=== PATIENT | male | born 1970 | race Caucasian/White ===

== ENCOUNTER 2016-05-08 03:05 | Inpatient (IN) | payer MEDICARE, MEDICAID ==
[~2016-05-08] VITALS: Ht 180.3 cm; Wt 163.9 kg
[~2016-05-08 03:05] MED LIST: ASPI-482 PO; CARV25TA PO; CIPR500T94 PO; CRESTOR40 MG PO; CRESTOR5 MG PO; DIAZ2TAB3 PO; ESOM40CA25 PO; EZET10TA3 PO; FLUT9.9S NS; FURO-69 PO; FURO40TA4 PO; HYDR8TAB29 PO; ISOS60TA2 PO; LISI10TA2 PO; MORP100T30 PO; NIAC500T PO; NITROGLYCERIN; OMEG1CAP6 PO; OXYC10TA PO; OXYM10TA28 PO; OXYM15MI4 NS; OXYM40TA PO; PRAS10TA4 PO
--- NOTE | 2016-05-08 03:23 | PHYS DOC ---
Past Medical History Past Medical History: CHF, GERD, High Cholesterol, Hypertension, Kidney Stone, [place], Other Additional Past Medical Histor: CHRONIC PAIN SEES A PAIN DR AND HAS A SIGNED CONTRCT!!!!!! Past Surgical History: Cholecystectomy, Coronary Bypass Surgery, Knee Replacement, Pacemaker, Tonsillectomy, Other Additional Past Surgical Histo: cardiac stents, LEFT FEMUR SURGERY, karsten R femur Alcohol Use: Rarely Drug Use: None Adult General Chief Complaint Chief Complaint: CHEST PAIN HPI HPI 45-year-old male with significant history of CAD with stents, CHF, hypertension , diabetes, hyperlipidemia who presents with approximately 30-45 minutes of significant chest discomfort that awoke him from sleep as well as significant shortness of breath. Patient states he feels somewhat nauseated as well. He took 2 nitroglycerin sprays without relief. EMS stated his EKG was concerning for possible STEMI and the transfer him emergently here. Patient was saturating 91% upon EMS arrival in mild respiratory distress.He does state he's had significant swelling in his lower extremities over the last several weeks. Currently he rates his pain a 7/10 on the pain scale localized all to the midsternal area. Review of Systems Review of Systems Constitutional: Denies fever or chills [] Eyes: Denies change in visual acuity, redness, or eye pain [] HENT: Denies nasal congestion or sore throat [] Respiratory: Denies cough, has shortness of breath [] Cardiovascular: No additional information not addressed in HPI [] GI: Denies abdominal pain, has nausea, denies vomiting, denies bloody stools or diarrhea [] : Denies dysuria or hematuria [] Musculoskeletal: Denies back pain or joint pain [] Integument: Denies rash or skin lesions [] Neurologic: Denies headache, focal weakness or sensory changes [] Endocrine: Denies polyuria or polydipsia [] Current Medications Current Medications Current Medications Medications (Trade) Dose Ordered Sig/Frank Start Time Stop Time Status Last Admin Dose Admin Acetaminophen (Tylenol) 650 mg PRN Q4HRS PRN 05/08/16 04:00 05/09/16 03:59 Aspirin 325 mg 325 mg 1X ONCE 05/08/16 03:30 05/08/16 03:31 DC 05/08/16 03:32 325 MG Furosemide (Lasix) 40 mg 1X ONCE 05/08/16 04:15 05/08/16 04:16 UNV 05/08/16 04:23 40 MG Morphine Sulfate 4 mg PRN Q2HR PRN 05/08/16 04:00 05/09/16 03:59 Nitroglycerin/ Dextrose (Nitroglycerin Drip) 250 ml @ 0 mls/hr 1X ONCE 05/08/16 03:30 05/08/16 03:31 DC Ondansetron HCl (Zofran) 4 mg PRN Q8HRS PRN 05/08/16 04:00 05/09/16 03:59 Allergies Allergies Allergies Coded Allergies Type Severity Reaction Last Updated Verified Penicillins Allergy Intermediate RESPIRATORY DISTRESS,HIVES 05/31/15 No Physical Exam Physical Exam Constitutional: Well developed, well nourished, mild distress, non-toxic appearance. [] HENT: Normocephalic, atraumatic, bilateral external ears normal, oropharynx moist, no oral exudates, nose normal. [] Eyes: PERRLA, EOMI, conjunctiva normal, no discharge. [] Neck: Normal range of motion, no tenderness, supple, no stridor. [] Cardiovascular:Heart rate regular rhythm, no murmur [] Lungs & Thorax: Breath sounds diminished bilaterally with mild respiratory distress [] Abdomen: Bowel sounds normal, soft, no tenderness, no masses, no pulsatile masses. [] Skin: Warm, dry, no erythema, no rash. [] Back: No tenderness, no CVA tenderness. [] Extremities: No tenderness, no cyanosis, no clubbing, ROM intact, no edema. [] Neurologic: Alert and oriented X 3, normal motor function, normal sensory function, no focal deficits noted. [] Psychologic: Affect normal, judgement normal, mood normal. [] Current Patient Data Vital Signs Vital Signs Date Time Temp Pulse Resp B/P Pulse Ox O2 Delivery O2 Flow Rate FiO2 05/08/16 04:00 20 05/08/16 03:51 97.9 84 226/162 100 NonRebreather Mask 15 97.9 Lab Values Laboratory Tests Test 05/08/16 03:10 White Blood Count 5.5x10^3/uL (4.0-11.0) Red Blood Count 4.63x10^6/uL (4.30-5.70) Hemoglobin 11.9g/dL (13.0-17.5) L Hematocrit 38.3% (39.0-53.0) L Mean Corpuscular Volume 83fL (79-100) Mean Corpuscular Hemoglobin 26pg (25-35) Mean Corpuscular Hemoglobin Concent 31g/dL (31-37) Red Cell Distribution Width 18.6% (11.5-14.5) H Platelet Count 109x10^3/uL (140-400) L Neutrophils (%) (Auto) 67% (31-73) Lymphocytes (%) (Auto) 19% (24-48) L Monocytes (%) (Auto) 13% (0-9) H Eosinophils (%) (Auto) 1% (0-3) Basophils (%) (Auto) 1% (0-3) Neutrophils # (Auto) 3.6x10^3uL (1.8-7.7) Lymphocytes # (Auto) 1.0x10^3/uL (1.0-4.8) Monocytes # (Auto) 0.7x10^3/uL (0.0-1.1) Eosinophils # (Auto) 0.1x10^3/uL (0.0-0.7) Basophils # (Auto) 0.0x10^3/uL (0.0-0.2) Sodium Level 142mmol/L (136-145) Potassium Level 4.2mmol/L (3.5-5.1) Chloride Level 104mmol/L (98-107) Carbon Dioxide Level 25mmol/L (21-32) Anion Gap 13 (6-14) Blood Urea Nitrogen 15mg/dL (8-26) Creatinine 1.2mg/dL (0.7-1.3) Estimated GFR (Cockcroft-Gault) 64.9 Glucose Level 108mg/dL (70-99) H Calcium Level 8.8mg/dL (8.5-10.1) Troponin I Quantitative 0.026ng/mL (0.000-0.055) OF-Zxl-X-Type Natriuretic Peptide 2659pg/mL (0-124) H Laboratory Tests 05/08/16 03:10 Laboratory Tests 05/08/16 03:10 EKG EKG EKG as interpreted by me shows a sinus rhythm with frequent PVCs and a nonspecific intraventricular block with an approximate rate of 87 bpm. This EKG does not meet STEMI criteria. Repeat EKG at 0336 reveals a sinus rhythm with frequent PVCs. Heart rate of approximately 90 bpm. There is continued intraventricular block seen. There is no evidence of any ongoing ischemic changes. There is artifact seen throughout. This EKG does not meet STEMI criteria at this time. Radiology/Procedures Radiology/Procedures One view of the chest as interpreted by me demonstrates significant vascular congestion and cardiomegaly. Course & Med Decision Making Course & Med Decision Making Pertinent Labs and Imaging studies reviewed. (See chart for details) 45-year-old male who's having significant chest discomfort and shortness of breath will be admitted to the hospital for further evaluation and treatment. His EKG will be repeated multiple times. I will obtain chest x-ray and laboratory workup as well as cardiac enzymes. He'll be admitted with cardiology consult to the hospital service.His chest film is consistent with vascular congestion and cardiomegaly and CHF findings. I will be giving him a dose of morphine for his ongoing chest pain. His EKG was repeated and did not show any significant change. His pro-BNP is elevated. A dose of furosemide will be given. The admitted for his ongoing chest pain and likely CHF exacerbation. His case will be discussed with Dr. Santos and a cardiology consult will be placed. His first set of cardiac enzymes was 0.03. Dragon Disclaimer Dragon Disclaimer This electronic medical record was generated, in whole or in part, using a voice recognition dictation system. Departure Departure Impression: Primary Impression: Chest pain Additional Impression: CHF exacerbation Disposition: ADMITTED INPATIENT Admitting Physician: Kiana Santos Condition: STABLE Referrals: ANDREA FOX (PCP) Problem Qualifiers JOCELYN LEAL DO May 08, 2016 03:23
[2016-05-08 03:24] LABS: BASO % 1 % (0-3); EOS % 1 % (0-3); HEMATOCRIT 38.3 % (39.0-53.0); HEMOGLOBIN 11.9 g/dL (13.0-17.5); LYMPH % 19 % (24-48); MEAN CORPUSCULAR HEMOGLOBIN 26 pg (25-35); MEAN CORPUSCULAR HGB CONC 31 g/dL (31-37); MEAN CORPUSCULAR VOLUME 83 fL (79-100); MONO % 13 % (0-9); NEUT % 67 % (31-73); PLATELET COUNT 109 x10^3/uL (140-400); RED BLOOD COUNT 4.63 x10^6/uL (4.30-5.70); RED CELL DISTRIBUTION WIDTH 18.6 % (11.5-14.5); WHITE BLOOD COUNT 5.5 x10^3/uL (4.0-11.0)
[2016-05-08] MEDS ORDERED: NITROGLYCERIN PREMIX 250 ML IV ONE (03:30)
[2016-05-08] MEDS ORDERED: ASPIRIN 325 MG TABLET PO ONE (03:30)
[2016-05-08 03:33] LABS: CALCIUM 8.8 mg/dL (8.5-10.1); CREATININE 1.2 mg/dL (0.7-1.3); GFR 64.9; POTASSIUM 4.2 mmol/L (3.5-5.1)
[2016-05-08] MEDS ORDERED: ACETAMINOPHEN 325 MG TABLET. PO PRN (04:00)
[2016-05-08] MEDS ORDERED: MORPHINE SULFATE 4 MG/ML DISP.SYRIN. IV ONE (04:00)
[2016-05-08] MEDS ORDERED: ONDANSETRON PF 4 MG/2 ML VIAL. IV PRN (04:00)
[2016-05-08] MEDS ORDERED: FUROSEMIDE 40 MG/4 ML VIAL IVP ONE (04:15)
--- NOTE | 2016-05-08 04:48 | ACF ---
Admit Criteria Forms Admit Criteria Forms Admit Criteria Forms CHEST PAIN Clinical Indications for Admission to Inpatient Care (Place 'X' for any and all applicable criteria): Admission is indicated for chest pain and ANY ONE of the following(1)(2)(3)(4)(5 ): [ ]I. Angina with acute coronary syndrome (Also use Myocardial Infarction or Angina guideline) [ ]II. Hemodynamic instability [X]III. Angina needing acute intervention as indicated by ALL of the following( 11)(12): [X]a) Unstable angina is present as indicated by angina that is ANY ONE of the following: [ ]i) New onset [ ]ii) Nocturnal [X]iii) Prolonged at rest [ ]iv) Progressive [X]b) Angina warrants acute intervention as indicated by ANY ONE of the following: [ ]i) Recurrent angina (e.g, not responding as previously to treatment) [ ]ii) Angina at rest or with low-level activities despite initial medical therapy [ ]iii) New or presumably new ST-segment depression on ECG [X]iv) Signs or symptoms of heart failure (eg, dyspnea, pulmonary edema) [ ]v) New or worsening mitral regurgitation [ ]vi) Hemodynamic instability [ ]vii) Dangerous arrhythmia (eg, sustained ventricular tachycardia) [ ]viii) History of percutaneous coronary intervention within 6 months [ ]ix) History of coronary artery bypass graft surgery [ ]x) CARMEN risk score of 2 or greater[A] [ ]xi) History of Diabetes(14) [ ]xii) High-risk cardiac ischemia findings on noninvasive testing (e.g, echocardiogram, treadmill testing, nuclear scan) [ ]xiii) Chronic renal insufficiency (ie, estimated GFR less than 60 mL/min/1.732m) [ ]xiv) Left ventricular ejection fraction less than 40% [ ]IV. Evidence of TN (eg, cardiac biomarkers positive, ST-segment elevation on ECG) also use Myocardial Infarction Criteria Form. [ ]V. Pulmonary edema [ ]. Respiratory distress [ ]VII. Chest pain indicative of serious diagnosis other than coronary artery disease (eg, aortic dissection) [ ]VIII. Contraindications and/or Inappropriate clinical situations for Observational Care in patients with Chest Pain, when ANY ONE of the following is required: [ ]a) Patient with risk factor for pulmonary embolism, acute coronary syndrome and myocardial infarction (18) [ ]b) Patient with Pulmonary embolism require an average LOS of 4.3 days, therefore emergency department observation management is inappropriate 18,23 [ ]c) Painful condition/s in the elderly, have the highest rate of recidivism after emergency department observation management (10.8%) 20,21,22 [ ]d) Elevated cardiac biomarker requires intensive and exhaustive care (19) [ ]IX. General contraindications and/or Inappropriate clinical situations for Observational Care in patients with Chest Pain, when ANY ONE of the following is required: [ ]a) Prediction of prolongation of LOS based on ANY ONE of the following may be considered as a contraindication for observational care 2, 3, 4, 5, 6, 7, 8, 9, 10, 11 [ ]i) Age > 65 yrs. [ ]ii) Patient arriving by ambulance [ ]iii) Patient with high acuity [ ]iv) Patient requiring vital sign monitoring [ ]v) Patient on IV medication [ ]b) Systolic blood pressures 180mmHg 3,12 [ ]c) Patient with altered mental status including delirium and other alteration of consciousness, (3) [ ]d) Patient whose discharge disposition will be to a fpc home or rehabilitation home should not be managed in Emergency Department Observation Unit. CMS rule requires 3 days hospital stay before such placement. 3,13 [ ]e) Patient with failure to thrive due to broad array of etiologies 3,16,17 [ ]f) Inability to ambulate 3,14 Extended stay beyond goal length of stay may be needed for (1)(28): [ ]a) Specific condition diagnosed after evaluation (eg, pulmonary embolism, aortic dissection) [ ]b) Unstable angina [ ]c) Continued suspicion of acute coronary syndrome with inability to complete needed cardiac evaluation (eg, patient clinically unable to undergo stress testing) [ ]d) Myocardial infarction (Contents from ANGINA and CHEST PAIN clinical indications for admission to inpatient care have been integrated in this form) The original [employer] content created by [employer] has been revised. The portions of the content which have been revised are identified through the use of italic text or in bold, and [facility] has neither reviewed nor approved the modified material. All other unmodified content is copyright [facility]. Please see references footnoted in the original [facility] edition 2016 GENARO GARCIA May 08, 2016 04:48
[2016-05-08 04:50] VITALS: BP 145/81
[2016-05-08] MEDS: MORPHINE SULFATE 4 MG/ML DISP.SYRIN. IV PRN ×5 (06:08→18:55)
--- NOTE | 2016-05-08 06:30 | EKG ---
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
--- NOTE | 2016-05-08 07:27 | RAD ---
EXAM: Chest one view. HISTORY: Chest pain. COMPARISON: 12/04/2012. FINDINGS: A frontal view of the chest is obtained. A left-sided pacer/defibrillator has its leads in the right atrium and right ventricle. There are changes of coronary artery bypass grafting. There are no confluent infiltrates. There appears to be mild vascular congestion. There is no pneumothorax or pleural effusion. The heart is moderately enlarged. IMPRESSION: 1. Moderate cardiomegaly and vascular congestion.
[2016-05-08 07:40] VITALS: BP 108/62
[2016-05-08] MEDS: CYCLOBENZAPRINE 10 MG TABLET. PO PRN (08:13)
--- NOTE | 2016-05-08 08:56 | EKG ---
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
[2016-05-08 10:24] LABS: INR 1.4 (0.8-1.1); PROTHROMBIN TIME PATIENT 16.6 SEC (11.7-14.0)
[2016-05-08 10:47] LABS: ALBUMIN 3.1 g/dL (3.4-5.0); DIRECT BILIRUBIN 0.5 mg/dL (0.0-0.2); MAGNESIUM 2.1 mg/dL (1.8-2.4); TOTAL BILIRUBIN 1.4 mg/dL (0.2-1.0)
[2016-05-08 10:48] LABS: CHOLESTEROL/HDL RATIO 6.4
[2016-05-08] MEDS ORDERED: SULFUR HEXAFLUORIDE MICROSPHR 25 MG VIAL. IVP ONE ×3 (11:00→14:00)
--- NOTE | 2016-05-08 12:14 | PDOC1 ---
History and Physical Past Medical History Cardiovascular: AFIB, CAD, CHF, HTN, [place], Hyperlipidemia, Other (cardiomyopathy) Pulmonary: Other (VALERY) CENTRAL NERVOUS SYSTEM: Periperal neuropathy GI: GERD Heme/Onc: No pertinent hx Hepatobiliary: No pertinent hx Psych: Anxiety Rheumatologic: No pertinent hx Infectious disease: No pertinent hx ENT: No pertinent hx Renal/: Chronic renal insuff, Other (ureterolithiasis) Endocrine: No pertinent hx Dermatology: No pertinent hx Past Surgical History Past Surgical History: Pacemaker (AICD), Cholecystectomy, CABG, Total knee replacement, Tonsillectomy, Other (left femoral fracture repair; PCI/stents) Family History Family History: Heart Disease Social History ALCOHOL: occassional Drugs: None Current Problem List Problem List Problems Medical Problems: (1) Chest pain Status: Acute (2) CHF exacerbation Status: Acute Current Medications Current Medications Current Medications Medications (Trade) Dose Ordered Sig/Frank Start Time Stop Time Status Last Admin Dose Admin Acetaminophen (Tylenol) 650 mg PRN Q4HRS PRN 05/08/16 04:00 05/09/16 03:59 Aspirin (Ecotrin) 81 mg [id number] 05/08/16 11:00 Aspirin 325 mg 325 mg 1X ONCE 05/08/16 03:30 05/08/16 03:31 DC 05/08/16 03:32 325 MG Atorvastatin Calcium (Lipitor) 80 mg QHS 05/08/16 21:00 Carvedilol (Coreg) 25 mg BIDWMEALS 05/08/16 11:00 Cyclobenzaprine HCl (Flexeril) 10 mg PRN Q8HRS PRN 05/08/16 08:15 05/08/16 08:13 10 MG EZETIMIBE (Zetia) 10 mg HS 05/08/16 21:00 Fish Oil (Fish Oil) 1,000 mg DAILY 05/08/16 11:00 Furosemide (Lasix) 40 mg BID94 05/08/16 16:00 Isosorbide Mononitrate (Imdur) 60 mg DAILY 05/08/16 11:00 Lisinopril (Prinivil) 10 mg DAILYWLUN 05/08/16 12:00 Morphine Sulfate 4 mg PRN Q2HR PRN 05/08/16 04:00 05/09/16 03:59 05/08/16 11:45 4 MG Nitroglycerin/ Dextrose (Nitroglycerin Drip) 250 ml @ 0 mls/hr 1X ONCE 05/08/16 03:30 05/08/16 03:31 DC Ondansetron HCl (Zofran) 4 mg PRN Q8HRS PRN 05/08/16 04:00 05/09/16 03:59 Pantoprazole Sodium (Protonix) 40 mg DAILYAC 05/08/16 11:00 Sulfur Hexafluoride Microspheres (Lumason) 25 mg STK-MED ONCE 05/08/16 11:05 05/08/16 11:06 DC Allergies Allergies Allergies Coded Allergies Type Severity Reaction Last Updated Verified Penicillins Allergy Intermediate RESPIRATORY DISTRESS,HIVES 05/31/15 No ROS Review of System CONSTITUTIONAL: No fever or chills EYES: No recent changes SKIN: No rash or itching CARDIOVASCULAR: No chest pain, syncope, palpitations, or edema RESPIRATORY: SOB or cough GASTROINTESTINAL: No nausea, vomiting or abdominal pain NEUROLOGICAL: No headaches or weakness ENDOCRINE: No cold or heat intolerance GENITOURINARY: No urgency or frequency of urination MUSCULOSKELETAL: healed scars. LYMPHATICS: No enlarged lymph nodes PSYCHIATRIC: No anxiety or depression Physical Exam Physical Exam GEN.: No apparent distress. Alert and oriented. HEENT: Head is normocephalic, atraumatic NECK: Supple. no jvd LUNGS: basal rales. obese. HEART: RRR, S1, S2 present. Peripheral pulses intact ABDOMEN: Soft, nontender. Positive bowel sounds. EXTREMITIES: Without any cyanosis. NEUROLOGIC: Normal speech, normal tone PSYCHIATRIC: Normal affect, normal mood. SKIN: healed scars Vitals Vitals Vital Signs Date Time Temp Pulse Resp B/P Pulse Ox O2 Delivery O2 Flow Rate FiO2 05/08/16 11:45 20 Nasal Cannula 2.0 05/08/16 07:40 97.9 78 108/62 96 97.9 Labs Labs Laboratory Tests Test 05/08/16 03:10 05/08/16 03:42 05/08/16 09:30 White Blood Count 5.5x10^3/uL (4.0-11.0) Red Blood Count 4.63x10^6/uL (4.30-5.70) Hemoglobin 11.9g/dL (13.0-17.5) Hematocrit 38.3% (39.0-53.0) Mean Corpuscular Volume 83fL (79-100) Mean Corpuscular Hemoglobin 26pg (25-35) Mean Corpuscular Hemoglobin Concent 31g/dL (31-37) Red Cell Distribution Width 18.6% (11.5-14.5) Platelet Count 109x10^3/uL (140-400) Neutrophils (%) (Auto) 67% (31-73) Lymphocytes (%) (Auto) 19% (24-48) Monocytes (%) (Auto) 13% (0-9) Eosinophils (%) (Auto) 1% (0-3) Basophils (%) (Auto) 1% (0-3) Neutrophils # (Auto) 3.6x10^3uL (1.8-7.7) Lymphocytes # (Auto) 1.0x10^3/uL (1.0-4.8) Monocytes # (Auto) 0.7x10^3/uL (0.0-1.1) Eosinophils # (Auto) 0.1x10^3/uL (0.0-0.7) Basophils # (Auto) 0.0x10^3/uL (0.0-0.2) Sodium Level 142mmol/L (136-145) Potassium Level 4.2mmol/L (3.5-5.1) Chloride Level 104mmol/L (98-107) Carbon Dioxide Level 25mmol/L (21-32) Anion Gap 13 (6-14) Blood Urea Nitrogen 15mg/dL (8-26) Creatinine 1.2mg/dL (0.7-1.3) Estimated GFR (Cockcroft-Gault) 64.9 Glucose Level 108mg/dL (70-99) Calcium Level 8.8mg/dL (8.5-10.1) Troponin I Quantitative 0.026ng/mL (0.000-0.055) 0.026ng/mL (0.000-0.055) DV-Sar-V-Type Natriuretic Peptide 2659pg/mL (0-124) Bedside Troponin I 0.03ng/ml (<0.08) Prothrombin Time 16.6SEC (11.7-14.0) Prothromb Time International Ratio 1.4 (0.8-1.1) Magnesium Level 2.1mg/dL (1.8-2.4) Total Bilirubin 1.4mg/dL (0.2-1.0) Direct Bilirubin 0.5mg/dL (0.0-0.2) Aspartate Amino Transf (AST/SGOT) 27U/L (15-37) Alanine Aminotransferase (ALT/SGPT) 18U/L (16-63) Alkaline Phosphatase 115U/L (46-116) Total Protein 8.0g/dL (6.4-8.2) Albumin 3.1g/dL (3.4-5.0) Triglycerides Level 59mg/dL (0-150) Cholesterol Level 127mg/dL (0-200) LDL Cholesterol, Calculated 95mg/dL (0-100) VLDL Cholesterol, Calculated 12mg/dL (0-40) HDL Cholesterol 20mg/dL (40-60) Cholesterol/HDL Ratio 6.4 Thyroid Stimulating Hormone (TSH) 3.841uIU/mL (0.358-3.74) Laboratory Tests Test 05/08/16 03:10 05/08/16 03:42 05/08/16 09:30 White Blood Count 5.5x10^3/uL (4.0-11.0) Red Blood Count 4.63x10^6/uL (4.30-5.70) Hemoglobin 11.9g/dL (13.0-17.5) Hematocrit 38.3% (39.0-53.0) Mean Corpuscular Volume 83fL (79-100) Mean Corpuscular Hemoglobin 26pg (25-35) Mean Corpuscular Hemoglobin Concent 31g/dL (31-37) Red Cell Distribution Width 18.6% (11.5-14.5) Platelet Count 109x10^3/uL (140-400) Neutrophils (%) (Auto) 67% (31-73) Lymphocytes (%) (Auto) 19% (24-48) Monocytes (%) (Auto) 13% (0-9) Eosinophils (%) (Auto) 1% (0-3) Basophils (%) (Auto) 1% (0-3) Neutrophils # (Auto) 3.6x10^3uL (1.8-7.7) Lymphocytes # (Auto) 1.0x10^3/uL (1.0-4.8) Monocytes # (Auto) 0.7x10^3/uL (0.0-1.1) Eosinophils # (Auto) 0.1x10^3/uL (0.0-0.7) Basophils # (Auto) 0.0x10^3/uL (0.0-0.2) Sodium Level 142mmol/L (136-145) Potassium Level 4.2mmol/L (3.5-5.1) Chloride Level 104mmol/L (98-107) Carbon Dioxide Level 25mmol/L (21-32) Anion Gap 13 (6-14) Blood Urea Nitrogen 15mg/dL (8-26) Creatinine 1.2mg/dL (0.7-1.3) Estimated GFR (Cockcroft-Gault) 64.9 Glucose Level 108mg/dL (70-99) Calcium Level 8.8mg/dL (8.5-10.1) Troponin I Quantitative 0.026ng/mL (0.000-0.055) 0.026ng/mL (0.000-0.055) RI-Kqz-B-Type Natriuretic Peptide 2659pg/mL (0-124) Bedside Troponin I 0.03ng/ml (<0.08) Prothrombin Time 16.6SEC (11.7-14.0) Prothromb Time International Ratio 1.4 (0.8-1.1) Magnesium Level 2.1mg/dL (1.8-2.4) Total Bilirubin 1.4mg/dL (0.2-1.0) Direct Bilirubin 0.5mg/dL (0.0-0.2) Aspartate Amino Transf (AST/SGOT) 27U/L (15-37) Alanine Aminotransferase (ALT/SGPT) 18U/L (16-63) Alkaline Phosphatase 115U/L (46-116) Total Protein 8.0g/dL (6.4-8.2) Albumin 3.1g/dL (3.4-5.0) Triglycerides Level 59mg/dL (0-150) Cholesterol Level 127mg/dL (0-200) LDL Cholesterol, Calculated 95mg/dL (0-100) VLDL Cholesterol, Calculated 12mg/dL (0-40) HDL Cholesterol 20mg/dL (40-60) Cholesterol/HDL Ratio 6.4 Thyroid Stimulating Hormone (TSH) 3.841uIU/mL (0.358-3.74) VTE Prophylaxis Ordered VTE Prophylaxis Devices: Yes VTE Pharmacological Prophylaxi: Contraindicated PATY VENCES MD May 08, 2016 12:14
[2016-05-08] MEDS ORDERED: OXYCODONE ER 40 MG TAB.ER.12H. PO SCH (13:00)
[2016-05-08] MEDS: FLUTICASONE 50MCG/NASAL SPRAY 16GM BOTTLE. NS SCH (13:00)
[2016-05-08 13:01] VITALS: BP 127/78
[2016-05-08] MEDS: CARVEDILOL 12.5 MG TABLET PO SCH ×2 (13:03→17:56)
[2016-05-08] MEDS: ASPIRIN ENTERIC COATED 81 MG TABLET.DR. PO SCH (13:03)
[2016-05-08] MEDS: OMEGA-3 FATTY ACIDS/FISH OIL 1,000 MG CAPSULE. PO SCH (13:04)
[2016-05-08] MEDS: ISOSORBIDE MONONITRATE ER 60 MG TAB.ER.24H PO SCH (13:04)
[2016-05-08] MEDS: PANTOPRAZOLE 40 MG TABLET. PO SCH (13:06)
--- NOTE | 2016-05-08 13:56 | CARD ---
APPROVED REPORT EXAM: Two-dimensional and M-mode echocardiogram with Doppler and color Doppler. Other Information Quality : LimitedHR: 72bpm Rhythm : Arrhythmia INDICATION Chest Pain Echo Enhancing Agent Indication: Endocardial border delineation Agent/Amount Used: Lumason 4mL RISK FACTORS Obesity 2D DIMENSIONS RVDd3.8 (2.9-3.5cm)Left Atrium(2D)5.3 (1.6-4.0cm) IVSd0.9 (0.7-1.1cm)Aortic Root(2D)3.9 (2.0-3.7cm) LVDd7.6 (3.9-5.9cm)LVOT Diameter2.3 (1.8-2.4cm) PWd1.0 (0.7-1.1cm)LVDs6.8 (2.5-4.0cm) FS (%) 11.0 %SV71.3 ml Mitral Valve MV E Peak Gr.3mmHgMV E Mean Gr.1mmHg Pulmonary Valve PV Peak Eubnaubg83.9cm/s Tricuspid Valve TR P. Vbbolzbk354mq/sTR Peak Gr.38mmHg Pulmonary Vein S1 Mupgknov67.8cm/sD2 Rfigsbba09.2cm/s LEFT VENTRICLE Technically difficult study. The Left Ventricle is mildly dilated. There is normal left ventricular w all thickness. Left ventricle systolic function is severely impaired. The Ejection Fraction is estima nicole at 20-25%. There is severe global hypokinesis of the left ventricle. Unable to assess due to [facility]. No left ventricle thrombus noted on this study. RIGHT VENTRICLE The right ventricle is mildly dilated. There is normal right ventricular wall thickness. Systolic fun ction is mildly reduced. There is a pacemaker lead in the right ventricle. ATRIA The left atrium is mildly dilated. The right atrium is mildly dilated. The interatrial septum is inta ct with no evidence for an atrial septal defect or patent foramen ovale as noted on 2-D or Doppler im aging. AORTIC VALVE The aortic valve is mildly thickened. Doppler and Color Flow revealed no significant aortic regurgita tion. There is no significant aortic valvular stenosis. MITRAL VALVE The mitral valve leaflets are thickened. There is no evidence of mitral valve prolapse. There is no m itral valve stenosis. Doppler and Color Flow revealed mild mitral valve regurgitation. TRICUSPID VALVE The tricuspid valve leaflets are thickened , but open well. Doppler and Color Flow revealed moderate tricuspid regurgitation. The pulmonary artery systolic pressure is estimated at 43 mmHg. PULMONIC VALVE Doppler and Color Flow revealed mild pulmonic valvular regurgitation. There is no pulmonic valvular s tenosis. GREAT VESSELS The aortic root is mildly enlarged. The ascending aorta is normal in size. The pulmonary artery is no rmal. The IVC was not visualized. PERICARDIAL EFFUSION There is no evidence of significant pericardial effusion. Critical Notification Critical Value: No <Conclusion> Technically difficult study. The Left Ventricle is mildly dilated. Left ventricle systolic function is severely impaired. The Ejection Fraction is estimated at 20-25%. There is severe global hypokinesis of the left ventricle. RV systolic function is mildly reduced. There is no significant aortic valvular stenosis. Doppler and Color Flow revealed no significant aortic regurgitation. Doppler and Color Flow revealed mild mitral valve regurgitation. Doppler and Color Flow revealed moderate tricuspid regurgitation. The pulmonary artery systolic pressure is estimated at 43 mmHg.
[2016-05-08 15:00] VITALS: BP 130/57
[2016-05-08] MEDS: LISINOPRIL 10 MG TABLET PO SCH (15:07)
[2016-05-08] MEDS: OXYCODONE ER 15 MG TAB.ER.12H. PO SCH ×3 (15:08→21:24)
[2016-05-08] MEDS: FUROSEMIDE 40 MG/4 ML VIAL IVP SCH (17:52)
[2016-05-08 19:28] VITALS: BP 113/56
[2016-05-08] MEDS: ATORVASTATIN CALCIUM 40 MG TABLET. PO SCH (21:22)
[2016-05-08] MEDS: NIACIN ER 500 MG TABLET.ER PO SCH (21:23)
[2016-05-08] MEDS: EZETIMIBE 10 MG TABLET PO SCH (21:23)
[2016-05-08 22:30] VITALS: BP 109/69
--- NOTE | 2016-05-08 23:19 | HP ---
ADMIT DATE: 05/08/2016 CHIEF COMPLAINT: Shortness of breath, chest pain. HISTORY OF PRESENT ILLNESS: A 45-year-old male patient with prior history of significant coronary artery disease presents to the ER with complaints of shortness of breath which was present for nearly few weeks, progressively getting worse. 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 He denies any radiation of his chest pain which is intermittent in nature. PAST MEDICAL HISTORY, REVIEW OF SYSTEMS, PHYSICAL EXAMINATION: Please see my electronic H and P. LABORATORY FINDINGS: WBC 5.5, hemoglobin 11.9, MCV is 83, platelets are 109. Chemistry: Sodium is 148, potassium 4.2, chloride is 104, anion gap is 13, BUN is 15, creatinine 1.2, ProBNP 2659, troponin is 0.026. PT 16.6, INR is 1.4. IMAGING STUDIES: Chest x-ray showed vascular congestion. EKG; personally not able to review. As per the ER report, frequent PVCs with sinus rhythm. ASSESSMENT AND PLAN: 1. Acute on chronic congestive heart failure. 2. Chronic pain. 3. possible CHF exacerbation. 4. Hyperlipidemia. 5. Hypertension. 6. Coronary artery disease with coronary artery bypass graft history. 7. History of cardiomyopathy with ejection fraction 20%. 8. Morbid obesity. 9. Chronic pain. 10. Nicotine use. PLAN: 1. We will start him on IV Lasix and continue IV diuresis, monitor intake and output and daily weight. 2. Home medications reviewed and reconciled. 3. Cardiology has been consulted for further recommendations, The patient needs Diuresis.. 4. Possible stress test by cardiology. 5. Overall prognosis is guarded. 6. Cardiac diet. 7. Pain control with p.r.n. morphine. PAYT VENCES MD DR: ELBA/[place] JOB#: [id number] / [id number] KALEB
[2016-05-09] VITALS (7 sets, daily range): BP systolic 113–151; BP diastolic 49–96
[2016-05-09] MEDS: CYCLOBENZAPRINE 10 MG TABLET. PO PRN ×2 (01:08→10:13)
[2016-05-09] MEDS: MORPHINE SULFATE 4 MG/ML DISP.SYRIN. IV PRN (01:12)
[2016-05-09 06:05] LABS: CREATININE 1.2 mg/dL (0.7-1.3); GFR 64.9
[2016-05-09 06:15] LABS: BASO % 1 % (0-3); EOS % 1 % (0-3); HEMATOCRIT 35.9 % (39.0-53.0); HEMOGLOBIN 11.2 g/dL (13.0-17.5); LYMPH # 0.9 x10^3/uL (1.0-4.8); LYMPH % 20 % (24-48); MEAN CORPUSCULAR HEMOGLOBIN 26 pg (25-35); MEAN CORPUSCULAR HGB CONC 31 g/dL (31-37); MEAN CORPUSCULAR VOLUME 82 fL (79-100); MONO % 11 % (0-9); NEUT % 68 % (31-73); PLATELET COUNT 91 x10^3/uL (140-400); RED BLOOD COUNT 4.37 x10^6/uL (4.30-5.70); RED CELL DISTRIBUTION WIDTH 18.8 % (11.5-14.5); WHITE BLOOD COUNT 4.5 x10^3/uL (4.0-11.0)
[2016-05-09] MEDS ORDERED: ASPIRIN ENTERIC COATED 81 MG TABLET.DR. PO SCH (08:00)
[2016-05-09] MEDS ORDERED: REGADENOSON 0.4 MG/5 ML DISP.SYRIN. IV ONE (10:00)
[2016-05-09] MEDS: OMEGA-3 FATTY ACIDS/FISH OIL 1,000 MG CAPSULE. PO SCH (10:11)
[2016-05-09] MEDS: CARVEDILOL 12.5 MG TABLET PO SCH ×2 (10:11→17:00)
[2016-05-09] MEDS: ISOSORBIDE MONONITRATE ER 60 MG TAB.ER.24H PO SCH (10:11)
[2016-05-09] MEDS: PANTOPRAZOLE 40 MG TABLET. PO SCH (10:12)
[2016-05-09] MEDS: OXYCODONE ER 15 MG TAB.ER.12H. PO SCH ×2 (10:12→13:00)
[2016-05-09] MEDS: LISINOPRIL 10 MG TABLET PO SCH (10:13)
[2016-05-09] MEDS: ASPIRIN ENTERIC COATED 81 MG TABLET.DR. PO SCH (10:13)
[2016-05-09] MEDS: DIAZEPAM 2 MG TABLET PO PRN ×2 (10:13→23:07)
[2016-05-09] MEDS ORDERED: OXYCODONE IR 30 MG TABLET. PO PRN (11:15)
[2016-05-09] MEDS ORDERED: OXYCODONE ER 10 MG TAB.ER.12H. PO ONE (11:15)
[2016-05-09] MEDS: FLUTICASONE 50MCG/NASAL SPRAY 16GM BOTTLE. NS SCH (11:30)
[2016-05-09] MEDS: FUROSEMIDE 40 MG/4 ML VIAL IVP SCH ×2 (11:30→15:29)
--- NOTE | 2016-05-09 12:04 | PDOC ---
PROGRESS NOTES Chief Complaint Chief Complaint CC: Chest pain, SOB 1. CAD s/p CABG (x6) 2 yrs ago 2. Acute on chronic CHF - EF 20% 3. Chronic pain 4. Hyperlipidemia 5. HTN 6. Morbid obesity 7. Tobaccoism > 20 years 8. PAFIB 9. Suspect CKD3 10. VALERY History of Present Illness History of Present Illness Pt resting in bed Recently returned from [facility] Pt says chest pain has improved Discussed which specialists are following and the work up the pt will receive Pt had no further questions at this time Vitals Vitals Vital Signs Date Time Temp Pulse Resp B/P Pulse Ox O2 Delivery O2 Flow Rate FiO2 05/09/16 11:29 20 Room Air 05/09/16 11:06 98.0 69 113/56 92 98.0 05/08/16 18:55 2.0 Physical Exam General: Alert, Oriented X3, Cooperative, No acute distress Heart: Normal S1, Normal S2, Other (irregular with PAFIB, RBBB) Lungs: Clear, Other (No wheezing) Abdomen: Soft, No tenderness, Other (obese) Extremities: No cyanosis, Other (3+ bilateral LE pitting edema) Skin: No breakdown, No significant lesion Labs LABS Laboratory Tests Test 05/08/16 15:40 05/09/16 05:00 Troponin I Quantitative 0.024ng/mL (0.000-0.055) White Blood Count 4.5x10^3/uL (4.0-11.0) Red Blood Count 4.37x10^6/uL (4.30-5.70) Hemoglobin 11.2g/dL (13.0-17.5) Hematocrit 35.9% (39.0-53.0) Mean Corpuscular Volume 82fL (79-100) Mean Corpuscular Hemoglobin 26pg (25-35) Mean Corpuscular Hemoglobin Concent 31g/dL (31-37) Red Cell Distribution Width 18.8% (11.5-14.5) Platelet Count 91x10^3/uL (140-400) Neutrophils (%) (Auto) 68% (31-73) Lymphocytes (%) (Auto) 20% (24-48) Monocytes (%) (Auto) 11% (0-9) Eosinophils (%) (Auto) 1% (0-3) Basophils (%) (Auto) 1% (0-3) Neutrophils # (Auto) 3.0x10^3uL (1.8-7.7) Lymphocytes # (Auto) 0.9x10^3/uL (1.0-4.8) Monocytes # (Auto) 0.5x10^3/uL (0.0-1.1) Eosinophils # (Auto) 0.0x10^3/uL (0.0-0.7) Basophils # (Auto) 0.0x10^3/uL (0.0-0.2) Sodium Level 141mmol/L (136-145) Potassium Level 4.0mmol/L (3.5-5.1) Chloride Level 104mmol/L (98-107) Carbon Dioxide Level 28mmol/L (21-32) Anion Gap 9 (6-14) Blood Urea Nitrogen 15mg/dL (8-26) Creatinine 1.2mg/dL (0.7-1.3) Estimated GFR (Cockcroft-Gault) 64.9 Glucose Level 64mg/dL (70-99) Calcium Level 9.0mg/dL (8.5-10.1) Review of Systems Review of Systems Complains of SOB Complains of fatigue Assessment and Plan Assessmemt and Plan Problems Medical Problems: (1) Chest pain Status: Acute (2) CHF exacerbation Status: Acute Assessment: CC: Shortness of breath 1. CHF - new 2. A fib 3. CAD 4. HTN 5. HLD 6. Morbid obesity 7. Hypoglycemia 8. Tobaccoism 9. Sleep apnea 10. Venous insufficiency Plan: Cardiology is following - IV diuretic, 2 day MPI with rest portion today Will consult pulmonology Repeat labs Continue home meds PTOT Problems: Comment Review of Relevant I have reviewed the following items qian (where applicable) has been applied. Labs Laboratory Tests Test 05/08/16 03:10 05/08/16 03:42 05/08/16 09:30 05/08/16 15:40 White Blood Count 5.5x10^3/uL (4.0-11.0) Red Blood Count 4.63x10^6/uL (4.30-5.70) Hemoglobin 11.9g/dL (13.0-17.5) Hematocrit 38.3% (39.0-53.0) Mean Corpuscular Volume 83fL (79-100) Mean Corpuscular Hemoglobin 26pg (25-35) Mean Corpuscular Hemoglobin Concent 31g/dL (31-37) Red Cell Distribution Width 18.6% (11.5-14.5) Platelet Count 109x10^3/uL (140-400) Neutrophils (%) (Auto) 67% (31-73) Lymphocytes (%) (Auto) 19% (24-48) Monocytes (%) (Auto) 13% (0-9) Eosinophils (%) (Auto) 1% (0-3) Basophils (%) (Auto) 1% (0-3) Neutrophils # (Auto) 3.6x10^3uL (1.8-7.7) Lymphocytes # (Auto) 1.0x10^3/uL (1.0-4.8) Monocytes # (Auto) 0.7x10^3/uL (0.0-1.1) Eosinophils # (Auto) 0.1x10^3/uL (0.0-0.7) Basophils # (Auto) 0.0x10^3/uL (0.0-0.2) Sodium Level 142mmol/L (136-145) Potassium Level 4.2mmol/L (3.5-5.1) Chloride Level 104mmol/L (98-107) Carbon Dioxide Level 25mmol/L (21-32) Anion Gap 13 (6-14) Blood Urea Nitrogen 15mg/dL (8-26) Creatinine 1.2mg/dL (0.7-1.3) Estimated GFR (Cockcroft-Gault) 64.9 Glucose Level 108mg/dL (70-99) Calcium Level 8.8mg/dL (8.5-10.1) Troponin I Quantitative 0.026ng/mL (0.000-0.055) 0.026ng/mL (0.000-0.055) 0.024ng/mL (0.000-0.055) KO-Wir-Y-Type Natriuretic Peptide 2659pg/mL (0-124) Bedside Troponin I 0.03ng/ml (<0.08) Prothrombin Time 16.6SEC (11.7-14.0) Prothromb Time International Ratio 1.4 (0.8-1.1) Magnesium Level 2.1mg/dL (1.8-2.4) Total Bilirubin 1.4mg/dL (0.2-1.0) Direct Bilirubin 0.5mg/dL (0.0-0.2) Aspartate Amino Transf (AST/SGOT) 27U/L (15-37) Alanine Aminotransferase (ALT/SGPT) 18U/L (16-63) Alkaline Phosphatase 115U/L (46-116) Total Protein 8.0g/dL (6.4-8.2) Albumin 3.1g/dL (3.4-5.0) Triglycerides Level 59mg/dL (0-150) Cholesterol Level 127mg/dL (0-200) LDL Cholesterol, Calculated 95mg/dL (0-100) VLDL Cholesterol, Calculated 12mg/dL (0-40) HDL Cholesterol 20mg/dL (40-60) Cholesterol/HDL Ratio 6.4 Thyroid Stimulating Hormone (TSH) 3.841uIU/mL (0.358-3.74) Test 05/09/16 05:00 White Blood Count 4.5x10^3/uL (4.0-11.0) Red Blood Count 4.37x10^6/uL (4.30-5.70) Hemoglobin 11.2g/dL (13.0-17.5) Hematocrit 35.9% (39.0-53.0) Mean Corpuscular Volume 82fL (79-100) Mean Corpuscular Hemoglobin 26pg (25-35) Mean Corpuscular Hemoglobin Concent 31g/dL (31-37) Red Cell Distribution Width 18.8% (11.5-14.5) Platelet Count 91x10^3/uL (140-400) Neutrophils (%) (Auto) 68% (31-73) Lymphocytes (%) (Auto) 20% (24-48) Monocytes (%) (Auto) 11% (0-9) Eosinophils (%) (Auto) 1% (0-3) Basophils (%) (Auto) 1% (0-3) Neutrophils # (Auto) 3.0x10^3uL (1.8-7.7) Lymphocytes # (Auto) 0.9x10^3/uL (1.0-4.8) Monocytes # (Auto) 0.5x10^3/uL (0.0-1.1) Eosinophils # (Auto) 0.0x10^3/uL (0.0-0.7) Basophils # (Auto) 0.0x10^3/uL (0.0-0.2) Sodium Level 141mmol/L (136-145) Potassium Level 4.0mmol/L (3.5-5.1) Chloride Level 104mmol/L (98-107) Carbon Dioxide Level 28mmol/L (21-32) Anion Gap 9 (6-14) Blood Urea Nitrogen 15mg/dL (8-26) Creatinine 1.2mg/dL (0.7-1.3) Estimated GFR (Cockcroft-Gault) 64.9 Glucose Level 64mg/dL (70-99) Calcium Level 9.0mg/dL (8.5-10.1) Laboratory Tests Test 05/08/16 15:40 05/09/16 05:00 Troponin I Quantitative 0.024ng/mL (0.000-0.055) White Blood Count 4.5x10^3/uL (4.0-11.0) Red Blood Count 4.37x10^6/uL (4.30-5.70) Hemoglobin 11.2g/dL (13.0-17.5) Hematocrit 35.9% (39.0-53.0) Mean Corpuscular Volume 82fL (79-100) Mean Corpuscular Hemoglobin 26pg (25-35) Mean Corpuscular Hemoglobin Concent 31g/dL (31-37) Red Cell Distribution Width 18.8% (11.5-14.5) Platelet Count 91x10^3/uL (140-400) Neutrophils (%) (Auto) 68% (31-73) Lymphocytes (%) (Auto) 20% (24-48) Monocytes (%) (Auto) 11% (0-9) Eosinophils (%) (Auto) 1% (0-3) Basophils (%) (Auto) 1% (0-3) Neutrophils # (Auto) 3.0x10^3uL (1.8-7.7) Lymphocytes # (Auto) 0.9x10^3/uL (1.0-4.8) Monocytes # (Auto) 0.5x10^3/uL (0.0-1.1) Eosinophils # (Auto) 0.0x10^3/uL (0.0-0.7) Basophils # (Auto) 0.0x10^3/uL (0.0-0.2) Sodium Level 141mmol/L (136-145) Potassium Level 4.0mmol/L (3.5-5.1) Chloride Level 104mmol/L (98-107) Carbon Dioxide Level 28mmol/L (21-32) Anion Gap 9 (6-14) Blood Urea Nitrogen 15mg/dL (8-26) Creatinine 1.2mg/dL (0.7-1.3) Estimated GFR (Cockcroft-Gault) 64.9 Glucose Level 64mg/dL (70-99) Calcium Level 9.0mg/dL (8.5-10.1) Medications Current Medications Aspirin 325 mg 325 mg 1X ONCE PO Last administered on 05/08/16 03:32; Start 05/08/16 at 03:30; Stop 05/08/16 at 03:31; Status DC Nitroglycerin/ Dextrose (Nitroglycerin Drip) 250 ml @ 0 mls/hr 1X ONCE IV ; Start 05/08/16 at 03:30; Stop 05/08/16 at 03:31; Status DC Morphine Sulfate 4 mg 1X ONCE IV Last administered on 05/08/16 04:00; Start 05/08/16 at 04:00; Stop 05/08/16 at 04:01; Status DC Ondansetron HCl (Zofran) 4 mg PRN Q8HRS PRN IV NAUSEA/VOMITING; Start 05/08/16 at 04:00; Stop 05/09/16 at 04:00; Status DC Morphine Sulfate 4 mg PRN Q2HR PRN IV PAIN Last administered on 05/09/16 01:12 ; Start 05/08/16 at 04:00; Stop 05/09/16 at 04:00; Status DC Acetaminophen (Tylenol) 650 mg PRN Q4HRS PRN PO FEVER; Start 05/08/16 at 04:00 ; Stop 05/09/16 at 04:00; Status DC Furosemide (Lasix) 40 mg 1X ONCE IVP Last administered on 05/08/16 04:23; Start 05/08/16 at 04:15; Stop 05/08/16 at 04:59; Status DC Cyclobenzaprine HCl (Flexeril) 10 mg PRN Q8HRS PRN PO MUSCLE SPASMS Last administered on 05/09/16 10:13; Start 05/08/16 at 08:15 Furosemide (Lasix) 40 mg BID94 IVP Last administered on 05/09/16 11:30; Start 05/08/16 at 16:00 Aspirin (Ecotrin) 81 mg DAILYWBKFT PO Last administered on 05/09/16 10:13; Start 05/08/16 at 11:00 EZETIMIBE (Zetia) 10 mg HS PO Last administered on 05/08/16 21:23; Start 05/08 at 21:00 Isosorbide Mononitrate (Imdur) 60 mg DAILY PO Last administered on 05/09/16 10 :11; Start 05/08/16 at 11:00 Lisinopril (Prinivil) 10 mg DAILYWLUN PO Last administered on 05/09/16 10:13; Start 05/08/16 at 12:00 Fish Oil (Fish Oil) 1,000 mg DAILY PO Last administered on 05/09/16 10:11; Start 05/08/16 at 11:00 Carvedilol (Coreg) 25 mg BIDWMEALS PO Last administered on 05/09/16 10:11; Start 05/08/16 at 11:00 Pantoprazole Sodium (Protonix) 40 mg DAILYAC PO Last administered on 05/09/16 10:12; Start 05/08/16 at 11:00 Atorvastatin Calcium (Lipitor) 80 mg QHS PO Last administered on 05/08/16 21: 22; Start 05/08/16 at 21:00 Sulfur Hexafluoride Microspheres (Lumason) 25 mg STK-MED ONCE IVP ; Start at 11:05; Stop 05/08/16 at 11:06; Status DC Diazepam (Valium) 2 mg Q8HRS PRN PO ANXIETY Last administered on 05/09/16 10: 13; Start 05/08/16 at 12:15 Niacin (Slo-Niacin) 500 mg QHS PO Last administered on 05/08/16 21:23; Start 05/08/16 at 21:00 Fluticasone Propionate (Flonase) 2 spray DAILY NS Last administered on 11:30; Start 05/08/16 at 13:00 Oxycodone HCl (Oxycontin) 80 mg QID PO ; Start 05/08/16 at 13:00; Stop 05/08/16 at 14:07; Status DC Aspirin (Ecotrin) 81 mg DAILYWBKFT PO ; Start 05/09/16 at 08:00; Status UNV Sulfur Hexafluoride Microspheres (Lumason) 25 mg 1X ONCE IVP ; Start 05/08/16 at 14:00; Stop 05/08/16 at 14:04; Status DC Oxycodone HCl (Oxycontin) 30 mg QID PO Last administered on 05/09/16 10:12; Start 05/08/16 at 14:00 Regadenoson (Lexiscan) 0.4 mg 1X ONCE IV Last administered on 05/09/16 09:28 ; Start 05/09/16 at 10:00; Stop 05/09/16 at 10:01; Status DC Oxycodone HCl (Oxycontin) 50 mg 1X ONCE PO Last administered on 05/09/16 11: 29; Start 05/09/16 at 11:15; Stop 05/09/16 at 11:16; Status DC Oxycodone HCl (Roxicodone) 20 mg PRN QID PRN PO PAIN; Start 05/09/16 at 11:15 Oxycodone HCl (Oxycontin) 80 mg Q6HRS PO ; Start 05/09/16 at 18:00 Active Scripts Active Reported Fish Oil 1,000 Mg Capsule ([place]-3 Fatty Acids/Fish Oil) 1 Each Capsule 1 Each PO DAILY [Ntroglycerin Dilworth] PRN PRN Lisinopril 10 Mg Tablet 1 Tab PO DAILYWLUN Isosorbide Mononitrate Er (Isosorbide Mononitrate) 60 Mg Tab.er.24h 1 Tab PO DAILY Crestor (Rosuvastatin Calcium) 40 Mg Tablet 1 Tab PO QHS Furosemide 40 Mg Tablet 1 Tab PO BID Aspir 81 (Aspirin) 81 Mg Tablet.dr 1 Tab PO DAILY Zetia (Ezetimibe) 10 Mg Tablet 10 Mg PO HS Flonase Allergy Relief (Fluticasone Propionate) 9.9 Ml Dilworth.susp 2 Sprays NS DAILY PRN Opana (Oxymorphone Hcl) 10 Mg Tablet 10 Mg PO QID PRN Opana Er (Oxymorphone Hcl) 40 Mg Tab.er.12h 40 Mg PO QID Niaspan (Niacin) 500 Mg Tab.er.24h 1 Tab PO QHS Esomeprazole Capsule (Esomeprazole Strontium) 40 Mg Capsule.dr 40 Mg PO DAILYAC Diazepam 2 Mg Tablet 2 Mg PO PRN Q4-6HRS PRN Coreg (Carvedilol) 25 Mg Tablet 1 Tab PO BID Vitals/I & O Vital Sign - Last 24 Hours 05/08/16 05/08/16 05/08/16 05/08/16 13:01 13:03 13:04 15:00 Temp 98.3 98.4 98.3 98.4 Pulse 73 73 73 74 Resp 22 22 B/P 127/78 127/78 127/78 130/57 Pulse Ox 97 93 O2 Delivery Nasal Cannula Nasal Cannula O2 Flow Rate 2.0 2.0 05/08/16 05/08/16 05/08/16 05/08/16 15:06 15:07 15:08 15:36 Pulse 74 Resp 24 24 18 B/P 123/64 O2 Delivery Nasal Cannula Nasal Cannula O2 Flow Rate 2.0 2.0 2.0 05/08/16 05/08/16 05/08/16 05/08/16 17:56 18:55 19:28 20:00 Temp 97.9 97.9 Pulse 79 67 Resp 18 20 B/P 110/55 113/56 Pulse Ox 94 O2 Delivery Nasal Cannula Room Air Room Air O2 Flow Rate 2.0 05/08/16 05/08/16 05/08/16 05/08/16 20:00 21:00 21:24 22:30 Temp 98.2 98.2 Pulse 65 Resp 20 B/P 109/69 Pulse Ox 93 O2 Delivery Room Air Room Air Room Air Room Air 05/09/16 05/09/16 05/09/16 05/09/16 01:12 02:53 07:33 08:00 Temp 98.0 98.8 98.0 98.8 Pulse 65 84 Resp 22 22 B/P 113/71 134/66 Pulse Ox 92 92 O2 Delivery Room Air Room Air Room Air Room Air 05/09/16 05/09/16 05/09/16 05/09/16 10:11 10:11 10:12 10:13 Pulse 84 84 84 Resp 20 B/P 134/66 134/66 134/66 O2 Delivery Room Air 05/09/16 05/09/16 11:06 11:29 Temp 98.0 98.0 Pulse 69 Resp 20 B/P 113/56 Pulse Ox 92 O2 Delivery Room Air Room Air Intake and Output 05/08/16 05/08/16 05/09/16 15:00 23:00 07:00 Intake Total 850 ml 650 ml Output Total 3750 ml 300 ml Balance -2900 ml 350 ml WALLY ESQUEDA III DO May 09, 2016 12:04
--- NOTE | 2016-05-09 14:23 | RAD ---
APPROVED REPORT Test Type: Pharmacological Stress Nurse/Tech: Gopal Vazquez RN Test Indications: chest pain Cardiac History: see ehr Medications: see ehr Medical History: see ehr Resting ECG: SR w/ BBB Resting Heart Rate: 77 bpm Resting Blood Pressure: 130/45mmHg Pretest Chest Pain: None Nurse/Tech Notes Lungs CTA, S1, S2 Consent: The procedure was explained to the patient in lay terms. Informed consent was witnessed. Dante eout was entered into [employer]. History and Stress Test performed by [facility]. Details Pharmacologic stress testing was performed using 0.4mg per 5ml of regadenoson given intravenously ove r 7-10 seconds. Stress Symptoms No chest pain or symptoms. POST EXERCISE Reason for Termination: Infusion complete Max HR: 115 bpm Max Blood Pressure: 121/55mmHg Blood Pressure response to exercise: Normal blood pressure response during stress. Chest Pain: No. Arrhythmia: No. ST Change: No. INTERPRETATION Stress EKG Conclusion: Baseline EKG showed sinus rhythm with right bundle-branch block. Nondiagnosti c changes at peak stress. No significant arrhythmias. Imaging Protocol IMAGE PROTOCOL: Rest Tc-99m/stress Tc-99m 2 days Rest: Stress: Viability: Radiopharm.Tc99m ElwifsgqrMj10s Sestamibi Dose33.9mCi 32mCi Img Date 05/08/2016 05/09/2016 Inj-Img [id number]. 60min. Rest Admin Site:IV - Right AntecubitalAdministrator:RAFAEL Juárez Stress Admin Site: IV - Right AntecubitalAdministrator: FELICIA Jurado, ARRT (R)(N) STRESS DATA End Diast. Vol.405.0mlAv. Heart Rate79.0bpm End Syst. Vol.331.0mlCO Index BSA0.0L/min Myocardial Zqcj545.0gEject. Aozmhbrp32.0% Stress Rates Pk. Fill Rate1.35EDV/secLVtime Pk. Fill 119.60msec Pk. Empty Rate1.32ESV/secLVtime Pk. Pafso751.47msec 03/17 Pk. Fill0.80EDV/sec Stress Scores Regional WT2.00Summed WT30.00 Regional WM4.00Summed WM50.00 LV Perfusion Scintigraphic images showed large predominantly fixed perfusion defect involving the mid to distal an terior wall and the entire apical wall consistent with previous myocardial infarction with small amou nt of reversibility consistent with gila-infarct ischemia. Wall Motion Severe global left ventricle systolic dysfunction and akinetic apical wall with ejection fraction jose francisco culated at 18%. LV Perf. Quant 17 Seg. SSS27.00 17 Seg. SRS23.00 17 Seg. SDS6.00 Stress Defect Extent (% LAD)60.00Rest Defect Extent (% LAD)53.10Rev. Defect Extent (% LAD)13.80 Stress Defect Extent (% LCX) 68.80Rest Defect Extent (% LCX)58.80Rev. Defect Extent (% LCX)51.30 Stress Defect Extent (% RCA)14.40Rest Defect Extent (% RCA)12.20Rev. Defect Extent (% RCA)10.00 Stress Defect Extent (% MILAGRO)49.30Rest Defect Extent (% MILAGRO)44.80Rev. Defect Extent (% MILAGRO)20.90 Conclusion 1. Regadenoson cardioisotope stress test showed large infarct involving the mid to distal anterior wa ll and the entire apical wall with small amount of gila-infarct ischemia. 2. Severe global left ventricle systolic dysfunction and akinetic apical wall with ejection fraction calculated at 18%. 3. Intermediate risk for cardiac events based on diminished left ventricular function.
[2016-05-09] MEDS: OXYCODONE ER 40 MG TAB.ER.12H. PO SCH ×2 (18:48→23:12)
[2016-05-09] MEDS: NYSTATIN TOPICAL POWDER 15GM BOTTLE. TP SCH (18:51)
--- NOTE | 2016-05-09 20:03 | PDOC ---
Provider Note Provider Note DICTATED EDITH PAPPAS MD May 09, 2016 20:03
[2016-05-09] MEDS: NIACIN ER 500 MG TABLET.ER PO SCH (21:11)
[2016-05-09] MEDS: ATORVASTATIN CALCIUM 40 MG TABLET. PO SCH (21:11)
[2016-05-09] MEDS: EZETIMIBE 10 MG TABLET PO SCH (21:11)
[2016-05-09] MEDS: OXYCODONE IR 5 MG TABLET. PO PRN (21:13)
--- NOTE | 2016-05-09 21:31 | CONS ---
DATE OF CONSULTATION: ATTENDING PHYSICIAN: Dr. Kiana Santos. REASON FOR CONSULTATION: Dyspnea. HISTORY OF PRESENT ILLNESS: The patient is a 45-year-old male who has history of known cardiomyopathy. He has a history of coronary artery bypass grafting and has pacemaker and has been followed at [facility]. He was brought into the hospital complaining of increasing dyspnea. No chest pain. He had increasing leg edema. His chest x-ray was reviewed, which showed cardiomegaly and evidence of vascular congestion. AICD was also seen. Consultation requested for further evaluation and management. PAST MEDICAL HISTORY: History of AFib, history of CAD, history of severe cardiomyopathy, history of ejection fraction of 20-25%, history of tobaccoism for 20 years, half pack per day, trying to quit. History of VALERY both obstructive and central and does not use the CPAP regularly, peripheral neuropathy, morbid obesity. PAST SURGICAL HISTORY: Pacemaker, AICD, cholecystectomy, CABG, total knee replacement, tonsillectomy. FAMILY HISTORY: Coronary artery disease. ALLERGIES: PENICILLIN. MEDICATIONS: Reviewed as listed in the MRAD including furosemide. REVIEW OF SYSTEMS: Twelve-point system obtained. Pertinent positives discussed in history of present illness, otherwise noncontributory. All systems that were negative were reviewed as well. SOCIAL HISTORY: Smoked for 20 years, half pack per day and trying to quit. PHYSICAL EXAMINATION: VITAL SIGNS: Blood pressure 133/49, afebrile, pulse ox 95% on room air. NECK: Supple. LUNGS: Diminished breath sounds posteriorly. No wheezing. CARDIOVASCULAR: Regular rate and rhythm. ABDOMEN: Soft, obese. EXTREMITIES: With bilateral pitting edema on the right lower extremity and old healed surgeries on the left lower extremity and pitting edema. LABORATORY DATA: Reviewed. CBC with a white cell count 4.5, hemoglobin 11.2. Chemistry: BUN 15, creatinine 1.2. IMPRESSION: 1. Acute progressive dyspnea secondary to acute on chronic systolic heart failure. 2. Known history of severe cardiomyopathy with an EF of 20-25%, status post automatic implantable cardioverter defibrillator, history of coronary artery bypass grafting done been followed by [facility]. 3. Mild history of tobacco use. Possible underlying mild chronic obstructive pulmonary disease. 4. History of obstructive and central sleep apnea, not compliant with continuous positive airway pressure. RECOMMENDATIONS: 1. Continue diuresis per Cardiology. 2. Follow chest x-ray. 3. Discussed with the patient the importance of use of CPAP in the setting of severe cardiomyopathy. He understands that and will try to use it regularly. 4. Follow cardiology recommendation. 5. Discussed with Dr. Santos. EDITH PAPPAS MD DR: LUIS ANTONIO/[place] JOB#: [id number] / [id number] KALEB
[2016-05-10] VITALS (7 sets, daily range): BP systolic 98–127; BP diastolic 36–66
[2016-05-10] MEDS: CYCLOBENZAPRINE 10 MG TABLET. PO PRN ×3 (04:34→21:34)
[2016-05-10] MEDS: OXYCODONE IR 5 MG TABLET. PO PRN ×2 (04:36→21:36)
[2016-05-10] MEDS: OXYCODONE ER 40 MG TAB.ER.12H. PO SCH ×3 (06:07→18:31)
[2016-05-10 06:23] LABS: BASO % 1 % (0-3); EOS % 1 % (0-3); HEMATOCRIT 35.7 % (39.0-53.0); HEMOGLOBIN 11.2 g/dL (13.0-17.5); LYMPH # 1.2 x10^3/uL (1.0-4.8); LYMPH % 20 % (24-48); MEAN CORPUSCULAR HEMOGLOBIN 26 pg (25-35); MEAN CORPUSCULAR HGB CONC 31 g/dL (31-37); MEAN CORPUSCULAR VOLUME 82 fL (79-100); MONO % 13 % (0-9); NEUT % 66 % (31-73); PLATELET COUNT 109 x10^3/uL (140-400); RED BLOOD COUNT 4.36 x10^6/uL (4.30-5.70); RED CELL DISTRIBUTION WIDTH 18.6 % (11.5-14.5); WHITE BLOOD COUNT 6.1 x10^3/uL (4.0-11.0)
[2016-05-10 06:38] LABS: CALCIUM 8.6 mg/dL (8.5-10.1); CREATININE 1.6 mg/dL (0.7-1.3); GFR 46.6; POTASSIUM 3.9 mmol/L (3.5-5.1)
[2016-05-10] MEDS: PANTOPRAZOLE 40 MG TABLET. PO SCH (09:29)
[2016-05-10] MEDS: NYSTATIN TOPICAL POWDER 15GM BOTTLE. TP SCH ×2 (09:29→21:39)
[2016-05-10] MEDS: ASPIRIN ENTERIC COATED 81 MG TABLET.DR. PO SCH (09:29)
[2016-05-10] MEDS: ISOSORBIDE MONONITRATE ER 60 MG TAB.ER.24H PO SCH (09:30)
[2016-05-10] MEDS: OMEGA-3 FATTY ACIDS/FISH OIL 1,000 MG CAPSULE. PO SCH (09:30)
[2016-05-10] MEDS: FUROSEMIDE 40 MG/4 ML VIAL IVP SCH ×2 (09:30→16:35)
[2016-05-10] MEDS: CARVEDILOL 12.5 MG TABLET PO SCH ×2 (09:31→16:35)
[2016-05-10] MEDS: FLUTICASONE 50MCG/NASAL SPRAY 16GM BOTTLE. NS SCH (09:31)
[2016-05-10] MEDS: DIAZEPAM 2 MG TABLET PO PRN ×2 (09:42→16:35)
--- NOTE | 2016-05-10 10:37 | PDOC ---
PULMONARY PROGRESS NOTES Subjective feels better Vitals Vital Signs Date Time Temp Pulse Resp B/P Pulse Ox O2 Delivery O2 Flow Rate FiO2 05/10/16 09:48 98 123/47 05/10/16 07:49 98.2 24 93 Room Air 98.2 General: Alert, No acute distress Lungs: Clear Cardiovascular: S1 Abdomen: Soft, Other (obese) Neuro Exam: Alert Extremities: Other (2+edema) Labs Laboratory Tests Test 05/08/16 15:40 05/09/16 05:00 05/10/16 05:45 Troponin I Quantitative 0.024ng/mL (0.000-0.055) White Blood Count 4.5x10^3/uL (4.0-11.0) 6.1x10^3/uL (4.0-11.0) Red Blood Count 4.37x10^6/uL (4.30-5.70) 4.36x10^6/uL (4.30-5.70) Hemoglobin 11.2g/dL (13.0-17.5) 11.2g/dL (13.0-17.5) Hematocrit 35.9% (39.0-53.0) 35.7% (39.0-53.0) Mean Corpuscular Volume 82fL (79-100) 82fL (79-100) Mean Corpuscular Hemoglobin 26pg (25-35) 26pg (25-35) Mean Corpuscular Hemoglobin Concent 31g/dL (31-37) 31g/dL (31-37) Red Cell Distribution Width 18.8% (11.5-14.5) 18.6% (11.5-14.5) Platelet Count 91x10^3/uL (140-400) 109x10^3/uL (140-400) Neutrophils (%) (Auto) 68% (31-73) 66% (31-73) Lymphocytes (%) (Auto) 20% (24-48) 20% (24-48) Monocytes (%) (Auto) 11% (0-9) 13% (0-9) Eosinophils (%) (Auto) 1% (0-3) 1% (0-3) Basophils (%) (Auto) 1% (0-3) 1% (0-3) Neutrophils # (Auto) 3.0x10^3uL (1.8-7.7) 4.0x10^3uL (1.8-7.7) Lymphocytes # (Auto) 0.9x10^3/uL (1.0-4.8) 1.2x10^3/uL (1.0-4.8) Monocytes # (Auto) 0.5x10^3/uL (0.0-1.1) 0.8x10^3/uL (0.0-1.1) Eosinophils # (Auto) 0.0x10^3/uL (0.0-0.7) 0.1x10^3/uL (0.0-0.7) Basophils # (Auto) 0.0x10^3/uL (0.0-0.2) 0.0x10^3/uL (0.0-0.2) Sodium Level 141mmol/L (136-145) 138mmol/L (136-145) Potassium Level 4.0mmol/L (3.5-5.1) 3.9mmol/L (3.5-5.1) Chloride Level 104mmol/L (98-107) 102mmol/L (98-107) Carbon Dioxide Level 28mmol/L (21-32) 28mmol/L (21-32) Anion Gap 9 (6-14) 8 (6-14) Blood Urea Nitrogen 15mg/dL (8-26) 20mg/dL (8-26) Creatinine 1.2mg/dL (0.7-1.3) 1.6mg/dL (0.7-1.3) Estimated GFR (Cockcroft-Gault) 64.9 46.6 Glucose Level 64mg/dL (70-99) 85mg/dL (70-99) Calcium Level 9.0mg/dL (8.5-10.1) 8.6mg/dL (8.5-10.1) Laboratory Tests Test 05/10/16 05:45 White Blood Count 6.1x10^3/uL (4.0-11.0) Red Blood Count 4.36x10^6/uL (4.30-5.70) Hemoglobin 11.2g/dL (13.0-17.5) Hematocrit 35.7% (39.0-53.0) Mean Corpuscular Volume 82fL (79-100) Mean Corpuscular Hemoglobin 26pg (25-35) Mean Corpuscular Hemoglobin Concent 31g/dL (31-37) Red Cell Distribution Width 18.6% (11.5-14.5) Platelet Count 109x10^3/uL (140-400) Neutrophils (%) (Auto) 66% (31-73) Lymphocytes (%) (Auto) 20% (24-48) Monocytes (%) (Auto) 13% (0-9) Eosinophils (%) (Auto) 1% (0-3) Basophils (%) (Auto) 1% (0-3) Neutrophils # (Auto) 4.0x10^3uL (1.8-7.7) Lymphocytes # (Auto) 1.2x10^3/uL (1.0-4.8) Monocytes # (Auto) 0.8x10^3/uL (0.0-1.1) Eosinophils # (Auto) 0.1x10^3/uL (0.0-0.7) Basophils # (Auto) 0.0x10^3/uL (0.0-0.2) Sodium Level 138mmol/L (136-145) Potassium Level 3.9mmol/L (3.5-5.1) Chloride Level 102mmol/L (98-107) Carbon Dioxide Level 28mmol/L (21-32) Anion Gap 8 (6-14) Blood Urea Nitrogen 20mg/dL (8-26) Creatinine 1.6mg/dL (0.7-1.3) Estimated GFR (Cockcroft-Gault) 46.6 Glucose Level 85mg/dL (70-99) Calcium Level 8.6mg/dL (8.5-10.1) Medications Active Scripts Medications Dose Route/Sig Days Date Category Fish Oil 1,000 Mg Capsule ([place]mond-3 Fatty Acids/Fish Oil) 1 Each Capsule 1 Each PO DAILY 05/31/15 Reported [Ntroglycerin [place]] PRN PRN 05/31/15 Reported Lisinopril 10 Mg Tablet 1 Tab PO DAILYWLUN 05/31/15 Reported Isosorbide Mononitrate Er (Isosorbide Mononitrate) 60 Mg Tab.er.24h 1 Tab PO DAILY 05/31/15 Reported Crestor (Rosuvastatin Calcium) 40 Mg Tablet 1 Tab PO QHS 05/31/15 Reported Furosemide 40 Mg Tablet 1 Tab PO BID 05/31/15 Reported Aspir 81 (Aspirin) 81 Mg Tablet.dr 1 Tab PO DAILY 04/21/15 Reported Zetia (Ezetimibe) 10 Mg Tablet 10 Mg PO HS 04/21/15 Reported Flonase Allergy Relief (Fluticasone Propionate) 9.9 Ml [place].susp 2 Sprays NS DAILY PRN 04/21/15 Reported Opana (Oxymorphone Hcl) 10 Mg Tablet 10 Mg PO QID PRN 04/21/15 Reported Opana Er (Oxymorphone Hcl) 40 Mg Tab.er.12h 40 Mg PO QID 04/21/15 Reported Niaspan (Niacin) 500 Mg Tab.er.24h 1 Tab PO QHS 11/17/13 Reported Esomeprazole Capsule (Esomeprazole Strontium) 40 Mg Capsule.dr 40 Mg PO DAILYAC 11/17/13 Reported Diazepam 2 Mg Tablet 2 Mg PO PRN Q4-6HRS PRN 11/17/13 Reported Coreg (Carvedilol) 25 Mg Tablet 1 Tab PO BID 11/17/13 Reported Impression . 1. Acute progressive dyspnea secondary to acute on chronic systolic heart failure. 2. Known history of severe cardiomyopathy with an EF of 20-25%, status post automatic implantable cardioverter defibrillator, history of coronary artery bypass grafting done been followed by [facility]. 3. Mild history of tobacco use. Possible underlying mild chronic obstructive pulmonary disease. 4. History of obstructive and central sleep apnea, not compliant with continuous positive airway pressure. Plan . 1. Continue diuresis per Cardiology. 2. Follow chest x-ray in am 3. Discussed with the patient the importance of use of CPAP in the setting of severe cardiomyopathy. He understands that and will try to use it regularly. 4. Follow cardiology recommendation. 5. can go home in am EDITH PAPPAS MD May 10, 2016 10:37
[2016-05-10] MEDS: LISINOPRIL 10 MG TABLET PO SCH (12:00)
--- NOTE | 2016-05-10 12:59 | PDOC ---
PROGRESS NOTES Chief Complaint Chief Complaint CC: Chest pain, SOB 1. CAD s/p CABG (x6) 2 yrs ago 2. Acute on chronic CHF - EF 20% 3. Chronic pain 4. Hyperlipidemia 5. HTN 6. Morbid obesity 7. Tobaccoism > 20 years 8. PAFIB 9. Suspect CKD3 10. VALERY History of Present Illness History of Present Illness Pt feels better today. SOA minimally when up walking but no longer at rest. Pt tolerating Room Air during exam and questioning. [facility]- VSS; Awaiting completion of work-up; Pulm ok with discharge in AM Vitals Vitals Vital Signs Date Time Temp Pulse Resp B/P Pulse Ox O2 Delivery O2 Flow Rate FiO2 05/10/16 11:07 97.8 88 23 127/36 92 Room Air 97.8 Physical Exam General: Alert, Oriented X3, Cooperative, No acute distress Heart: Normal S1, Normal S2, Other (irregular rate) Lungs: Clear, Other (no wheezes or crackles) Abdomen: Soft, No tenderness, Other (obese) Extremities: No cyanosis, Other (3+ bilateral LE pitting edema; Large Anterior Scar on cortez of LLE) Skin: No breakdown, No significant lesion Labs LABS Laboratory Tests Test 05/10/16 05:45 White Blood Count 6.1x10^3/uL (4.0-11.0) Red Blood Count 4.36x10^6/uL (4.30-5.70) Hemoglobin 11.2g/dL (13.0-17.5) Hematocrit 35.7% (39.0-53.0) Mean Corpuscular Volume 82fL (79-100) Mean Corpuscular Hemoglobin 26pg (25-35) Mean Corpuscular Hemoglobin Concent 31g/dL (31-37) Red Cell Distribution Width 18.6% (11.5-14.5) Platelet Count 109x10^3/uL (140-400) Neutrophils (%) (Auto) 66% (31-73) Lymphocytes (%) (Auto) 20% (24-48) Monocytes (%) (Auto) 13% (0-9) Eosinophils (%) (Auto) 1% (0-3) Basophils (%) (Auto) 1% (0-3) Neutrophils # (Auto) 4.0x10^3uL (1.8-7.7) Lymphocytes # (Auto) 1.2x10^3/uL (1.0-4.8) Monocytes # (Auto) 0.8x10^3/uL (0.0-1.1) Eosinophils # (Auto) 0.1x10^3/uL (0.0-0.7) Basophils # (Auto) 0.0x10^3/uL (0.0-0.2) Sodium Level 138mmol/L (136-145) Potassium Level 3.9mmol/L (3.5-5.1) Chloride Level 102mmol/L (98-107) Carbon Dioxide Level 28mmol/L (21-32) Anion Gap 8 (6-14) Blood Urea Nitrogen 20mg/dL (8-26) Creatinine 1.6mg/dL (0.7-1.3) Estimated GFR (Cockcroft-Gault) 46.6 Glucose Level 85mg/dL (70-99) Calcium Level 8.6mg/dL (8.5-10.1) Review of Systems Review of Systems Complaining of Fatigue Complaining of SOA with significant exertion- but improved since admission All other ROS Negative Assessment and Plan Assessmemt and Plan Problems Medical Problems: (1) Chest pain Status: Acute (2) CHF exacerbation Status: Acute 1. CHF 2. A fib 3. CAD 4. HTN 5. HLD 6. Morbid obesity 7. Hypoglycemia 8. Tobaccoism 9. Sleep apnea 10. Venous insufficiency Plan: - Continue Care per Regular floor protocol - Cardiology Consulted- appreciate recommendations - Continue home and IV diuretics - 2 day MPI Completed- showed Ejection Fraction estimated at 20-25%; severe global hypokinesis of the left ventricle - Fluid Restriction - Await further recommendations - Pulmonology Consulted- appreciate recommendations - CXR in AM to follow-up - Discussed importance of CPAP use - OK with home in AM - Continue home meds at this time - Repeat labs in AM - Repeat CXR in AM per pulm - PT/OT to eval and treat - Disposition: Discharge in AM if ok with Cardio Problems: Comment Review of Relevant I have reviewed the following items qian (where applicable) has been applied. Labs Laboratory Tests Test 05/08/16 15:40 05/09/16 05:00 05/10/16 05:45 Troponin I Quantitative 0.024ng/mL (0.000-0.055) White Blood Count 4.5x10^3/uL (4.0-11.0) 6.1x10^3/uL (4.0-11.0) Red Blood Count 4.37x10^6/uL (4.30-5.70) 4.36x10^6/uL (4.30-5.70) Hemoglobin 11.2g/dL (13.0-17.5) 11.2g/dL (13.0-17.5) Hematocrit 35.9% (39.0-53.0) 35.7% (39.0-53.0) Mean Corpuscular Volume 82fL (79-100) 82fL (79-100) Mean Corpuscular Hemoglobin 26pg (25-35) 26pg (25-35) Mean Corpuscular Hemoglobin Concent 31g/dL (31-37) 31g/dL (31-37) Red Cell Distribution Width 18.8% (11.5-14.5) 18.6% (11.5-14.5) Platelet Count 91x10^3/uL (140-400) 109x10^3/uL (140-400) Neutrophils (%) (Auto) 68% (31-73) 66% (31-73) Lymphocytes (%) (Auto) 20% (24-48) 20% (24-48) Monocytes (%) (Auto) 11% (0-9) 13% (0-9) Eosinophils (%) (Auto) 1% (0-3) 1% (0-3) Basophils (%) (Auto) 1% (0-3) 1% (0-3) Neutrophils # (Auto) 3.0x10^3uL (1.8-7.7) 4.0x10^3uL (1.8-7.7) Lymphocytes # (Auto) 0.9x10^3/uL (1.0-4.8) 1.2x10^3/uL (1.0-4.8) Monocytes # (Auto) 0.5x10^3/uL (0.0-1.1) 0.8x10^3/uL (0.0-1.1) Eosinophils # (Auto) 0.0x10^3/uL (0.0-0.7) 0.1x10^3/uL (0.0-0.7) Basophils # (Auto) 0.0x10^3/uL (0.0-0.2) 0.0x10^3/uL (0.0-0.2) Sodium Level 141mmol/L (136-145) 138mmol/L (136-145) Potassium Level 4.0mmol/L (3.5-5.1) 3.9mmol/L (3.5-5.1) Chloride Level 104mmol/L (98-107) 102mmol/L (98-107) Carbon Dioxide Level 28mmol/L (21-32) 28mmol/L (21-32) Anion Gap 9 (6-14) 8 (6-14) Blood Urea Nitrogen 15mg/dL (8-26) 20mg/dL (8-26) Creatinine 1.2mg/dL (0.7-1.3) 1.6mg/dL (0.7-1.3) Estimated GFR (Cockcroft-Gault) 64.9 46.6 Glucose Level 64mg/dL (70-99) 85mg/dL (70-99) Calcium Level 9.0mg/dL (8.5-10.1) 8.6mg/dL (8.5-10.1) Laboratory Tests Test 05/10/16 05:45 White Blood Count 6.1x10^3/uL (4.0-11.0) Red Blood Count 4.36x10^6/uL (4.30-5.70) Hemoglobin 11.2g/dL (13.0-17.5) Hematocrit 35.7% (39.0-53.0) Mean Corpuscular Volume 82fL (79-100) Mean Corpuscular Hemoglobin 26pg (25-35) Mean Corpuscular Hemoglobin Concent 31g/dL (31-37) Red Cell Distribution Width 18.6% (11.5-14.5) Platelet Count 109x10^3/uL (140-400) Neutrophils (%) (Auto) 66% (31-73) Lymphocytes (%) (Auto) 20% (24-48) Monocytes (%) (Auto) 13% (0-9) Eosinophils (%) (Auto) 1% (0-3) Basophils (%) (Auto) 1% (0-3) Neutrophils # (Auto) 4.0x10^3uL (1.8-7.7) Lymphocytes # (Auto) 1.2x10^3/uL (1.0-4.8) Monocytes # (Auto) 0.8x10^3/uL (0.0-1.1) Eosinophils # (Auto) 0.1x10^3/uL (0.0-0.7) Basophils # (Auto) 0.0x10^3/uL (0.0-0.2) Sodium Level 138mmol/L (136-145) Potassium Level 3.9mmol/L (3.5-5.1) Chloride Level 102mmol/L (98-107) Carbon Dioxide Level 28mmol/L (21-32) Anion Gap 8 (6-14) Blood Urea Nitrogen 20mg/dL (8-26) Creatinine 1.6mg/dL (0.7-1.3) Estimated GFR (Cockcroft-Gault) 46.6 Glucose Level 85mg/dL (70-99) Calcium Level 8.6mg/dL (8.5-10.1) Medications Current Medications Aspirin 325 mg 325 mg 1X ONCE PO Last administered on 05/08/16 03:32; Start 05/08/16 at 03:30; Stop 05/08/16 at 03:31; Status DC Nitroglycerin/ Dextrose (Nitroglycerin Drip) 250 ml @ 0 mls/hr 1X ONCE IV ; Start 05/08/16 at 03:30; Stop 05/08/16 at 03:31; Status DC Morphine Sulfate 4 mg 1X ONCE IV Last administered on 05/08/16 04:00; Start 05/08/16 at 04:00; Stop 05/08/16 at 04:01; Status DC Ondansetron HCl (Zofran) 4 mg PRN Q8HRS PRN IV NAUSEA/VOMITING; Start 05/08/16 at 04:00; Stop 05/09/16 at 04:00; Status DC Morphine Sulfate 4 mg PRN Q2HR PRN IV PAIN Last administered on 05/09/16 01:12 ; Start 05/08/16 at 04:00; Stop 05/09/16 at 04:00; Status DC Acetaminophen (Tylenol) 650 mg PRN Q4HRS PRN PO FEVER; Start 05/08/16 at 04:00 ; Stop 05/09/16 at 04:00; Status DC Furosemide (Lasix) 40 mg 1X ONCE IVP Last administered on 05/08/16 04:23; Start 05/08/16 at 04:15; Stop 05/08/16 at 04:59; Status DC Cyclobenzaprine HCl (Flexeril) 10 mg PRN Q8HRS PRN PO MUSCLE SPASMS Last administered on 05/10/16 04:34; Start 05/08/16 at 08:15 Furosemide (Lasix) 40 mg BID94 IVP Last administered on 05/10/16 09:30; Start 05/08/16 at 16:00 Aspirin (Ecotrin) 81 mg DAILYWBKFT PO Last administered on 05/10/16 09:29; Start 05/08/16 at 11:00 EZETIMIBE (Zetia) 10 mg HS PO Last administered on 05/09/16 21:11; Start 05/08 at 21:00 Isosorbide Mononitrate (Imdur) 60 mg DAILY PO Last administered on 05/10/16 09 :30; Start 05/08/16 at 11:00 Lisinopril (Prinivil) 10 mg DAILYWLUN PO Last administered on 05/09/16 10:13; Start 05/08/16 at 12:00 Fish Oil (Fish Oil) 1,000 mg DAILY PO Last administered on 05/10/16 09:30; Start 05/08/16 at 11:00 Carvedilol (Coreg) 25 mg BIDWMEALS PO Last administered on 05/10/16 09:31; Start 05/08/16 at 11:00 Pantoprazole Sodium (Protonix) 40 mg DAILYAC PO Last administered on 05/10/16 09:29; Start 05/08/16 at 11:00 Atorvastatin Calcium (Lipitor) 80 mg QHS PO Last administered on 05/09/16 21: 11; Start 05/08/16 at 21:00 Sulfur Hexafluoride Microspheres ([place]umason) 25 mg STK-MED ONCE IVP ; Start at 11:05; Stop 05/08/16 at 11:06; Status DC Diazepam (Valium) 2 mg Q8HRS PRN PO ANXIETY Last administered on 05/10/16 09: 42; Start 05/08/16 at 12:15 Niacin (Slo-Niacin) 500 mg QHS PO Last administered on 05/09/16 21:11; Start 05/08/16 at 21:00 Fluticasone Propionate (Flonase) 2 spray DAILY NS Last administered on 09:31; Start 05/08/16 at 13:00 Oxycodone HCl (Oxycontin) 80 mg QID PO ; Start 05/08/16 at 13:00; Stop 05/08/16 at 14:07; Status DC Aspirin (Ecotrin) 81 mg DAILYWBKFT PO ; Start 05/09/16 at 08:00; Status UNV Sulfur Hexafluoride Microspheres (Lumason) 25 mg 1X ONCE IVP ; Start 05/08/16 at 14:00; Stop 05/08/16 at 14:04; Status DC Oxycodone HCl (Oxycontin) 30 mg QID PO Last administered on 05/09/16 10:12; Start 05/08/16 at 14:00; Stop 05/09/16 at 18:26; Status DC Regadenoson (Lexiscan) 0.4 mg 1X ONCE IV Last administered on 05/09/16 09:28 ; Start 05/09/16 at 10:00; Stop 05/09/16 at 10:01; Status DC Oxycodone HCl (Oxycontin) 50 mg 1X ONCE PO Last administered on 05/09/16 11: 29; Start 05/09/16 at 11:15; Stop 05/09/16 at 11:16; Status DC Oxycodone HCl (Roxicodone) 20 mg PRN QID PRN PO PAIN Last administered on 15:29; Start 05/09/16 at 11:15; Stop 05/09/16 at 19:02; Status DC Oxycodone HCl (Oxycontin) 80 mg Q6HRS PO Last administered on 05/10/16 06:07; Start 05/09/16 at 18:00 Nystatin (Nystop) 1 katty BID TP Last administered on 05/10/16 09:29; Start at 18:00 Oxycodone HCl (Roxicodone) 20 mg PRN QID PRN PO PAIN Last administered on 04:36; Start 05/09/16 at 19:02 Active Scripts Active Reported Fish Oil 1,000 Mg Capsule ([place]-3 Fatty Acids/Fish Oil) 1 Each Capsule 1 Each PO DAILY [Ntroglycerin [place]] PRN PRN Lisinopril 10 Mg Tablet 1 Tab PO DAILYWLUN Isosorbide Mononitrate Er (Isosorbide Mononitrate) 60 Mg Tab.er.24h 1 Tab PO DAILY Crestor (Rosuvastatin Calcium) 40 Mg Tablet 1 Tab PO QHS Furosemide 40 Mg Tablet 1 Tab PO BID Aspir 81 (Aspirin) 81 Mg Tablet.dr 1 Tab PO DAILY Zetia (Ezetimibe) 10 Mg Tablet 10 Mg PO HS Flonase Allergy Relief (Fluticasone Propionate) 9.9 Ml [place].susp 2 Sprays NS DAILY PRN Opana (Oxymorphone Hcl) 10 Mg Tablet 10 Mg PO QID PRN Opana Er (Oxymorphone Hcl) 40 Mg Tab.er.12h 40 Mg PO QID Niaspan (Niacin) 500 Mg Tab.er.24h 1 Tab PO QHS Esomeprazole Capsule (Esomeprazole Strontium) 40 Mg Capsule.dr 40 Mg PO DAILYAC Diazepam 2 Mg Tablet 2 Mg PO PRN Q4-6HRS PRN Coreg (Carvedilol) 25 Mg Tablet 1 Tab PO BID Vitals/I & O Vital Sign - Last 24 Hours 05/09/16 05/09/16 05/09/16 05/09/16 15:19 15:29 16:29 17:00 Temp 97.6 97.6 Pulse 70 61 Resp 22 18 18 B/P 133/49 95/37 Pulse Ox 95 O2 Delivery Room Air Room Air Room Air 05/09/16 05/09/16 05/09/16 05/09/16 18:48 19:00 20:00 20:00 Temp 97.8 97.8 Pulse 66 Resp 18 24 B/P 114/53 Pulse Ox 92 O2 Delivery Room Air Room Air Room Air Room Air 05/09/16 05/09/16 05/09/16 05/10/16 20:00 23:12 23:47 03:12 Temp 97.7 97.7 Pulse 66 Resp 24 B/P 136/70 Pulse Ox 95 O2 Delivery Room Air Room Air Room Air Room Air 05/10/16 05/10/16 05/10/16 05/10/16 03:30 04:36 06:00 06:07 Temp 98.4 98.4 Pulse 79 Resp 22 B/P 98/58 Pulse Ox 94 O2 Delivery Room Air Room Air Room Air Room Air 05/10/16 05/10/16 05/10/16 05/10/16 07:49 09:30 09:31 09:48 Temp 98.2 98.2 Pulse 83 83 83 98 Resp 24 B/P 118/44 118/44 118/44 123/47 Pulse Ox 93 O2 Delivery Room Air 05/10/16 11:07 Temp 97.8 97.8 Pulse 88 Resp 23 B/P 127/36 Pulse Ox 92 O2 Delivery Room Air Intake and Output 05/09/16 05/09/16 05/10/16 15:00 23:00 07:00 Intake Total 340 ml Output Total 750 ml 300 ml Balance -750 ml 40 ml CASTEMPERATRIZNIAL K III DO May 10, 2016 12:59
--- NOTE | 2016-05-10 17:27 | PDOC ---
PROGRESS NOTES Subjective Subjective Dyspnea improved. Denied any chest painq Objective Objective Vital Signs Date Time Temp Pulse Resp B/P Pulse Ox O2 Delivery O2 Flow Rate FiO2 05/10/16 16:35 84 118/55 05/10/16 15:14 98.4 24 92 Room Air 98.4 Intake and Output 05/10/16 07:00 Intake Total 340 ml Output Total 1050 ml Balance -710 ml Intake Oral 340 ml Output Urine Total 1050 ml # Voids 3 # Bowel Movements 2 Physical Exam Abdomen: Soft, No tenderness, Other (obese) Heart: Normal S1, Normal S2, Other (irregular rate) Extremities: No cyanosis, Other (3+ bilateral LE pitting edema; Large Anterior Scar on [place]ez of LLE) General: Alert, Oriented X3, Cooperative, No acute distress HEENT: Atraumatic, Mucous membr. moist/pink Lungs: Other (diffuse faint wheeze) Neuro: Normal speech, Sensation intact Psych/Mental Status: Mental status NL, Mood NL Skin: No breakdown, No significant lesion Assessment Assessment 1. CAD: CABG (x6) 2 yrs ago, presenting with chest pain with atypical features. Lexiscan MPI did not show any significant ischemia. Patient presently chest pain free. Continue current medical regimen. 2. Acute on chronic systolic CHF: improved with diuresis. 3. Ischemic Cardiomyopathy: s/p AICD ([place]) - no recent ICD shock therapies 4. PAFIB: presently sinus 5. HTN: controlled 6. HLP: statins Possible DC home in am Plan Plan of Care Problems Medical Problems: (1) Chest pain Status: Acute (2) CHF exacerbation Status: Acute Comment Review of Relevant I have reviewed the following items qian (where applicable) has been applied. Labs Laboratory Tests Test 05/10/16 05:45 White Blood Count 6.1x10^3/uL (4.0-11.0) Red Blood Count 4.36x10^6/uL (4.30-5.70) Hemoglobin 11.2g/dL (13.0-17.5) Hematocrit 35.7% (39.0-53.0) Mean Corpuscular Volume 82fL (79-100) Mean Corpuscular Hemoglobin 26pg (25-35) Mean Corpuscular Hemoglobin Concent 31g/dL (31-37) Red Cell Distribution Width 18.6% (11.5-14.5) Platelet Count 109x10^3/uL (140-400) Neutrophils (%) (Auto) 66% (31-73) Lymphocytes (%) (Auto) 20% (24-48) Monocytes (%) (Auto) 13% (0-9) Eosinophils (%) (Auto) 1% (0-3) Basophils (%) (Auto) 1% (0-3) Neutrophils # (Auto) 4.0x10^3uL (1.8-7.7) Lymphocytes # (Auto) 1.2x10^3/uL (1.0-4.8) Monocytes # (Auto) 0.8x10^3/uL (0.0-1.1) Eosinophils # (Auto) 0.1x10^3/uL (0.0-0.7) Basophils # (Auto) 0.0x10^3/uL (0.0-0.2) Sodium Level 138mmol/L (136-145) Potassium Level 3.9mmol/L (3.5-5.1) Chloride Level 102mmol/L (98-107) Carbon Dioxide Level 28mmol/L (21-32) Anion Gap 8 (6-14) Blood Urea Nitrogen 20mg/dL (8-26) Creatinine 1.6mg/dL (0.7-1.3) Estimated GFR (Cockcroft-Gault) 46.6 Glucose Level 85mg/dL (70-99) Calcium Level 8.6mg/dL (8.5-10.1) Medications Current Medications Nystatin (Nystop) 1 katty BID TP Last administered on 05/10/16 09:29; Start at 18:00 Oxycodone HCl (Oxycontin) 80 mg Q6HRS PO Last administered on 05/10/16 13:32; Start 05/09/16 at 18:00 Oxycodone HCl (Roxicodone) 20 mg PRN QID PRN PO PAIN Last administered on 04:36; Start 05/09/16 at 19:02 Vitals/I & O Vital Sign - Last 24 Hours 05/09/16 05/09/16 05/09/16 05/09/16 18:48 19:00 20:00 20:00 Temp 97.8 97.8 Pulse 66 Resp 18 24 B/P 114/53 Pulse Ox 92 O2 Delivery Room Air Room Air Room Air Room Air 05/09/16 05/09/16 05/09/16 05/10/16 20:00 23:12 23:47 03:30 Temp 97.7 98.4 97.7 98.4 Pulse 66 79 Resp 24 22 B/P 136/70 98/58 Pulse Ox 95 94 O2 Delivery Room Air Room Air Room Air Room Air 05/10/16 05/10/16 05/10/16 05/10/16 04:36 06:00 06:07 07:49 Temp 98.2 98.2 Pulse 83 Resp 24 B/P 118/44 Pulse Ox 93 O2 Delivery Room Air Room Air Room Air Room Air 05/10/16 05/10/16 05/10/16 05/10/16 08:00 09:30 09:31 09:48 Pulse 83 83 98 B/P 118/44 118/44 123/47 O2 Delivery Room Air 05/10/16 05/10/16 05/10/16 05/10/16 10:07 11:07 12:00 13:32 Temp 97.8 97.8 Pulse 88 81 Resp 20 23 20 B/P 127/36 118/76 Pulse Ox 92 O2 Delivery Room Air Room Air Room Air 05/10/16 05/10/16 15:14 16:35 Temp 98.4 98.4 Pulse 84 84 Resp 24 B/P 118/55 118/55 Pulse Ox 92 O2 Delivery Room Air Intake and Output 05/09/16 05/09/16 05/10/16 15:00 23:00 07:00 Intake Total 340 ml Output Total 750 ml 300 ml Balance -750 ml 40 ml ADITYA MELARA MD May 10, 2016 17:26
[2016-05-10] MEDS: EZETIMIBE 10 MG TABLET PO SCH (21:34)
[2016-05-10] MEDS: NIACIN ER 500 MG TABLET.ER PO SCH (21:34)
[2016-05-10] MEDS: ATORVASTATIN CALCIUM 40 MG TABLET. PO SCH (21:34)
[2016-05-11] MEDS: OXYCODONE ER 40 MG TAB.ER.12H. PO SCH ×3 (00:54→11:47)
[2016-05-11 03:49] VITALS: BP 99/47
[2016-05-11] MEDS: OXYCODONE IR 5 MG TABLET. PO PRN (04:04)
[2016-05-11 04:59] LABS: CALCIUM 8.7 mg/dL (8.5-10.1); CREATININE 1.7 mg/dL (0.7-1.3); GFR 43.4; POTASSIUM 3.8 mmol/L (3.5-5.1)
[2016-05-11 05:45] LABS: BASO % 1 % (0-3); EOS % 1 % (0-3); HEMOGLOBIN 11.1 g/dL (13.0-17.5); LYMPH # 1.2 x10^3/uL (1.0-4.8); LYMPH % 24 % (24-48); MEAN CORPUSCULAR HEMOGLOBIN 26 pg (25-35); MEAN CORPUSCULAR HGB CONC 32 g/dL (31-37); MEAN CORPUSCULAR VOLUME 81 fL (79-100); MONO % 11 % (0-9); NEUT % 63 % (31-73); PLATELET COUNT 100 x10^3/uL (140-400); RED BLOOD COUNT 4.34 x10^6/uL (4.30-5.70); RED CELL DISTRIBUTION WIDTH 18.4 % (11.5-14.5); WHITE BLOOD COUNT 5.2 x10^3/uL (4.0-11.0)
[2016-05-11 06:27] VITALS: BP 128/60
--- NOTE | 2016-05-11 08:18 | RAD ---
Portable chest, 05/11/2016: History: Congestive heart failure Comparison is made to a study from 05/08/2016. There as been a previous median sternotomy. A left-sided transvenous pacing device is in place with 2 leads extending into the right heart. The heart is enlarged. The pulmonary vascularity now appears to be within normal limits. No pulmonary infiltrates are seen. There is no evidence of pleural fluid. IMPRESSION: 1. Cardiomegaly. 2. No acute infiltrates.
[2016-05-11] MEDS: ASPIRIN ENTERIC COATED 81 MG TABLET.DR. PO SCH (08:57)
[2016-05-11] MEDS: OMEGA-3 FATTY ACIDS/FISH OIL 1,000 MG CAPSULE. PO SCH (08:57)
[2016-05-11] MEDS: FLUTICASONE 50MCG/NASAL SPRAY 16GM BOTTLE. NS SCH (09:00)
[2016-05-11] MEDS: FUROSEMIDE 40 MG/4 ML VIAL IVP SCH (09:00)
[2016-05-11] MEDS: CARVEDILOL 12.5 MG TABLET PO SCH (09:01)
[2016-05-11] MEDS: PANTOPRAZOLE 40 MG TABLET. PO SCH (09:01)
[2016-05-11] MEDS: ISOSORBIDE MONONITRATE ER 60 MG TAB.ER.24H PO SCH (09:02)
[2016-05-11] MEDS: NYSTATIN TOPICAL POWDER 15GM BOTTLE. TP SCH (09:03)
[2016-05-11] MEDS ORDERED: INFLUENZA VAX SCREEN BY RX. MC PRN (09:15)
[2016-05-11] MEDS ORDERED: FLU VACC QUAD 2016-17 (36MOS+)/PF 0.5 ML SYRINGE. VAX IM ONE (10:00)
[2016-05-11 11:14] VITALS: BP 107/38
--- NOTE | 2016-05-11 11:14 | PDOC ---
PROGRESS NOTES Chief Complaint Chief Complaint CC: Chest pain, SOB 1. CAD s/p CABG (x6) 2 yrs ago 2. Acute on chronic CHF - EF 20% 3. Chronic pain 4. Hyperlipidemia 5. HTN 6. Morbid obesity 7. Tobaccoism > 20 years 8. PAFIB 9. Suspect CKD3 10. VALERY History of Present Illness History of Present Illness Pt doing well this morning on arrival to his room. He denies any CP or SOA at this time. He states that his weakness is improving and he is hungry and eating well. Wondering about possible discharge today. Vitals Vitals Vital Signs Date Time Temp Pulse Resp B/P Pulse Ox O2 Delivery O2 Flow Rate FiO2 05/11/16 09:02 92 130/46 05/11/16 08:00 Room Air 05/11/16 06:38 20 92 05/11/16 06:27 98.5 98.5 Physical Exam General: Alert, Oriented X3, Cooperative, No acute distress Heart: Normal S1, Normal S2, Other (irregular rate) Lungs: Clear, Other (no wheezes or crackles; CTAB) Abdomen: Soft, No tenderness, No masses, Other (obese) Extremities: No cyanosis, Other ( Large Anterior Scar on cortez of LLE) Skin: No breakdown, No significant lesion Labs LABS Laboratory Tests Test 05/11/16 03:00 05/11/16 03:55 White Blood Count 5.2x10^3/uL (4.0-11.0) Red Blood Count 4.34x10^6/uL (4.30-5.70) Hemoglobin 11.1g/dL (13.0-17.5) Hematocrit 35.0% (39.0-53.0) Mean Corpuscular Volume 81fL (79-100) Mean Corpuscular Hemoglobin 26pg (25-35) Mean Corpuscular Hemoglobin Concent 32g/dL (31-37) Red Cell Distribution Width 18.4% (11.5-14.5) Platelet Count 100x10^3/uL (140-400) Neutrophils (%) (Auto) 63% (31-73) Lymphocytes (%) (Auto) 24% (24-48) Monocytes (%) (Auto) 11% (0-9) Eosinophils (%) (Auto) 1% (0-3) Basophils (%) (Auto) 1% (0-3) Neutrophils # (Auto) 3.2x10^3uL (1.8-7.7) Lymphocytes # (Auto) 1.2x10^3/uL (1.0-4.8) Monocytes # (Auto) 0.6x10^3/uL (0.0-1.1) Eosinophils # (Auto) 0.1x10^3/uL (0.0-0.7) Basophils # (Auto) 0.0x10^3/uL (0.0-0.2) Sodium Level 139mmol/L (136-145) Potassium Level 3.8mmol/L (3.5-5.1) Chloride Level 100mmol/L (98-107) Carbon Dioxide Level 29mmol/L (21-32) Anion Gap 10 (6-14) Blood Urea Nitrogen 20mg/dL (8-26) Creatinine 1.7mg/dL (0.7-1.3) Estimated GFR (Cockcroft-Gault) 43.4 Glucose Level 115mg/dL (70-99) Calcium Level 8.7mg/dL (8.5-10.1) Review of Systems Review of Systems Complaining of feeling tired Complaining of hunger All other ROS negative Assessment and Plan Assessmemt and Plan Problems Medical Problems: (1) Chest pain Status: Acute (2) CHF exacerbation Status: Acute 1. CHF 2. A fib 3. CAD 4. HTN 5. HLD 6. Morbid obesity 7. Hypoglycemia 8. Tobaccoism 9. Sleep apnea 10. Venous insufficiency Plan: - Care continued per Regular floor protocol - Cardiology Consulted- appreciate recommendations - Continue Diuresis - 2 day MPI Completed- showed Ejection Fraction estimated at 20-25%; severe global hypokinesis of the left ventricle; did not show any significant ischemia - Continue Fluid Restriction as instructed - Pulmonology Consulted- appreciate recommendations - CXR- completed - Discussed importance of CPAP use on discharge - Repeat CXR: heart enlarged (Cardiomegaly); The pulmonary vascularity now appears to be within normal limits; No pulmonary infiltrates are seen- Compared to 05/08/2016 - Continue home meds upon discharge - Troponins: Negative - Lipid Panel: WNL - Disposition: Discharge if ok with pulmonary Problems: Comment Review of Relevant I have reviewed the following items qian (where applicable) has been applied. Labs Laboratory Tests Test 05/10/16 05:45 05/11/16 03:00 05/11/16 03:55 White Blood Count 6.1x10^3/uL (4.0-11.0) 5.2x10^3/uL (4.0-11.0) Red Blood Count 4.36x10^6/uL (4.30-5.70) 4.34x10^6/uL (4.30-5.70) Hemoglobin 11.2g/dL (13.0-17.5) 11.1g/dL (13.0-17.5) Hematocrit 35.7% (39.0-53.0) 35.0% (39.0-53.0) Mean Corpuscular Volume 82fL (79-100) 81fL (79-100) Mean Corpuscular Hemoglobin 26pg (25-35) 26pg (25-35) Mean Corpuscular Hemoglobin Concent 31g/dL (31-37) 32g/dL (31-37) Red Cell Distribution Width 18.6% (11.5-14.5) 18.4% (11.5-14.5) Platelet Count 109x10^3/uL (140-400) 100x10^3/uL (140-400) Neutrophils (%) (Auto) 66% (31-73) 63% (31-73) Lymphocytes (%) (Auto) 20% (24-48) 24% (24-48) Monocytes (%) (Auto) 13% (0-9) 11% (0-9) Eosinophils (%) (Auto) 1% (0-3) 1% (0-3) Basophils (%) (Auto) 1% (0-3) 1% (0-3) Neutrophils # (Auto) 4.0x10^3uL (1.8-7.7) 3.2x10^3uL (1.8-7.7) Lymphocytes # (Auto) 1.2x10^3/uL (1.0-4.8) 1.2x10^3/uL (1.0-4.8) Monocytes # (Auto) 0.8x10^3/uL (0.0-1.1) 0.6x10^3/uL (0.0-1.1) Eosinophils # (Auto) 0.1x10^3/uL (0.0-0.7) 0.1x10^3/uL (0.0-0.7) Basophils # (Auto) 0.0x10^3/uL (0.0-0.2) 0.0x10^3/uL (0.0-0.2) Sodium Level 138mmol/L (136-145) 139mmol/L (136-145) Potassium Level 3.9mmol/L (3.5-5.1) 3.8mmol/L (3.5-5.1) Chloride Level 102mmol/L (98-107) 100mmol/L (98-107) Carbon Dioxide Level 28mmol/L (21-32) 29mmol/L (21-32) Anion Gap 8 (6-14) 10 (6-14) Blood Urea Nitrogen 20mg/dL (8-26) 20mg/dL (8-26) Creatinine 1.6mg/dL (0.7-1.3) 1.7mg/dL (0.7-1.3) Estimated GFR (Cockcroft-Gault) 46.6 43.4 Glucose Level 85mg/dL (70-99) 115mg/dL (70-99) Calcium Level 8.6mg/dL (8.5-10.1) 8.7mg/dL (8.5-10.1) Laboratory Tests Test 05/11/16 03:00 05/11/16 03:55 White Blood Count 5.2x10^3/uL (4.0-11.0) Red Blood Count 4.34x10^6/uL (4.30-5.70) Hemoglobin 11.1g/dL (13.0-17.5) Hematocrit 35.0% (39.0-53.0) Mean Corpuscular Volume 81fL (79-100) Mean Corpuscular Hemoglobin 26pg (25-35) Mean Corpuscular Hemoglobin Concent 32g/dL (31-37) Red Cell Distribution Width 18.4% (11.5-14.5) Platelet Count 100x10^3/uL (140-400) Neutrophils (%) (Auto) 63% (31-73) Lymphocytes (%) (Auto) 24% (24-48) Monocytes (%) (Auto) 11% (0-9) Eosinophils (%) (Auto) 1% (0-3) Basophils (%) (Auto) 1% (0-3) Neutrophils # (Auto) 3.2x10^3uL (1.8-7.7) Lymphocytes # (Auto) 1.2x10^3/uL (1.0-4.8) Monocytes # (Auto) 0.6x10^3/uL (0.0-1.1) Eosinophils # (Auto) 0.1x10^3/uL (0.0-0.7) Basophils # (Auto) 0.0x10^3/uL (0.0-0.2) Sodium Level 139mmol/L (136-145) Potassium Level 3.8mmol/L (3.5-5.1) Chloride Level 100mmol/L (98-107) Carbon Dioxide Level 29mmol/L (21-32) Anion Gap 10 (6-14) Blood Urea Nitrogen 20mg/dL (8-26) Creatinine 1.7mg/dL (0.7-1.3) Estimated GFR (Cockcroft-Gault) 43.4 Glucose Level 115mg/dL (70-99) Calcium Level 8.7mg/dL (8.5-10.1) Medications Current Medications Aspirin 325 mg 325 mg 1X ONCE PO Last administered on 05/08/16 03:32; Start 05/08/16 at 03:30; Stop 05/08/16 at 03:31; Status DC Nitroglycerin/ Dextrose (Nitroglycerin Drip) 250 ml @ 0 mls/hr 1X ONCE IV ; Start 05/08/16 at 03:30; Stop 05/08/16 at 03:31; Status DC Morphine Sulfate 4 mg 1X ONCE IV Last administered on 05/08/16 04:00; Start 05/08/16 at 04:00; Stop 05/08/16 at 04:01; Status DC Ondansetron HCl (Zofran) 4 mg PRN Q8HRS PRN IV NAUSEA/VOMITING; Start 05/08/16 at 04:00; Stop 05/09/16 at 04:00; Status DC Morphine Sulfate 4 mg PRN Q2HR PRN IV PAIN Last administered on 05/09/16 01:12 ; Start 05/08/16 at 04:00; Stop 05/09/16 at 04:00; Status DC Acetaminophen (Tylenol) 650 mg PRN Q4HRS PRN PO FEVER; Start 05/08/16 at 04:00 ; Stop 05/09/16 at 04:00; Status DC Furosemide (Lasix) 40 mg 1X ONCE IVP Last administered on 05/08/16 04:23; Start 05/08/16 at 04:15; Stop 05/08/16 at 04:59; Status DC Cyclobenzaprine HCl (Flexeril) 10 mg PRN Q8HRS PRN PO MUSCLE SPASMS Last administered on 05/10/16 21:34; Start 05/08/16 at 08:15 Furosemide (Lasix) 40 mg BID94 IVP Last administered on 05/11/16 09:00; Start 05/08/16 at 16:00 Aspirin (Ecotrin) 81 mg DAILYWBKFT PO Last administered on 05/11/16 08:57; Start 05/08/16 at 11:00 EZETIMIBE (Zetia) 10 mg HS PO Last administered on 05/10/16 21:34; Start 05/08 at 21:00 Isosorbide Mononitrate (Imdur) 60 mg DAILY PO Last administered on 05/11/16 09 :02; Start 05/08/16 at 11:00 Lisinopril (Prinivil) 10 mg DAILYWLUN PO Last administered on 05/09/16 10:13; Start 05/08/16 at 12:00 Fish Oil (Fish Oil) 1,000 mg DAILY PO Last administered on 05/11/16 08:57; Start 05/08/16 at 11:00 Carvedilol (Coreg) 25 mg BIDWMEALS PO Last administered on 05/11/16 09:01; Start 05/08/16 at 11:00 Pantoprazole Sodium (Protonix) 40 mg DAILYAC PO Last administered on 05/11/16 09:01; Start 05/08/16 at 11:00 Atorvastatin Calcium (Lipitor) 80 mg QHS PO Last administered on 05/10/16 21: 34; Start 05/08/16 at 21:00 Sulfur Hexafluoride Microspheres (Lumason) 25 mg STK-MED ONCE IVP ; Start at 11:05; Stop 05/08/16 at 11:06; Status DC Diazepam (Valium) 2 mg Q8HRS PRN PO ANXIETY Last administered on 05/10/16 16: 35; Start 05/08/16 at 12:15 Niacin (Slo-Niacin) 500 mg QHS PO Last administered on 05/10/16 21:34; Start 05/08/16 at 21:00 Fluticasone Propionate (Flonase) 2 spray DAILY NS Last administered on 09:00; Start 05/08/16 at 13:00 Oxycodone HCl (Oxycontin) 80 mg QID PO ; Start 05/08/16 at 13:00; Stop 05/08/16 at 14:07; Status DC Aspirin (Ecotrin) 81 mg DAILYWBKFT PO ; Start 05/09/16 at 08:00; Status UNV Sulfur Hexafluoride Microspheres (Lumason) 25 mg 1X ONCE IVP ; Start 05/08/16 at 14:00; Stop 05/08/16 at 14:04; Status DC Oxycodone HCl (Oxycontin) 30 mg QID PO Last administered on 05/09/16 10:12; Start 05/08/16 at 14:00; Stop 05/09/16 at 18:26; Status DC Regadenoson (Lexiscan) 0.4 mg 1X ONCE IV Last administered on 05/09/16 09:28 ; Start 05/09/16 at 10:00; Stop 05/09/16 at 10:01; Status DC Oxycodone HCl (Oxycontin) 50 mg 1X ONCE PO Last administered on 05/09/16 11: 29; Start 05/09/16 at 11:15; Stop 05/09/16 at 11:16; Status DC Oxycodone HCl (Roxicodone) 20 mg PRN QID PRN PO PAIN Last administered on 15:29; Start 05/09/16 at 11:15; Stop 05/09/16 at 19:02; Status DC Oxycodone HCl (Oxycontin) 80 mg Q6HRS PO Last administered on 05/11/16 06:38; Start 05/09/16 at 18:00 Nystatin (Nystop) 1 katty BID TP Last administered on 05/11/16 09:03; Start at 18:00 Oxycodone HCl (Roxicodone) 20 mg PRN QID PRN PO PAIN Last administered on 04:04; Start 05/09/16 at 19:02 Sulfur Hexafluoride Microspheres (Lumason) 25 mg STK-MED ONCE IVP ; Start at 11:00; Stop 05/11/16 at 08:54; Status DC Info (Do NOT chart on this placeholder) 1 each PRN 1X PRN MC SEE COMMENTS; Start 05/11/16 at 09:15; Status UNV Influenza Virus Vaccine Quadrival (Fluarix Quad [id number] Syringe) 0.5 ml ONCE ONCE VAX IM ; Start 05/11/16 at 10:00; Stop 05/11/16 at 10:01; Status DC Active Scripts Active Reported Fish Oil 1,000 Mg Capsule ([place]-3 Fatty Acids/Fish Oil) 1 Each Capsule 1 Each PO DAILY [Ntroglycerin Verdi] PRN PRN Lisinopril 10 Mg Tablet 1 Tab PO DAILYWLUN Isosorbide Mononitrate Er (Isosorbide Mononitrate) 60 Mg Tab.er.24h 1 Tab PO DAILY Crestor (Rosuvastatin Calcium) 40 Mg Tablet 1 Tab PO QHS Furosemide 40 Mg Tablet 1 Tab PO BID Aspir 81 (Aspirin) 81 Mg Tablet.dr 1 Tab PO DAILY Zetia (Ezetimibe) 10 Mg Tablet 10 Mg PO HS Flonase Allergy Relief (Fluticasone Propionate) 9.9 Ml Verdi.susp 2 Sprays NS DAILY PRN Opana (Oxymorphone Hcl) 10 Mg Tablet 10 Mg PO QID PRN Opana Er (Oxymorphone Hcl) 40 Mg Tab.er.12h 40 Mg PO QID Niaspan (Niacin) 500 Mg Tab.er.24h 1 Tab PO QHS Esomeprazole Capsule (Esomeprazole Strontium) 40 Mg Capsule.dr 40 Mg PO DAILYAC Diazepam 2 Mg Tablet 2 Mg PO PRN Q4-6HRS PRN Coreg (Carvedilol) 25 Mg Tablet 1 Tab PO BID Vitals/I & O Vital Sign - Last 24 Hours 05/10/16 05/10/16 05/10/16 05/10/16 12:00 13:32 15:14 16:35 Temp 98.4 98.4 Pulse 81 84 84 Resp 20 24 B/P 118/76 118/55 118/55 Pulse Ox 92 O2 Delivery Room Air Room Air 05/10/16 05/10/16 05/10/16 05/10/16 18:31 19:41 20:00 21:36 Temp 98.0 98.0 Pulse 81 Resp 18 18 20 B/P 100/56 Pulse Ox 90 91 O2 Delivery Room Air Room Air Room Air Room Air 05/10/16 05/11/16 05/11/16 05/11/16 22:17 00:54 03:49 04:04 Temp 98.1 97.8 98.1 97.8 Pulse 88 82 Resp 22 20 18 20 B/P 122/66 99/47 Pulse Ox 91 91 94 94 O2 Delivery Room Air Room Air Room Air Room Air 05/11/16 05/11/16 05/11/16 05/11/16 05:00 05:00 06:27 06:38 Temp 98.5 98.5 Pulse 69 Resp 18 18 22 20 B/P 128/60 Pulse Ox 94 94 90 92 O2 Delivery Room Air Room Air Room Air Room Air 05/11/16 05/11/16 05/11/16 08:00 09:01 09:02 Pulse 95 92 B/P 130/46 130/46 O2 Delivery Room Air Intake and Output 05/10/16 05/10/16 05/11/16 15:00 23:00 07:00 Intake Total 550 ml 1040 ml 400 ml Output Total 450 ml 750 ml 550 ml Balance 100 ml 290 ml -150 ml YINNIAL K III DO May 11, 2016 11:14
[2016-05-11 11:50] VITALS: BP 121/56
[2016-05-11] MEDS: LISINOPRIL 10 MG TABLET PO SCH (11:50)
--- NOTE | 2016-05-21 18:12 | DS ---
DATE OF DISCHARGE: 05/11/2016 ADMISSION DIAGNOSIS: Chest pain. DISCHARGE DIAGNOSES: Atypical chest pain, suspect gastroesophageal reflux disease, chronic systolic heart failure with an EF of 20-25%. CONSULTS: Cardiology and Pulmonary Medicine. HOSPITAL COURSE: The patient is a pleasant elderly male presented with acute on chronic systolic and diastolic heart failure and chest pain. He was admitted. We did a stress test which was negative. Serial enzymes were negative. His EF was 20 to 25%. We discharged to home. DISPOSITION: Home. ACTIVITY: As tolerated. DIET: Low sodium. MEDICATIONS: Please see the MRAD. TOTAL TIME: 34 minutes. NIAL Kristi ESQUEDA DO DR: SHAYNA/denver JOB#: [id number] / [id number]
== END 2016-05-11 13:15 | disposition home or self-care (01) | DRG 391 ==
LOC: ER 03:05 → 2 SOUTH 03:43
PROVIDERS: ADMIT Internal Medicine; ATTEND Internal Medicine
DX: K21.9 Gastro-esophageal reflux disease without esophagitis (principal); I50.43 Acute on chronic combined systolic (congestive) and diastolic (congestive) heart failure; I13.0 Hypertensive heart and chronic kidney disease with heart failure and stage 1 through stage 4 chronic kidney disease, or unspecified chronic kidney disease; Z68.43 Body mass index [BMI] 50.0-59.9, adult; E11.649 Type 2 diabetes mellitus with hypoglycemia without coma; E66.01 Morbid (severe) obesity due to excess calories; E78.00 Pure hypercholesterolemia, unspecified; E78.5 Hyperlipidemia, unspecified; F17.200 Nicotine dependence, unspecified, uncomplicated; G47.33 Obstructive sleep apnea (adult) (pediatric); G89.29 Other chronic pain; I25.10 Atherosclerotic heart disease of native coronary artery without angina pectoris; I25.5 Ischemic cardiomyopathy; I45.10 Unspecified right bundle-branch block; I87.2 Venous insufficiency (chronic) (peripheral); Z96.659 Presence of unspecified artificial knee joint; F41.9 Anxiety disorder, unspecified; E11.42 Type 2 diabetes mellitus with diabetic polyneuropathy; M54.5 Low back pain; I48.0 Paroxysmal atrial fibrillation; N18.3 Chronic kidney disease, stage 3 (moderate); Z88.0 Allergy status to penicillin; Z90.49 Acquired absence of other specified parts of digestive tract; Z82.49 Family history of ischemic heart disease and other diseases of the circulatory system; Z87.442 Personal history of urinary calculi; Z91.11 Patient's noncompliance with dietary regimen; Z91.19 Patient's noncompliance with other medical treatment and regimen; Z95.1 Presence of aortocoronary bypass graft; Z95.5 Presence of coronary angioplasty implant and graft; Z95.810 Presence of automatic (implantable) cardiac defibrillator
CPT/HCPCS: 99285; C8929; 36415; 71010; 78452; 80048; 80061; 80076; 83735; 83880; 84443; 84484; 85027; 85610; 93005; 93017; 96374; 96375; 96376; A9500; J1940; J2270; J2785; Q9950

== ENCOUNTER 2016-06-02 20:35 | Inpatient (IN) | payer MEDICARE, MEDICAID ==
[~2016-06-02] VITALS: Ht 180.3 cm; Wt 162.9 kg
[2016-06-02] MEDS ORDERED: MORPHINE SULFATE 10 MG/ML VIAL. ONE (20:48)
[2016-06-02 20:59] LABS: BASO % 1 % (0-3); EOS % 1 % (0-3); HEMATOCRIT 39.4 % (39.0-53.0); HEMOGLOBIN 12.4 g/dL (13.0-17.5); LYMPH # 0.8 x10^3/uL (1.0-4.8); LYMPH % 12 % (24-48); MEAN CORPUSCULAR HEMOGLOBIN 26 pg (25-35); MEAN CORPUSCULAR HGB CONC 32 g/dL (31-37); MEAN CORPUSCULAR VOLUME 82 fL (79-100); MONO % 8 % (0-9); NEUT % 79 % (31-73); PLATELET COUNT 98 x10^3/uL (140-400); RED CELL DISTRIBUTION WIDTH 19.3 % (11.5-14.5); WHITE BLOOD COUNT 6.7 x10^3/uL (4.0-11.0)
[2016-06-02] MEDS ORDERED: NITROGLYCERIN PREMIX 250 ML IV ONE (21:00)
[2016-06-02 21:07] LABS: INR 1.4 (0.8-1.1); PROTHROMBIN TIME PATIENT 16.3 SEC (11.7-14.0)
[2016-06-02 21:09] LABS: CALCIUM 8.7 mg/dL (8.5-10.1); GFR 80.1; POTASSIUM 4.1 mmol/L (3.5-5.1)
[2016-06-02] MEDS ORDERED: ONDANSETRON PF 4 MG/2 ML VIAL. IV ONE (21:30)
[2016-06-02] MEDS ORDERED: MORPHINE SULFATE 10 MG/ML VIAL. IV ONE (21:30)
[2016-06-02 21:33] LABS: BARBITURATES NEG (NEG); BENZODIAZEPINES NEG (NEG); CANNABINOIDS NEG (NEG); COCAINE NEG (NEG); METHADONE NEG (NEG); OPIATES POS (NEG); PHENCYCLIDINE NEG (NEG)
[2016-06-02 21:34] LABS: ETHANOL, URINE NEG (NEG)
--- NOTE | 2016-06-02 21:37 | PHYS DOC ---
Past Medical History Past Medical History: A-Fib, Anxiety, CHF, GERD, High Cholesterol, Hypertension , Kidney Stone, [place] Past Surgical History: Cholecystectomy, Coronary Bypass Surgery, Knee Replacement, Pacemaker, Tonsillectomy, Other Additional Past Surgical Histo: cardiac stents(6), LEFT FEMUR SURGERY, karsten R femur, skin graft, LITHOTRIPSY Additional Information: PT REPORTS HE SMOKES 1/2PPD. Alcohol Use: Rarely Drug Use: None Adult General Chief Complaint Chief Complaint: CHEST PAIN HPI HPI Patient is a 45 year old male who presents by EMS for chest pain and dyspnea that started suddenly around 1200 today. Symptoms are constant, heavy pressure to mid chest, not relieved by nitro at home or by EMS. Did improve but not resolve with morphine by EMS. He notes some recent nausea and diarrhea for the past few days due to drastic decreased to 0 of his chronic narcotic pain meds. States he is taking these for back pain, not chest pain. Denies cough, emesis, bloody or dark stools. Notes chronic edema and does not weight himself at home. Denies palpitations or ICD fire. Review of Systems Review of Systems Constitutional: Denies fever or chills [] Eyes: Denies change in visual acuity, redness, or eye pain [] HENT: Denies nasal congestion or sore throat [] Respiratory: Denies cough [] Cardiovascular: No additional information not addressed in HPI [] GI: Denies abdominal pain, vomiting, bloody stools [] : Denies dysuria or hematuria [] Musculoskeletal: Denies back pain or joint pain [] Integument: Denies rash or skin lesions [] Neurologic: Denies headache, focal weakness or sensory changes [] Endocrine: Denies polyuria or polydipsia [] Current Medications Current Medications Current Medications Medications (Trade) Dose Ordered Sig/Frank Start Time Stop Time Status Last Admin Dose Admin Morphine Sulfate 5 mg 5 mg 1X ONCE 06/02/16 21:30 06/02/16 21:31 DC 06/02/16 20:49 5 MG Nitroglycerin/ Dextrose (Nitroglycerin Drip) 250 ml @ 0 mls/hr 1X ONCE 06/02/16 21:00 06/02/16 21:01 DC 06/02/16 21:10 1.5 MLS/HR Ondansetron HCl (Zofran) 4 mg 1X ONCE 06/02/16 21:30 3/21/17 21:31 DC 06/02/16 21:02 4 MG Allergies Allergies Allergies Coded Allergies Type Severity Reaction Last Updated Verified Penicillins Allergy Intermediate RESPIRATORY DISTRESS,HIVES 05/09/16 Yes Physical Exam Physical Exam Constitutional: Well developed, well nourished, moderate distress, non-toxic appearance. [] HENT: Normocephalic, atraumatic, bilateral external ears normal, oropharynx moist, no oral exudates, nose normal. [] Eyes: PERRLA, EOMI. [] Neck: Normal range of motion, supple, no stridor. [] Cardiovascular: Irregular rhythm[] Lungs & Thorax: Bilateral breath sounds clear to auscultation, with mild bibasilar crackles [] Abdomen: Bowel sounds normal, soft, no tenderness. [] Skin: Warm, dry, no erythema, no rash. [] Back: Normal ROM. [] Extremities: No tenderness, ROM intact, bilateral 2+ LE edema. [] Neurologic: Alert and oriented X 3, normal motor function, normal sensory function, no focal deficits noted. [] Psychologic: Affect normal, judgement normal, mood normal. [] Current Patient Data Vital Signs Vital Signs Date Time Temp Pulse Resp B/P Pulse Ox O2 Delivery O2 Flow Rate FiO2 06/02/16 21:30 80 216/103 96 Nasal Cannula 2 06/02/16 20:35 97.6 22 97.6 Lab Values Laboratory Tests Test 06/02/16 20:48 06/02/16 20:49 06/02/16 21:15 White Blood Count 6.7x10^3/uL (4.0-11.0) Red Blood Count 4.80x10^6/uL (4.30-5.70) Hemoglobin 12.4g/dL (13.0-17.5) L Hematocrit 39.4% (39.0-53.0) Mean Corpuscular Volume 82fL (79-100) Mean Corpuscular Hemoglobin 26pg (25-35) Mean Corpuscular Hemoglobin Concent 32g/dL (31-37) Red Cell Distribution Width 19.3% (11.5-14.5) H Platelet Count 98x10^3/uL (140-400) L Neutrophils (%) (Auto) 79% (31-73) H Lymphocytes (%) (Auto) 12% (24-48) L Monocytes (%) (Auto) 8% (0-9) Eosinophils (%) (Auto) 1% (0-3) Basophils (%) (Auto) 1% (0-3) Neutrophils # (Auto) 5.3x10^3uL (1.8-7.7) Lymphocytes # (Auto) 0.8x10^3/uL (1.0-4.8) L Monocytes # (Auto) 0.5x10^3/uL (0.0-1.1) Eosinophils # (Auto) 0.0x10^3/uL (0.0-0.7) Basophils # (Auto) 0.0x10^3/uL (0.0-0.2) Prothrombin Time 16.3SEC (11.7-14.0) H Prothrombin Time INR 1.4 (0.8-1.1) H Sodium Level 140mmol/L (136-145) Potassium Level 4.1mmol/L (3.5-5.1) Chloride Level 105mmol/L (98-107) Carbon Dioxide Level 22mmol/L (21-32) Anion Gap 13 (6-14) Blood Urea Nitrogen 14mg/dL (8-26) Creatinine 1.0mg/dL (0.7-1.3) Estimated GFR (Cockcroft-Gault) 80.1 Glucose Level 116mg/dL (70-99) H Calcium Level 8.7mg/dL (8.5-10.1) Magnesium Level 2.0mg/dL (1.8-2.4) Troponin I Quantitative 0.025ng/mL (0.000-0.055) SW-Ghi-I-Type Natriuretic Peptide 4061pg/mL (0-124) H POC Troponin I 0.02ng/ml (<0.08) Urine Opiates Screen Pos (NEG) Urine Methadone Screen Neg (NEG) Urine Barbiturates Neg (NEG) Urine Phencyclidine Screen Neg (NEG) Urine Amphetamine/Methamphetamine Neg (NEG) Urine Benzodiazepines Screen Neg (NEG) Urine Cocaine Screen Neg (NEG) Urine Cannabinoids Screen Neg (NEG) Urine Ethyl Alcohol Neg (NEG) Laboratory Tests 06/02/16 20:48 Laboratory Tests 06/02/16 20:48 EKG EKG EKG as interpreted by me as irregular with right bundle branch block, rate 94, PVCs, does not meet STEMI criteria, MI 190, QTc 516, 2037 EKG as interpreted by me as sinus rhythm with right bundle branch block, rate 84 , PVCs, does not meet STEMI criteria, MI 172, QTC 517, 2043 Radiology/Procedures Radiology/Procedures Chest x-ray as interpreted by me with bilateral pulmonary vascular congestion concerning for mild CHF Course & Med Decision Making Course & Med Decision Making Pertinent Labs and Imaging studies reviewed. (See chart for details) Without improvement of chest pain with narcotics, was placed on nitro gtt with improvement in symptoms. Workup remarkable for elevated proBNP and mild vascular congestion on chest x-ray concerning for CHF exacerbation. Troponin is negative. Will admit for ACS rule out and CHF exacerbation. Discussed case with Dr. Cotton, who will admit. Cardiology consult placed. Dragon Disclaimer Dragon Disclaimer This electronic medical record was generated, in whole or in part, using a voice recognition dictation system. Departure Departure Impression: Primary Impression: CHF exacerbation Additional Impression: Chest pain Disposition: ADMITTED INPATIENT Condition: STABLE Referrals: ANDREA FOX (PCP) Problem Qualifiers Primary Impression: CHF exacerbation Congestive heart failure type: unspecified congestive heart failure type Qualified Code: I50.9 - Heart failure, unspecified Additional Impression: Chest pain Chest pain type: unspecified Qualified Code: R07.9 - Chest pain, unspecified Omar NOLASCO MD Jun 02, 2016 21:36
[2016-06-02] MEDS ORDERED: ONDANSETRON PF 4 MG/2 ML VIAL. IV PRN (22:15)
[2016-06-02] MEDS ORDERED: ACETAMINOPHEN 325 MG TABLET. PO PRN (22:15)
[2016-06-02] MEDS ORDERED: MORPHINE SULFATE 4 MG/ML DISP.SYRIN. IV PRN (22:15)
[2016-06-02] MEDS ORDERED: FUROSEMIDE 40 MG/4 ML VIAL IVP ONE (22:30)
--- NOTE | 2016-06-02 22:32 | ACF ---
Admission Forms Criteria HEART FAILURE: COMMON COMPLICATIONS Clinical Indications for Inpatient Care (Place 'X' for any and all applicable criteria): Ongoing inpatient care may be indicated for heart failure with ANY ONE of the following (1)(2)(3)(4)(5): [ ]I. Ongoing need for care for primary condition requiring frequent therapy adjustments because of changes in cardiac function (eg, drug dosage changes for drugs that are renally metabolized) [ ]II. New-onset heart failure [ ]III. Heart failure with decreased urine output not responsive to attempts to optimize volume status [ ]IV. Acute cardiac ischemia causing or associated with failure [X]V. Complications of heart failure, including ANY ONE of the following: [ ]a) Pericardial effusion [ ]b) Symptomatic pleural effusion [ ]c) O2 saturation <90% or PO2 < 60 mm Hg (8.0 kPa) on room air or require baseline supplemental O2 [ ]d) Tachypnea [X]e) Dyspnea [ ]f) Syncope [ ]g) Change in mental status [ ]h) Acute renal insufficiency that is severe (reduction of more than 50% in estimated glomerular filtration rate from baseline) or progressive reduction of more than 25% in estimated glomerular filtration rate from baseline, with creatinine continuing to rise) [ ]i) Hemodynamic instability [ ]j) Anasarca [ ]k) Clinically significant metabolic abnormalities due to heart failure (eg, new-onset metabolic acidosis) Extended stay beyond goal length of stay for primary condition may be needed until ALL of the following are present(1)(3): [ ]a) Stable and effective diuretic regimen established (or patient on stable dialysis regimen if in chronic renal failure) [ ]b) Breathing comfortably at rest [ ]c) Saturation of arterial oxygen greater than 90% or at acceptable baseline [ ]d) Pulmonary edema absent or improved [ ]e) Hemodynamic stability [ ]f) Volume status acceptable on oral medication [ ]g) Peripheral or sacral edema absent or improved [ ]h) Renal function stable and manageable at a lower level of care [ ]i) Complications (eg, pleural effusion) resolved or manageable at a lower level of care [ ]j) Patient or caregiver has received written discharge instructions or educational material addressing activity level, diet, discharge medications, follow-up appointment, weight monitoring, and what to do if symptoms worsen The original [facility] [facility] content created by [employer] has been revised. The portions of the content which have been revised are identified through the use of italic text or in bold, and [facility] has neither reviewed nor approved the modified material.All other unmodified content is copyright [facility]. Please see references footnoted in the original [facility] edition 2016 Admission Criteria Met?: Yes ROSHAN WOODY Jun 02, 2016 22:32
[2016-06-02 23:10] VITALS: BP 147/98
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
[2016-06-02] MEDS ORDERED: DIAZEPAM 2 MG TABLET PO PRN (23:15)
[2016-06-03] VITALS (11 sets, daily range): BP systolic 89–167; BP diastolic 53–94
[2016-06-03] MEDS: MORPHINE IR 15 MG TABLET PO PRN ×3 (00:15→13:41)
[2016-06-03] MEDS: MORPHINE SULFATE 10 MG/ML VIAL. IV PRN ×2 (03:26→09:40)
--- NOTE | 2016-06-03 07:07 | EKG ---
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
--- NOTE | 2016-06-03 07:07 | EKG ---
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
[2016-06-03] MEDS ORDERED: PANTOPRAZOLE 40 MG TABLET. PO SCH (07:30)
--- NOTE | 2016-06-03 08:29 | RAD ---
Portable chest, 06/02/2016: History: Chest pain Comparison is made to a study from 05/11/2016. A left-sided transvenous pacemaker remains in place with 2 leads extending into the heart. There has been a previous median sternotomy. The heart is enlarged. The pulmonary vascularity is at the upper limits of normal. No pulmonary infiltrate is seen. There is no evidence of pleural fluid. IMPRESSION: 1. Cardiomegaly. 2. No acute abnormality is detected.
[2016-06-03] MEDS: CARVEDILOL 12.5 MG TABLET PO SCH ×2 (08:46→16:46)
[2016-06-03] MEDS: FUROSEMIDE 40 MG TABLET PO SCH ×2 (08:46→16:46)
[2016-06-03] MEDS ORDERED: FLUTICASONE 50MCG/NASAL SPRAY 16GM BOTTLE. NS PRN (09:00)
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
[2016-06-03] MEDS ORDERED: hydrALAZINE 20 MG/ML VIAL. IVP PRN (11:00)
--- NOTE | 2016-06-03 11:33 | PDOC ---
PROGRESS NOTES Chief Complaint Chief Complaint Chest pain ASSESSMENT AND PLAN: 1. Angina: still present. strong CAD hx, his card at [place]. appreciate Mr Daly's input. remains on NTG gtt. 2. CHF, acute on chronic, systolic (EF 20-25%): IV lasix , coreg, lisinopril 3. Morbid obesity, BMI 51 4. Tobacco use: cessation strongly urged 5. anxiety: odd affect 6. Pain: chronic, managed by pain clinic with reported goal of decreasing Opana; claims to get opana qid - it's a 24h sustained release med... stop Morphine IV! 7. Dispo: home when cleared by cards Vitals Vitals Vital Signs Date Time Temp Pulse Resp B/P Pulse Ox O2 Delivery O2 Flow Rate FiO2 06/03/16 10:30 97.7 77 18 129/81 93 Room Air 97.7 06/03/16 10:24 2.0 Physical Exam General: Alert, Oriented X3, Cooperative, No acute distress Heart: Regular rate, Other (S4, 3/6 systolic murmur to LLS border otherwise distant heart sounds due to body habitus) Lungs: Clear, Other Abdomen: Soft, No tenderness, Other (massively obese) Extremities: No cyanosis, Other (3+ bilateral pedal edema) Skin: No breakdown, No significant lesion Labs LABS Laboratory Tests Test 06/02/16 20:48 06/02/16 20:49 06/02/16 21:15 06/03/16 04:04 White Blood Count 6.7x10^3/uL (4.0-11.0) Red Blood Count 4.80x10^6/uL (4.30-5.70) Hemoglobin 12.4g/dL (13.0-17.5) Hematocrit 39.4% (39.0-53.0) Mean Corpuscular Volume 82fL (79-100) Mean Corpuscular Hemoglobin 26pg (25-35) Mean Corpuscular Hemoglobin Concent 32g/dL (31-37) Red Cell Distribution Width 19.3% (11.5-14.5) Platelet Count 98x10^3/uL (140-400) Neutrophils (%) (Auto) 79% (31-73) Lymphocytes (%) (Auto) 12% (24-48) Monocytes (%) (Auto) 8% (0-9) Eosinophils (%) (Auto) 1% (0-3) Basophils (%) (Auto) 1% (0-3) Neutrophils # (Auto) 5.3x10^3uL (1.8-7.7) Lymphocytes # (Auto) 0.8x10^3/uL (1.0-4.8) Monocytes # (Auto) 0.5x10^3/uL (0.0-1.1) Eosinophils # (Auto) 0.0x10^3/uL (0.0-0.7) Basophils # (Auto) 0.0x10^3/uL (0.0-0.2) Prothrombin Time 16.3SEC (11.7-14.0) Prothromb Time International Ratio 1.4 (0.8-1.1) Sodium Level 140mmol/L (136-145) Potassium Level 4.1mmol/L (3.5-5.1) Chloride Level 105mmol/L (98-107) Carbon Dioxide Level 22mmol/L (21-32) Anion Gap 13 (6-14) Blood Urea Nitrogen 14mg/dL (8-26) Creatinine 1.0mg/dL (0.7-1.3) Estimated GFR (Cockcroft-Gault) 80.1 Glucose Level 116mg/dL (70-99) Calcium Level 8.7mg/dL (8.5-10.1) Magnesium Level 2.0mg/dL (1.8-2.4) Troponin I Quantitative 0.025ng/mL (0.000-0.055) 0.017ng/mL (0.000-0.055) PB-Rzi-D-Type Natriuretic Peptide 4061pg/mL (0-124) Bedside Troponin I 0.02ng/ml (<0.08) Urine Opiates Screen Pos (NEG) Urine Methadone Screen Neg (NEG) Urine Barbiturates Neg (NEG) Urine Phencyclidine Screen Neg (NEG) Urine Amphetamine/Methamphetamine Neg (NEG) Urine Benzodiazepines Screen Neg (NEG) Urine Cocaine Screen Neg (NEG) Urine Cannabinoids Screen Neg (NEG) Urine Ethyl Alcohol Neg (NEG) Test 06/03/16 09:55 Troponin I Quantitative 0.022ng/mL (0.000-0.055) Review of Systems Review of Systems resting in bed, chronic CP. RIDDHI BRINK MD Jun 03, 2016 11:33
[2016-06-03] MEDS ORDERED: ASPIRIN ENTERIC COATED 81 MG TABLET.DR. PO SCH (12:00)
[2016-06-03] MEDS ORDERED: LISINOPRIL 10 MG TABLET PO SCH (12:00)
[2016-06-03] MEDS ORDERED: ISOSORBIDE MONONITRATE ER 60 MG TAB.ER.24H PO SCH (12:00)
--- NOTE | 2016-06-03 14:04 | DISCH ---
DISCHARGE INSTRUCTIONS Condition on Discharge Condition on Discharge: Stable Activity After Discharge Activity Instructions for Disc: No restrictions Diet after Discharge Diet after Discharge: Cardiac Follow-Up Follow up with: pain clinic; resume previous dose of morphine Follow Up With: your sewer as peviously arranged RIDDHI BRINK MD Jun 03, 2016 14:04
[2016-06-03] MEDS ORDERED: EZETIMIBE 10 MG TABLET PO SCH (21:00)
[2016-06-03] MEDS ORDERED: ATORVASTATIN CALCIUM 40 MG TABLET. PO SCH (21:00)
[2016-06-03] MEDS ORDERED: NIACIN ER 500 MG TABLET.ER PO SCH (21:00)
== END 2016-06-03 17:52 | disposition home or self-care (01) | DRG 291 ==
LOC: ER 20:35 → 2 NORTH 21:30
PROVIDERS: ADMIT Internal Medicine; ATTEND Internal Medicine
DX: I13.0 Hypertensive heart and chronic kidney disease with heart failure and stage 1 through stage 4 chronic kidney disease, or unspecified chronic kidney disease (principal); I50.23 Acute on chronic systolic (congestive) heart failure; Z68.43 Body mass index [BMI] 50.0-59.9, adult; I42.9 Cardiomyopathy, unspecified; I25.119 Atherosclerotic heart disease of native coronary artery with unspecified angina pectoris; G62.9 Polyneuropathy, unspecified; K21.9 Gastro-esophageal reflux disease without esophagitis; F41.9 Anxiety disorder, unspecified; M19.90 Unspecified osteoarthritis, unspecified site; Z96.659 Presence of unspecified artificial knee joint; Z95.1 Presence of aortocoronary bypass graft; F17.200 Nicotine dependence, unspecified, uncomplicated; E66.01 Morbid (severe) obesity due to excess calories; G89.29 Other chronic pain; G47.33 Obstructive sleep apnea (adult) (pediatric); J44.9 Chronic obstructive pulmonary disease, unspecified; M54.5 Low back pain; E78.5 Hyperlipidemia, unspecified; Z90.49 Acquired absence of other specified parts of digestive tract; Z82.49 Family history of ischemic heart disease and other diseases of the circulatory system; Z71.6 Tobacco abuse counseling; Z95.5 Presence of coronary angioplasty implant and graft; Z91.11 Patient's noncompliance with dietary regimen; Z91.19 Patient's noncompliance with other medical treatment and regimen; I48.91 Unspecified atrial fibrillation; E78.00 Pure hypercholesterolemia, unspecified; N18.9 Chronic kidney disease, unspecified
CPT/HCPCS: 36415; 71010; 80048; 83735; 83880; 84484; 85027; 85610; 93005; 96365; 96366; 96375; 99406; G0481; J1940; J2270; J2405; J3490; 99285-25

== ENCOUNTER 2016-07-21 23:49 | Inpatient (IN) | payer MEDICARE, MEDICAID ==
[~2016-07-21] VITALS: Ht 180.3 cm; Wt 159.7 kg
[~2016-07-21 23:49] MED LIST changes: -PRAS10TA4 PO; +PRAS10TA9 PO
[2016-07-22 00:19] LABS: BASO % 1 % (0-3); EOS % 2 % (0-3); HEMATOCRIT 36.8 % (39.0-53.0); HEMOGLOBIN 12.2 g/dL (13.0-17.5); LYMPH % 20 % (24-48); MEAN CORPUSCULAR HEMOGLOBIN 28 pg (25-35); MEAN CORPUSCULAR HGB CONC 33 g/dL (31-37); MEAN CORPUSCULAR VOLUME 84 fL (79-100); MONO % 10 % (0-9); NEUT % 67 % (31-73); PLATELET COUNT 119 x10^3/uL (140-400); RED CELL DISTRIBUTION WIDTH 21.6 % (11.5-14.5); WHITE BLOOD COUNT 5.1 x10^3/uL (4.0-11.0)
[2016-07-22 00:30] LABS: CALCIUM 8.7 mg/dL (8.5-10.1); GFR 80.1; POTASSIUM 3.6 mmol/L (3.5-5.1)
[2016-07-22 00:36] LABS: ALBUMIN 3.1 g/dL (3.4-5.0); ALBUMIN/GLOBULIN RATIO 0.7 (1.0-1.7); TOTAL BILIRUBIN 1.3 mg/dL (0.2-1.0); TOTAL PROTEIN 7.6 g/dL (6.4-8.2)
[2016-07-22 01:25] LABS: PLT ESTIMATE DECREASED (ADEQUATE)
[2016-07-22 01:26] LABS: ANISOCYTOSIS MOD
[2016-07-22] MEDS ORDERED: ONDANSETRON PF 4 MG/2 ML VIAL. IV ONE (01:30)
[2016-07-22] MEDS ORDERED: NITROGLYCERIN SUBLINGUAL 0.4 MG BOTTLE OF 25. SL PRN (01:30)
[2016-07-22] MEDS ORDERED: FUROSEMIDE 40 MG/4 ML VIAL. IVP ONE (01:30)
[2016-07-22] MEDS ORDERED: ACETAMINOPHEN 325 MG TABLET. PO PRN (01:30)
[2016-07-22] MEDS ORDERED: ONDANSETRON PF 4 MG/2 ML VIAL. IV PRN (01:30)
[2016-07-22] MEDS ORDERED: HYDROmorphone 2 MG/ML VIAL IV ONE (01:30)
[2016-07-22] MEDS ORDERED: KETOROLAC 15 MG/ML VIAL. IV ONE (01:30)
[2016-07-22] MEDS ORDERED: ASPIRIN CHEWABLE 81 MG TABLET. PO ONE (01:30)
[2016-07-22] MEDS: fentaNYL PF VIAL 100 MCG/2 ML VIAL IV PRN ×2 (03:25→08:56)
[2016-07-22 03:50] VITALS: BP 124/84
--- NOTE | 2016-07-22 04:35 | PHYS DOC ---
Past Medical History Past Medical History: A-Fib, Anxiety, CHF, Depression, GERD, High Cholesterol, Hypertension, [place], [place] Additional Past Medical Histor: CHRONIC PAIN Past Surgical History: Cholecystectomy, Coronary Bypass Surgery, Knee Replacement, Pacemaker, Tonsillectomy, Other Additional Past Surgical Histo: cardiac stents(6), LEFT FEMUR SURGERY, karsten R femur, skin graft, LITHOTRIPSY Alcohol Use: Rarely Drug Use: None Adult General Chief Complaint Chief Complaint: CHEST PAIN HPI HPI Patient is a 45 year old gentleman with a history significant for coronary artery disease, status post CABG 2, hypertension, CHF, status post cholecystectomy, stents 6, status post AICD placement, presents here today complaining of chest pain. Patient of note also has a history of chronic back pain and he reports his primary care physician recently within the last 30 days as abruptly stopped all his pain medicines and he has been having chronic pain and withdrawal like symptoms ever since. Patient has any fevers shakes chills. Patient reports she's had nausea vomiting diarrhea for 30 days since his medications about stop. Patient reports she has chronic pain secondary to DJD in his back. Patient reports that the pain that is experiencing his chest today with a pressure-type sensation similar to his prior coronary artery disease pain. Patient reports she took 3 sublingual nitroglycerin without any relief in his pain. Patient reports he has edema to his lower 70s however it's at his baseline. Patient complains shortness of breath and diaphoresis. Patient denies any radiating pain. Patient has any syncope. Patient denies any abdominal discomfort. Patient's physical exam is significant for morbidly obese. Brawny edema of his lower 70s. Reproducible tenderness to his anterior chest wall. His lungs were clear. Patient did not appear to be in extremis. Patient's ER workup was unremarkable. Patient's heart size was markedly enlarged. There is no infiltrates or effusions. Patient's labs were all within normal limits. Patient's EKG revealed sinus tach with multiple PVCs. A/P #1 atypical chest pain. Patient was extremely significant cardiac history with concerning chest pain. Although it is unclear whether or not this might be related to the patient's chronic pain it would be difficult to ascertain the ED. Patient will be admitted to the hospital for further evaluation and management of this discomfort. We will consult cardiology for further assistance. Review of Systems Review of Systems Constitutional: Denies fever or chills [] Eyes: Denies change in visual acuity, redness, or eye pain [] HENT: Denies nasal congestion or sore throat [] All other review systems are negative except as documented in history of present illness portion. Allergies Allergies Allergies Coded Allergies Type Severity Reaction Last Updated Verified buprenorphine Allergy Severe Anaphylaxis 07/22/16 Yes naloxone Allergy Severe Anaphylaxis 07/22/16 Yes Penicillins Allergy Intermediate RESPIRATORY DISTRESS,HIVES 05/09/16 Yes Physical Exam Physical Exam Constitutional: Well developed, well nourished, no acute distress, non-toxic appearance. [] HENT: Normocephalic, atraumatic, bilateral external ears normal, Eyes: PERRLA, EOMI, conjunctiva normal, no discharge. [] Neck: Normal range of motion, no tenderness, supple, no stridor. [] Cardiovascular:Heart rate regular rhythm without ectopy Lungs & Thorax: Bilateral breath sounds clear to auscultation [] Abdomen: Morbidly obese. Bowel sounds normal, soft, no tenderness, no masses, no pulsatile masses. [] Skin: Warm, dry, no erythema, no rash. [] Back: No tenderness, no CVA tenderness. [] Extremities: No tenderness, no cyanosis, no clubbing, ROM intact, brawny edema. Neurologic: Alert and oriented X 3, normal motor function, normal sensory function, no focal deficits noted. [] Psychologic: Affect normal, judgement normal, mood normal. [] Current Patient Data Vital Signs Vital Signs Date Time Temp Pulse Resp B/P (MAP) Pulse Ox O2 Delivery O2 Flow Rate FiO2 07/22/16 00:06 120 24 150/89 (109) 95 Room Air Lab Values Laboratory Tests Test 07/22/16 00:08 White Blood Count 5.1 x10^3/uL (4.0-11.0) Red Blood Count 4.40 x10^6/uL (4.30-5.70) Hemoglobin 12.2 g/dL (13.0-17.5) L Hematocrit 36.8 % (39.0-53.0) L Mean Corpuscular Volume 84 fL (79-100) Mean Corpuscular Hemoglobin 28 pg (25-35) Mean Corpuscular Hemoglobin Concent 33 g/dL (31-37) Red Cell Distribution Width 21.6 % (11.5-14.5) H Platelet Count 119 x10^3/uL (140-400) L Neutrophils (%) (Auto) 67 % (31-73) Lymphocytes (%) (Auto) 20 % (24-48) L Monocytes (%) (Auto) 10 % (0-9) H Eosinophils (%) (Auto) 2 % (0-3) Basophils (%) (Auto) 1 % (0-3) Neutrophils # (Auto) 3.4 x10^3uL (1.8-7.7) Lymphocytes # (Auto) 1.0 x10^3/uL (1.0-4.8) Monocytes # (Auto) 0.5 x10^3/uL (0.0-1.1) Eosinophils # (Auto) 0.1 x10^3/uL (0.0-0.7) Basophils # (Auto) 0.0 x10^3/uL (0.0-0.2) Platelet Estimate Decreased (ADEQUATE) Anisocytosis Mod Sodium Level 137 mmol/L (136-145) Potassium Level 3.6 mmol/L (3.5-5.1) Chloride Level 104 mmol/L (98-107) Carbon Dioxide Level 24 mmol/L (21-32) Anion Gap 9 (6-14) Blood Urea Nitrogen 12 mg/dL (8-26) Creatinine 1.0 mg/dL (0.7-1.3) Estimated GFR (Cockcroft-Gault) 80.1 BUN/Creatinine Ratio 12 (6-20) Glucose Level 122 mg/dL (70-99) H Calcium Level 8.7 mg/dL (8.5-10.1) Total Bilirubin 1.3 mg/dL (0.2-1.0) H Aspartate Amino Transferase (AST) 24 U/L (15-37) Alanine Aminotransferase (ALT) 20 U/L (16-63) Alkaline Phosphatase 89 U/L (46-116) Troponin I Quantitative 0.030 ng/mL (0.000-0.055) TC-Ecs-K-Type Natriuretic Peptide 2040 pg/mL (0-124) H Total Protein 7.6 g/dL (6.4-8.2) Albumin 3.1 g/dL (3.4-5.0) L Albumin/Globulin Ratio 0.7 (1.0-1.7) L Laboratory Tests 07/22/16 00:08 Laboratory Tests 07/22/16 00:08 EKG EKG [] Radiology/Procedures Radiology/Procedures [] Course & Med Decision Making Course & Med Decision Making Pertinent Labs and Imaging studies reviewed. (See chart for details) [] Dragon Disclaimer Dragon Disclaimer This electronic medical record was generated, in whole or in part, using a voice recognition dictation system. Departure Departure Impression: Primary Impression: Opiate withdrawal Additional Impressions: Chest pain Tachycardia Disposition: ADMITTED INPATIENT Admitting Physician: Other (daisy) Condition: GUARDED Referrals: ANDREA FOX (PCP) Problem Qualifiers Additional Impressions: Chest pain Chest pain type: unspecified Qualified Codes: R07.9 - Chest pain, unspecified KENYA FELTON MD July 22, 2016 04:35
--- NOTE | 2016-07-22 05:31 | ACF ---
Admission Forms Criteria DRUG INGESTION OR OVERDOSE Clinical Indications for Admission to Inpatient Care ( Place 'X' for any and all applicable criteria): Admission is indicated for severe toxicity as indicated by ANY ONE of the following(1)(2)(3)(4)(5)(6): [X]I. Inpatient admission required rather than observation care (Also use Drug Ingestion or Overdose: Observation Care guideline as appropriate) because of ANY ONE of the following: [ ]a) Altered mental status that is severe or persistent [ ]b) Clinical finding (eg, metabolic acidosis, hypoglycemia, bradycardia) that is severe or persistent [ ]c) Toxic drug level that is persistent [ ]d) Psychiatric risk status not acceptable for outpatient management [ ]e) Continuous intravenous infusion of anticoagulation, platelet inhibitor, vasoactive, or antiarrhythmic medication (15)(16) [X]f) Other condition, treatment or monitoring requiring inpatient admission [ ]II. Respiratory abnormalities [ ]III. Specific finding indicating severe and likely prolonged drug toxicity [ ]IV. Hemodynamic instability [ ]V. Dangerous arrhythmia [ ]. Hypertension requiring inpatient treatment Extended stay beyond goal length of stay may be needed for (4): [ ]a) Neurologic or respiratory compromise [ ]b) Hemodynamic instability [ ]c) Persistent toxic drug levels (25) [ ]d) Severe drug toxicities or complications [ ]e) Ongoing antidote treatment (eg, acetaminophen overdose)(5) [ ]f) Older patients(65 years or older) The original [employer] content created by [employer] has been revised. The portions of the content which have been revised are identified through the use of italic text or in bold, and [facility] has neither reviewed nor approved the modified material. All other unmodified content is copyright [employer]. Please see references footnoted in the original [employer] edition 2016 Admission Criteria Met?: Yes ILA ANDERSON July 22, 2016 05:31
[2016-07-22] MEDS ORDERED: ONDA4TAB7 PO (05:32)
--- NOTE | 2016-07-22 07:15 | RAD ---
Exam number: One view chest. History: Chest pain, shortness of air. Date of service: 07/22/16. Comparison: 06/02/16. Single AP upright portable view chest findings: Cardiomegaly. Central vascular congestion. Left lung base is obscured due to enlarged cardiac silhouette. No pleural effusion or pneumothorax. Impression: Cardiomegaly with central vascular congestion.
[2016-07-22 07:20] VITALS: BP 136/58
--- NOTE | 2016-07-22 07:50 | EKG ---
[facility] [address] [place] [address] Test Date: 2016-07-21 Test Time: 23:53:09 Pat Name: SHONNA FREEMAN Department: Room: 254 1 Gender: M Pond Supervisor: : 1970 Requested By: RIDDHI BRINK Order Number: [id number] Reading MD: Black Fitzpatrick Measurements Intervals [place] Rate: 111 P: 66 CT: 144 QRS: 152 QRSD: 166 T: 38 QT: 370 QTc: 507 Interpretive Statements SUSPECT SINUS TACHYCARDIA PAC'S PVC Electronically Signed On 07-27-2016 9:14:27 CDT by Black Fitzpatrick
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
[2016-07-22] MEDS ORDERED: LIDO700A4 TP (10:33)
[2016-07-22 11:00] VITALS: BP 127/70
[2016-07-22] MEDS ORDERED: ISOSORBIDE MONONITRATE ER 60 MG TAB.ER.24H. PO SCH (11:00)
[2016-07-22] MEDS ORDERED: FUROSEMIDE 40 MG TABLET. PO SCH (11:00)
[2016-07-22] MEDS ORDERED: ASPIRIN ENTERIC COATED 81 MG TABLET.DR. PO SCH (11:00)
[2016-07-22] MEDS ORDERED: CARVEDILOL 12.5 MG TABLET. PO SCH (11:00)
[2016-07-22] MEDS ORDERED: PANTOPRAZOLE 40 MG TABLET.DR. PO SCH (11:00)
[2016-07-22] MEDS ORDERED: LISINOPRIL 10 MG TABLET PO SCH (12:00)
[2016-07-22 12:11] VITALS: BP 127/70
--- NOTE | 2016-07-22 12:58 | SSS ---
ADMIT DATE: 07/22/2016 CHIEF COMPLAINT: Chest pain. HISTORY OF PRESENT ILLNESS: The patient is a 45-year-old obese gentleman with past medical history of CAD, CHF, chronic pain syndrome, on massive doses of Opana in the past who presented to the Emergency Room with a midsternal chest pain, radiating to his right shoulder. He relates that pain is actually still there. Nitroglycerin did not help. He denies any other symptoms associated with this including nausea, vomiting, diaphoresis, headache or shortness of breath. Of note, the patient had been on 200 mg of long and short-acting morphine, but was taken off suddenly by his PCP about one month ago due to loss of pain clinic doctor. The patient has been making rounds in hospitals in hopes of receiving narcotics. PAST MEDICAL HISTORY: CAD status post CABG, CHF, atrial fibrillation, hypertension, high cholesterol, chronic pain syndrome with a history of back surgery as well as left femur surgery, kidney stones, status post lithotripsy, pacemaker placement as well as knee replacement. FAMILY HISTORY: Positive for CAD. SOCIAL HISTORY: Lives by himself. Drinks alcohol rarely. Denies smoking or drugs. ALLERGIES: PENICILLIN, BUPRENORPHINE AND NALOXONE. MEDICATIONS: MAR reconciled with home medications. REVIEW OF SYSTEMS: Chest pain as per HPI, mildly persisting chronic back pain, severe, no other symptoms in rest of organ system review. PHYSICAL EXAMINATION: VITAL SIGNS: From today show a blood pressure of 124/84, heart rate of 110. He is afebrile. GENERAL: This is a massively obese gentleman, alert and oriented, in no acute distress. HEENT: Shows no scleral icterus. Oral mucosa is pink and moist. He is edentulous. NECK: Supple, without any lymphadenopathy. LUNGS: Clear. HEART: Slightly tachycardic. No murmur appreciated. ABDOMEN: Obese, positive bowel sounds. Organs could not be palpated. EXTREMITIES: Show no edema. SKIN: Warm, soft and dry. LABORATORY DATA: CBC with a WBC of 5.1, hemoglobin 12.2, platelets of 119. Chemistries: BUN and creatinine 12 and 1.0, normal electrolytes. BNP 2040, stable troponins at 0.03, 0.04, a total bilirubin at 1.3. IMAGING STUDIES: Chest x-ray obtained in the Emergency Room reveals cardiomegaly with central vascular congestion. ASSESSMENT AND PLAN: The patient is a 45-year-old gentleman presenting with atypical chest pain. He does have some congestion, which for him is essentially chronic. Continue on his diuretic. Chest pain I suspect is due to an unrelated and rather a chest wall pain or potentially ____ for him to obtain further narcotics. He has been evaluated by Cardiology and deemed appropriate for discharge. Chronic pain has been an issue for him. He has been unable to find a PCP or pain center that is willing to give him narcotics. We will give him the number for pain clinic here to see Dr. Grace in followup [facility]. In the meantime, prescription for fentanyl patch was given. He was instructed to also use either Aleve or ibuprofen and heat on his back. DISCHARGE DATE: 07/22/2016. DISCHARGE DISPOSITION: To home. DISCHARGE CONDITION: Stable. DISCHARGE DIAGNOSES: Chest wall pain, chronic pain syndrome. DISCHARGE MEDICATIONS: Please refer to MAR. DISCHARGE INSTRUCTIONS: The patient will follow up with PCP and Cardiology as previously arranged. He will follow up with Dr. Grace in the Pain Clinic here [place]. RIDDHI BRINK MD DR: RICARDA/nts JOB#: [id number] / [id number] ANDREA Green
[2016-07-22] MEDS ORDERED: EZETIMIBE 10 MG TABLET. PO SCH (21:00)
[2016-07-22] MEDS ORDERED: ATORVASTATIN CALCIUM 40 MG TABLET. PO SCH (21:00)
[2016-07-23] MEDS ORDERED: ISOSORBIDE MONONITRATE ER 30 MG TAB.ER.24H PO SCH (09:00)
== END 2016-07-22 12:50 | disposition home or self-care (01) | DRG 292 ==
LOC: ER 23:49 → 2 SOUTH 07-22 01:17
PROVIDERS: ADMIT Internal Medicine Hematology & Oncology; ATTEND Internal Medicine Hematology & Oncology
DX: I11.0 Hypertensive heart disease with heart failure (principal); F11.23 Opioid dependence with withdrawal; Z68.42 Body mass index [BMI] 45.0-49.9, adult; I25.10 Atherosclerotic heart disease of native coronary artery without angina pectoris; I50.23 Acute on chronic systolic (congestive) heart failure; G89.4 Chronic pain syndrome; I42.9 Cardiomyopathy, unspecified; R07.89 Other chest pain; E66.01 Morbid (severe) obesity due to excess calories; E78.5 Hyperlipidemia, unspecified; F17.210 Nicotine dependence, cigarettes, uncomplicated; G47.33 Obstructive sleep apnea (adult) (pediatric); I45.10 Unspecified right bundle-branch block; I48.91 Unspecified atrial fibrillation; J44.9 Chronic obstructive pulmonary disease, unspecified; K21.9 Gastro-esophageal reflux disease without esophagitis; M47.9 Spondylosis, unspecified; Z76.5 Malingerer [conscious simulation]; Z82.49 Family history of ischemic heart disease and other diseases of the circulatory system; Z90.49 Acquired absence of other specified parts of digestive tract; Z91.11 Patient's noncompliance with dietary regimen; Z87.442 Personal history of urinary calculi; Z91.19 Patient's noncompliance with other medical treatment and regimen; Z95.0 Presence of cardiac pacemaker; Z95.1 Presence of aortocoronary bypass graft; Z95.5 Presence of coronary angioplasty implant and graft; Z95.810 Presence of automatic (implantable) cardiac defibrillator; Z96.659 Presence of unspecified artificial knee joint; F32.9 Major depressive disorder, single episode, unspecified
CPT/HCPCS: 36415; 71010; 80053; 83880; 84484; 85007; 85027; 93005; 96374; 96375; 99406; J1170; J1885; J1940; J2405; J3010; 99285-25

== ENCOUNTER 2016-07-27 07:42 | Inpatient (IN) | payer MEDICARE, MEDICAID ==
[~2016-07-27] VITALS: Ht 180.3 cm; Wt 149.7 kg
[~2016-07-27 07:42] MED LIST changes: +LIDO700A4 TP; +ONDA4TAB7 PO
--- NOTE | 2016-07-27 07:59 | PHYS DOC ---
Past Medical History Past Medical History: A-Fib, Anxiety, CHF, Depression, GERD, High Cholesterol, Hypertension, Kidney Stone, [place] Additional Past Medical Histor: CHRONIC PAIN, bone graft and muscle graft Past Surgical History: Cholecystectomy, Coronary Bypass Surgery, Knee Replacement, Pacemaker, Tonsillectomy, Other Additional Past Surgical Histo: cardiac stents(6), LEFT FEMUR SURGERY, karsten R femur, skin graft, LITHOTRIPSY Alcohol Use: None Drug Use: None Adult General Chief Complaint Chief Complaint: CHEST PAIN HPI HPI Patient is a 45 year old male presenting to the emergency department for evaluation of chest pain shortness of breath diaphoresis that woke him from sleep several hours ago. Patient says it feels like an elephant sitting on his chest. He took his nitroglycerin with no pain relief and was given a full dose aspirin by EMS. He has a strong cardiac history with multiple vessel bypass surgery and has required multiple stents. He appears somewhat diaphoretic. Patient seen last week for back pain and chest pain and was admitted and there is some concern of opioid withdrawal. Review of Systems Review of Systems Constitutional: Denies fever or chills [] Eyes: Denies change in visual acuity, redness, or eye pain [] HENT: Denies nasal congestion or sore throat [] Respiratory: Denies cough. + shortness of breath [] Cardiovascular: +cp GI: Denies abdominal pain, nausea, vomiting, bloody stools or diarrhea [] : Denies dysuria or hematuria [] Musculoskeletal: Denies back pain or joint pain [] Integument: Denies rash or skin lesions [] Neurologic: Denies headache, focal weakness or sensory changes [] Current Medications Current Medications Current Medications Medications (Trade) Dose Ordered Sig/Frank Start Time Stop Time Status Last Admin Dose Admin Morphine Sulfate 5 mg 1X ONCE 07/27/16 08:00 07/27/16 08:01 DC 07/27/16 08:54 5 MG Nitroglycerin (Nitrostat) 0.4 mg PRN Q5MIN PRN 07/27/16 08:00 07/27/16 08:39 0.4 MG Ondansetron HCl (Zofran) 4 mg PRN Q8HRS PRN 07/27/16 09:00 07/28/16 08:59 Allergies Allergies Allergies Coded Allergies Type Severity Reaction Last Updated Verified buprenorphine Allergy Severe Anaphylaxis 07/22/16 Yes naloxone Allergy Severe Anaphylaxis 07/22/16 Yes Penicillins Allergy Intermediate RESPIRATORY DISTRESS,HIVES 05/09/16 Yes Physical Exam Physical Exam Constitutional: Well developed, well nourished, no acute distress, non-toxic appearance. [] HENT: Normocephalic, atraumatic, bilateral external ears normal, oropharynx moist, no oral exudates, nose normal. [] Eyes: PERRLA, EOMI, conjunctiva normal, no discharge. [] Neck: Normal range of motion, no tenderness, supple, no stridor. [] Cardiovascular:Heart rate regular rhythm, no murmur [] Lungs & Thorax: Bilateral breath sounds clear to auscultation [] Abdomen: Bowel sounds normal, soft, no tenderness, no masses, no pulsatile masses. [] Skin: Warm, dry, no erythema, no rash. [] Back: No tenderness, no CVA tenderness. [] Extremities: No tenderness, no cyanosis, no clubbing, ROM intact, 2-3+ edema BL Neurologic: Alert and oriented X 3, normal motor function, normal sensory function, no focal deficits noted. [] Psychologic: Affect normal, judgement normal, mood normal. [] Current Patient Data Vital Signs Vital Signs Date Time Temp Pulse Resp B/P (MAP) Pulse Ox O2 Delivery O2 Flow Rate FiO2 07/27/16 08:39 94 119/76 07/27/16 07:46 97.0 19 96 Room Air 97.0 Lab Values Laboratory Tests Test 07/27/16 08:06 White Blood Count 4.8 x10^3/uL (4.0-11.0) Red Blood Count 4.39 x10^6/uL (4.30-5.70) Hemoglobin 12.0 g/dL (13.0-17.5) L Hematocrit 37.3 % (39.0-53.0) L Mean Corpuscular Volume 85 fL (79-100) Mean Corpuscular Hemoglobin 28 pg (25-35) Mean Corpuscular Hemoglobin Concent 32 g/dL (31-37) Red Cell Distribution Width 21.1 % (11.5-14.5) H Platelet Count 113 x10^3/uL (140-400) L Neutrophils (%) (Auto) 65 % (31-73) Lymphocytes (%) (Auto) 23 % (24-48) L Monocytes (%) (Auto) 10 % (0-9) H Eosinophils (%) (Auto) 1 % (0-3) Basophils (%) (Auto) 1 % (0-3) Neutrophils # (Auto) 3.1 x10^3uL (1.8-7.7) Lymphocytes # (Auto) 1.1 x10^3/uL (1.0-4.8) Monocytes # (Auto) 0.5 x10^3/uL (0.0-1.1) Eosinophils # (Auto) 0.1 x10^3/uL (0.0-0.7) Basophils # (Auto) 0.0 x10^3/uL (0.0-0.2) Prothrombin Time 15.7 SEC (11.7-14.0) H Prothrombin Time INR 1.3 (0.8-1.1) H PTT 33 SEC (24-38) Sodium Level 138 mmol/L (136-145) Potassium Level 3.5 mmol/L (3.5-5.1) Chloride Level 104 mmol/L (98-107) Carbon Dioxide Level 27 mmol/L (21-32) Anion Gap 7 (6-14) Blood Urea Nitrogen 7 mg/dL (8-26) L Creatinine 0.9 mg/dL (0.7-1.3) Estimated GFR (Cockcroft-Gault) 90.4 BUN/Creatinine Ratio 8 (6-20) Glucose Level 100 mg/dL (70-99) H Calcium Level 8.6 mg/dL (8.5-10.1) Magnesium Level 2.0 mg/dL (1.8-2.4) Total Bilirubin 1.1 mg/dL (0.2-1.0) H Aspartate Amino Transferase (AST) 20 U/L (15-37) Alanine Aminotransferase (ALT) 20 U/L (16-63) Alkaline Phosphatase 104 U/L (46-116) Creatine Kinase 31 U/L (39-308) L Troponin I Quantitative 0.055 ng/mL (0.000-0.055) ML-Xuj-E-Type Natriuretic Peptide 3439 pg/mL (0-124) H Total Protein 7.7 g/dL (6.4-8.2) Albumin 3.1 g/dL (3.4-5.0) L Albumin/Globulin Ratio 0.7 (1.0-1.7) L Lipase 122 U/L (73-393) Ethyl Alcohol Level < 10 mg/dL (0-10) Laboratory Tests 07/27/16 08:06 Laboratory Tests 07/27/16 08:06 EKG EKG Sinus tach at 105 bpm. Wide complex. No obvious ischemic changes. Radiology/Procedures Radiology/Procedures Portable chest, 07/27/2016: History: Chest pain since this morning Comparison is made to a study from 07/22/2016. There has been a previous median sternotomy. A left-sided transvenous pacing device remains in place, unchanged in position. The heart is enlarged. The pulmonary vascularity is normal. No pulmonary infiltrate is seen. There is mild unchanged elevation of the right hemidiaphragm. There is no evidence of pleural fluid. IMPRESSION: 1. Cardiomegaly. 2. No acute infiltrates. 3. No significant change since 07/22/2016. DICTATED and SIGNED BY: NAYAN RAYMOND MD DATE: 07/27/16831 Course & Med Decision Making Course & Med Decision Making Patient is a very poor vasculopath and his here for chest pain. There is some drug-seeking behavior concerns however given his complaints and parents he'll be admitted for further observation and treatment. Dragon Disclaimer Dragon Disclaimer This electronic medical record was generated, in whole or in part, using a voice recognition dictation system. Departure Departure Impression: Primary Impression: Chest pain Additional Impression: Elevated brain natriuretic peptide (BNP) level Disposition: ADMITTED INPATIENT Admitting Physician: Lois Cotton Condition: STABLE Referrals: ANDREA FOX (PCP) Problem Qualifiers Primary Impression: Chest pain Chest pain type: unspecified Qualified Codes: R07.9 - Chest pain, unspecified ANDREA ORDAZ DO July 27, 2016 07:59
[2016-07-27] MEDS ORDERED: MORPHINE SULFATE 10 MG/ML VIAL. IV ONE (08:00)
[2016-07-27] MEDS ORDERED: NITROGLYCERIN SUBLINGUAL 0.4 MG BOTTLE OF 25. SL PRN (08:00)
--- NOTE | 2016-07-27 08:23 | EKG ---
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
[2016-07-27 08:30] LABS: RED BLOOD COUNT 4.39 x10^6/uL (4.30-5.70); WHITE BLOOD COUNT 4.8 x10^3/uL (4.0-11.0)
[2016-07-27 08:31] LABS: BASO % 1 % (0-3); EOS % 1 % (0-3); HEMATOCRIT 37.3 % (39.0-53.0); LYMPH # 1.1 x10^3/uL (1.0-4.8); LYMPH % 23 % (24-48); MEAN CORPUSCULAR HEMOGLOBIN 28 pg (25-35); MEAN CORPUSCULAR HGB CONC 32 g/dL (31-37); MEAN CORPUSCULAR VOLUME 85 fL (79-100); MONO % 10 % (0-9); NEUT % 65 % (31-73); PLATELET COUNT 113 x10^3/uL (140-400); RED CELL DISTRIBUTION WIDTH 21.1 % (11.5-14.5)
--- NOTE | 2016-07-27 08:37 | RAD ---
Portable chest, 07/27/2016: History: Chest pain since this morning Comparison is made to a study from 07/22/2016. There has been a previous median sternotomy. A left-sided transvenous pacing device remains in place, unchanged in position. The heart is enlarged. The pulmonary vascularity is normal. No pulmonary infiltrate is seen. There is mild unchanged elevation of the right hemidiaphragm. There is no evidence of pleural fluid. IMPRESSION: 1. Cardiomegaly. 2. No acute infiltrates. 3. No significant change since 07/22/2016.
[2016-07-27 08:41] LABS: CALCIUM 8.6 mg/dL (8.5-10.1); CREATININE 0.9 mg/dL (0.7-1.3); GFR 90.4; INR 1.3 (0.8-1.1); POTASSIUM 3.5 mmol/L (3.5-5.1); PROTHROMBIN TIME PATIENT 15.7 SEC (11.7-14.0)
[2016-07-27 08:48] LABS: ALBUMIN 3.1 g/dL (3.4-5.0); ALBUMIN/GLOBULIN RATIO 0.7 (1.0-1.7); TOTAL BILIRUBIN 1.1 mg/dL (0.2-1.0); TOTAL PROTEIN 7.7 g/dL (6.4-8.2)
[2016-07-27] MEDS ORDERED: ONDANSETRON PF 4 MG/2 ML VIAL. IV PRN (09:00)
--- NOTE | 2016-07-27 10:30 | ACF ---
Admission Forms Criteria CHEST PAIN Clinical Indications for Admission to Inpatient Care (Place 'X' for any and all applicable criteria): Admission is indicated for chest pain and ANY ONE of the following(1)(2)(3)(4)(5 ): [ ]I. Angina with acute coronary syndrome (Also use Myocardial Infarction or Angina guideline) [ ]II. Hemodynamic instability [X]III. Angina needing acute intervention as indicated by ALL of the following( 11)(12): [X]a) Unstable angina is present as indicated by angina that is ANY ONE of the following: [ ]i) New onset [ ]ii) Nocturnal [ ]iii) Prolonged at rest [X]iv) Progressive [X]b) Angina warrants acute intervention as indicated by ANY ONE of the following: [ ]i) Recurrent angina (e.g, not responding as previously to treatment) [ ]ii) Angina at rest or with low-level activities despite initial medical therapy [ ]iii) New or presumably new ST-segment depression on ECG [ ]iv) Signs or symptoms of heart failure (eg, dyspnea, pulmonary edema) [ ]v) New or worsening mitral regurgitation [ ]vi) Hemodynamic instability [ ]vii) Dangerous arrhythmia (eg, sustained ventricular tachycardia) [ ]viii) History of percutaneous coronary intervention within 6 months [X]ix) History of coronary artery bypass graft surgery [ ]x) CARMEN risk score of 2 or greater[A] [ ]xi) History of Diabetes(14) [ ]xii) High-risk cardiac ischemia findings on noninvasive testing (e.g, echocardiogram, treadmill testing, nuclear scan) [ ]xiii) Chronic renal insufficiency (ie, estimated GFR less than 60 mL/min/1.732m) [ ]xiv) Left ventricular ejection fraction less than 40% [ ]IV. Evidence of NM (eg, cardiac biomarkers positive, ST-segment elevation on ECG) also use Myocardial Infarction Criteria Form. [ ]V. Pulmonary edema [ ]. Respiratory distress [ ]VII. Chest pain indicative of serious diagnosis other than coronary artery disease (eg, aortic dissection) [ ]VIII. Contraindications and/or Inappropriate clinical situations for Observational Care in patients with Chest Pain, when ANY ONE of the following is required: [ ]a) Patient with risk factor for pulmonary embolism, acute coronary syndrome and myocardial infarction (18) [ ]b) Patient with Pulmonary embolism require an average LOS of 4.3 days, therefore emergency department observation management is inappropriate 18,23 [ ]c) Painful condition/s in the elderly, have the highest rate of recidivism after emergency department observation management (10.8%) 20,21,22 [ ]d) Elevated cardiac biomarker requires intensive and exhaustive care (19) [ ]IX. General contraindications and/or Inappropriate clinical situations for Observational Care in patients with Chest Pain, when ANY ONE of the following is required: [ ]a) Prediction of prolongation of LOS based on ANY ONE of the following may be considered as a contraindication for observational care 2, 3, 4, 5, 6, 7, 8, 9, 10, 11 [ ]i) Age > 65 yrs. [ ]ii) Patient arriving by ambulance [ ]iii) Patient with high acuity [ ]iv) Patient requiring vital sign monitoring [ ]v) Patient on IV medication [ ]b) Systolic blood pressures 180mmHg 3,12 [ ]c) Patient with altered mental status including delirium and other alteration of consciousness, (3) [ ]d) Patient whose discharge disposition will be to a halfway home or rehabilitation home should not be managed in Emergency Department Observation Unit. CMS rule requires 3 days hospital stay before such placement. 3,13 [ ]e) Patient with failure to thrive due to broad array of etiologies 3,16,17 [ ]f) Inability to ambulate 3,14 Extended stay beyond goal length of stay may be needed for (1)(28): [ ]a) Specific condition diagnosed after evaluation (eg, pulmonary embolism, aortic dissection) [ ]b) Unstable angina [ ]c) Continued suspicion of acute coronary syndrome with inability to complete needed cardiac evaluation (eg, patient clinically unable to undergo stress testing) [ ]d) Myocardial infarction (Contents from ANGINA and CHEST PAIN clinical indications for admission to inpatient care have been integrated in this form) The original [employer] content created by [employer] has been revised. The portions of the content which have been revised are identified through the use of italic text or in bold, and [facility] has neither reviewed nor approved the modified material. All other unmodified content is copyright [employer]. Please see references footnoted in the original [facility] edition 2016 Admission Criteria Met?: Yes ILA ANDERSON July 27, 2016 10:29
[2016-07-27 11:00] VITALS: BP 137/82
[2016-07-27 11:04] VITALS: BP 136/97
--- NOTE | 2016-07-27 14:15 | PDOC ---
[facility] NURSE 07/27/16 1415: CARDIO Progress Notes Date and Time Date of Service 07/27/2016 Time of Evaluation 1400 Subjective Subjective: No shortness of breath, No Palpitations, No Dizziness, Other Comments: CP awakened him from sleep ~ 0600; took SL NTG X 2 without change in sympt Vitals Vitals Vital Signs Date Time Temp Pulse Resp B/P (MAP) Pulse Ox O2 Delivery O2 Flow Rate FiO2 07/27/16 11:04 97.0 108 136/97 (110) 96 97.0 07/27/16 11:00 22 Room Air Weight Weight [ ] Laboratory Labs Laboratory Tests Test 07/27/16 08:06 White Blood Count 4.8 x10^3/uL (4.0-11.0) Red Blood Count 4.39 x10^6/uL (4.30-5.70) Hemoglobin 12.0 g/dL (13.0-17.5) Hematocrit 37.3 % (39.0-53.0) Mean Corpuscular Volume 85 fL (79-100) Mean Corpuscular Hemoglobin 28 pg (25-35) Mean Corpuscular Hemoglobin Concent 32 g/dL (31-37) Red Cell Distribution Width 21.1 % (11.5-14.5) Platelet Count 113 x10^3/uL (140-400) Neutrophils (%) (Auto) 65 % (31-73) Lymphocytes (%) (Auto) 23 % (24-48) Monocytes (%) (Auto) 10 % (0-9) Eosinophils (%) (Auto) 1 % (0-3) Basophils (%) (Auto) 1 % (0-3) Neutrophils # (Auto) 3.1 x10^3uL (1.8-7.7) Lymphocytes # (Auto) 1.1 x10^3/uL (1.0-4.8) Monocytes # (Auto) 0.5 x10^3/uL (0.0-1.1) Eosinophils # (Auto) 0.1 x10^3/uL (0.0-0.7) Basophils # (Auto) 0.0 x10^3/uL (0.0-0.2) Prothrombin Time 15.7 SEC (11.7-14.0) Prothromb Time International Ratio 1.3 (0.8-1.1) Activated Partial Thromboplast Time 33 SEC (24-38) Sodium Level 138 mmol/L (136-145) Potassium Level 3.5 mmol/L (3.5-5.1) Chloride Level 104 mmol/L (98-107) Carbon Dioxide Level 27 mmol/L (21-32) Anion Gap 7 (6-14) Blood Urea Nitrogen 7 mg/dL (8-26) Creatinine 0.9 mg/dL (0.7-1.3) Estimated GFR (Cockcroft-Gault) 90.4 BUN/Creatinine Ratio 8 (6-20) Glucose Level 100 mg/dL (70-99) Calcium Level 8.6 mg/dL (8.5-10.1) Magnesium Level 2.0 mg/dL (1.8-2.4) Total Bilirubin 1.1 mg/dL (0.2-1.0) Aspartate Amino Transf (AST/SGOT) 20 U/L (15-37) Alanine Aminotransferase (ALT/SGPT) 20 U/L (16-63) Alkaline Phosphatase 104 U/L (46-116) Creatine Kinase 31 U/L (39-308) Troponin I Quantitative 0.055 ng/mL (0.000-0.055) MT-Rzl-A-Type Natriuretic Peptide 3439 pg/mL (0-124) Total Protein 7.7 g/dL (6.4-8.2) Albumin 3.1 g/dL (3.4-5.0) Albumin/Globulin Ratio 0.7 (1.0-1.7) Lipase 122 U/L (73-393) Ethyl Alcohol Level < 10 mg/dL (0-10) Physical Exam HEENT: Neck Supple W Full Motion Chest: Symmetric LUNGS: Clear to Auscultation Heart: S1S2, RRR, no murmurs, other (pain reproducible with palpation of sternum) Abdomen: Other (truncal obesity) Extremities: Other (1+ bilateral LE edema) Neurology: alert, oriented, follow commands Assessment Assessment CONTINUATION OF CARE NOTE - SEE DETAILED CARDIOLOGY CONSULT NOTE OF 07/22/2106 1. Chest pain, atypical, musculoskeletal no acute changes in EKG and unchanged from last week initial troponin level not consistent with ACS MPI 04/2016 with mostly fixed anterior and apical defect; depressed LV function 18-25% dependent on study echo 04/2016 without significant valvular disease requesting narcotic pain meds - I declined to provide for this pt. 2. known CAD with CABG X 6; 2014 also multiple PCI/stents prior to CABG continue secondary prevention 3. ischemic CMP with LVEF depressed 18-25% has [facility] ICD for prevention of SCD continue medical management 4. chronic systolic HF NT-pro BNP mildly elevated - admits to noncompliance with Na and fluid restriction 5. ? of atrial fib 6. morbid obesity 7. 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 Agree with FORENSIC DOCUMENT EXAMINER's assessment and plan. Chest pain with atypical features and most probably musculoskeletal. Recent stress test did not show any significant ischemia. Chronic systolic heart failure clinically well compensated. No further cardiac workup is indicated at this time. Continue current medical regimen. Okay for discharge from cardiac standpoint. BON COTO APRN July 27, 2016 14:15 ADITYA MELARA MD July 28, 2016 09:15
--- NOTE | 2016-07-27 14:26 | PDOC1 ---
History and Physical Date of Admission Date of Admission DATE: 07/27/16 TIME: 14:24 Identification/Chief Complaint Chief Complaint chestpain Problems: Source Source: Chart review, Patient History of Present Illness History of Present Illness presented to ER with chest pain, ongoing pain with pain crises, Angina with any exertion, cannot walk without pressure and chest pain. Seems deconditioned , also off pain meds, and reports his pain is out of control, Pain 9/10, for the past week, unable to do anything, pain limits, Past Medical History Cardiovascular: AFIB, CAD, CHF, HTN, CA, Hyperlipidemia, Other Pulmonary: Other CENTRAL NERVOUS SYSTEM: Periperal neuropathy GI: GERD Heme/Onc: No pertinent hx Hepatobiliary: No pertinent hx Psych: Anxiety Musculoskeletal: low back pain, Osteoarthritis, Other Rheumatologic: No pertinent hx Infectious disease: No pertinent hx Renal/: Chronic renal insuff, Other Endocrine: No pertinent hx Past Surgical History Past Surgical History: Pacemaker, Cholecystectomy, CABG, Total knee replacement , Tonsillectomy, Other Family History Family History: Coronary Artery Disease Social History ALCOHOL: none Drugs: None Current Problem List Problem List Problems Medical Problems: (1) Chest pain Status: Acute (2) Elevated brain natriuretic peptide (BNP) level Status: Acute Problems: Current Medications Current Medications Current Medications Morphine Sulfate 5 mg 1X ONCE IV Last administered on 07/27/16 08:54; Start 07/27/16 at 08:00; Stop 07/27/16 at 08:01; Status DC Nitroglycerin (Nitrostat) 0.4 mg PRN Q5MIN PRN SL CHEST PAIN Last administered on 07/27/16 08:39; Start 07/27/16 at 08:00 Ondansetron HCl (Zofran) 4 mg PRN Q8HRS PRN IV NAUSEA/VOMITING; Start 07/27/16 at 09:00; Stop 07/28/16 at 08:59 Active Scripts Active Lidoderm (Lidocaine) 700 Mg Adh..patch 1 Patch TP DAILY Reported Zofran (Ondansetron Hcl) 4 Mg Tablet 1 Tab PO Q8HRS PRN Fish Oil 1,000 Mg Capsule ([place]-3 Fatty Acids/Fish Oil) 1 Each Capsule 1 Each PO DAILY [Ntroglycerin [place]] PRN PRN Lisinopril 10 Mg Tablet 1 Tab PO DAILYWLUN Isosorbide Mononitrate Er (Isosorbide Mononitrate) 60 Mg Tab.er.24h 1 Tab PO DAILY Crestor (Rosuvastatin Calcium) 40 Mg Tablet 1 Tab PO QHS Furosemide 40 Mg Tablet 1 Tab PO BID Aspir 81 (Aspirin) 81 Mg Tablet.dr 1 Tab PO DAILY Zetia (Ezetimibe) 10 Mg Tablet 10 Mg PO HS Flonase Allergy Relief (Fluticasone Propionate) 9.9 Ml [place].susp 2 Sprays NS DAILY PRN Opana (Oxymorphone Hcl) 10 Mg Tablet 10 Mg PO QID PRN Opana Er (Oxymorphone Hcl) 40 Mg Tab.er.12h 40 Mg PO QID Niaspan (Niacin) 500 Mg Tab.er.24h 1 Tab PO QHS Esomeprazole Capsule (Esomeprazole Strontium) 40 Mg Capsule.dr 40 Mg PO DAILYAC Diazepam 2 Mg Tablet 2 Mg PO PRN Q4-6HRS PRN Coreg (Carvedilol) 25 Mg Tablet 1 Tab PO BID Allergies Allergies: Coded Allergies: buprenorphine (Verified Allergy, Severe, Anaphylaxis, 07/22/16) naloxone (Verified Allergy, Severe, Anaphylaxis, 07/22/16) Penicillins (Verified Allergy, Intermediate, RESPIRATORY DISTRESS,HIVES, ) ROS General: No: Chills, Night Sweats, Fatigue, Malaise, Appetite, Other PSYCHOLOGICAL ROS: No: Anxiety, Behavioral Disorder, Concentration difficultie , Decreased libido, Depression, Disorientation, Hallucinations, Hostility, Irritablity, Memory difficulties, Mood Swings, Obsessive thoughts, Physical abuse, Sexual abuse, Sleep disturbances, Suicidal ideation, Other Eyes: No Blurry vision, No Decreased vision, No Double vision, No Dry eyes, No Excessive tearing, No Eye Pain, No Itchy Eyes, No Loss of vision, No Photophobia , No Scotomata, No Uses contacts, No Uses glasses, No Other Cardiovascular: yes Chest Pain, No Palpitations, No Orthopnea, No Paroxysmal Noc. Dyspnea, No Edema, No Lt Headedness, No Other Gastrointestinal: Yes Nausea, Yes Diarrhea, No Vomiting, No Abdominal Pain, No Constipation, No Melena, No Hematochezia, No Other Genitourinary: No Dysuria, No Frequency, No Incontinence, No Hematuria, No Retention, No Discharge, No Urgency, No Pain, No Flank Pain, No Other, No , No , No , No , No , No , No Musculoskeletal: Yes Joint Pain Neurological: Yes Headaches, No Behavorial Changes, No Bowel/Bladder ControlChng, No Confusion, No Dizziness, No Gait Disturbance, No Impaired Coord/balance, No Memory Loss, No Numbness/Tingling, No Seizures, No Speech Problems, No Tremors, No Visual Changes, No Weakness, No Other Skin: No Dry Skin, No Eczema, No Hair Changes, No Lumps, No Mole Changes, No Mottling, No Nail Changes, No Pruritus, No Rash, No Skin Lesion Changes, No Other, No Acne Physical Exam General: Alert, Oriented X3, Cooperative HEENT: Atraumatic, PERRLA Lungs: Clear to auscultation Abdomen: Normal bowel sounds, Soft Extremities: No clubbing, Other (1+ [place], some wrinkling of skin) Skin: No breakdown Neuro: Normal gait, Normal speech, Normal tone, Sensation intact Psych/Mental Status: Mood NL Vitals Vitals Vital Signs Date Time Temp Pulse Resp B/P (MAP) Pulse Ox O2 Delivery O2 Flow Rate FiO2 07/27/16 11:04 97.0 108 136/97 (110) 96 97.0 07/27/16 11:00 22 Room Air Labs Labs Laboratory Tests Test 07/27/16 08:06 White Blood Count 4.8 x10^3/uL (4.0-11.0) Red Blood Count 4.39 x10^6/uL (4.30-5.70) Hemoglobin 12.0 g/dL (13.0-17.5) Hematocrit 37.3 % (39.0-53.0) Mean Corpuscular Volume 85 fL (79-100) Mean Corpuscular Hemoglobin 28 pg (25-35) Mean Corpuscular Hemoglobin Concent 32 g/dL (31-37) Red Cell Distribution Width 21.1 % (11.5-14.5) Platelet Count 113 x10^3/uL (140-400) Neutrophils (%) (Auto) 65 % (31-73) Lymphocytes (%) (Auto) 23 % (24-48) Monocytes (%) (Auto) 10 % (0-9) Eosinophils (%) (Auto) 1 % (0-3) Basophils (%) (Auto) 1 % (0-3) Neutrophils # (Auto) 3.1 x10^3uL (1.8-7.7) Lymphocytes # (Auto) 1.1 x10^3/uL (1.0-4.8) Monocytes # (Auto) 0.5 x10^3/uL (0.0-1.1) Eosinophils # (Auto) 0.1 x10^3/uL (0.0-0.7) Basophils # (Auto) 0.0 x10^3/uL (0.0-0.2) Prothrombin Time 15.7 SEC (11.7-14.0) Prothromb Time International Ratio 1.3 (0.8-1.1) Activated Partial Thromboplast Time 33 SEC (24-38) Sodium Level 138 mmol/L (136-145) Potassium Level 3.5 mmol/L (3.5-5.1) Chloride Level 104 mmol/L (98-107) Carbon Dioxide Level 27 mmol/L (21-32) Anion Gap 7 (6-14) Blood Urea Nitrogen 7 mg/dL (8-26) Creatinine 0.9 mg/dL (0.7-1.3) Estimated GFR (Cockcroft-Gault) 90.4 BUN/Creatinine Ratio 8 (6-20) Glucose Level 100 mg/dL (70-99) Calcium Level 8.6 mg/dL (8.5-10.1) Magnesium Level 2.0 mg/dL (1.8-2.4) Total Bilirubin 1.1 mg/dL (0.2-1.0) Aspartate Amino Transf (AST/SGOT) 20 U/L (15-37) Alanine Aminotransferase (ALT/SGPT) 20 U/L (16-63) Alkaline Phosphatase 104 U/L (46-116) Creatine Kinase 31 U/L (39-308) Troponin I Quantitative 0.055 ng/mL (0.000-0.055) SA-Tiu-W-Type Natriuretic Peptide 3439 pg/mL (0-124) Total Protein 7.7 g/dL (6.4-8.2) Albumin 3.1 g/dL (3.4-5.0) Albumin/Globulin Ratio 0.7 (1.0-1.7) Lipase 122 U/L (73-393) Ethyl Alcohol Level < 10 mg/dL (0-10) Laboratory Tests Test 07/27/16 08:06 White Blood Count 4.8 x10^3/uL (4.0-11.0) Red Blood Count 4.39 x10^6/uL (4.30-5.70) Hemoglobin 12.0 g/dL (13.0-17.5) Hematocrit 37.3 % (39.0-53.0) Mean Corpuscular Volume 85 fL (79-100) Mean Corpuscular Hemoglobin 28 pg (25-35) Mean Corpuscular Hemoglobin Concent 32 g/dL (31-37) Red Cell Distribution Width 21.1 % (11.5-14.5) Platelet Count 113 x10^3/uL (140-400) Neutrophils (%) (Auto) 65 % (31-73) Lymphocytes (%) (Auto) 23 % (24-48) Monocytes (%) (Auto) 10 % (0-9) Eosinophils (%) (Auto) 1 % (0-3) Basophils (%) (Auto) 1 % (0-3) Neutrophils # (Auto) 3.1 x10^3uL (1.8-7.7) Lymphocytes # (Auto) 1.1 x10^3/uL (1.0-4.8) Monocytes # (Auto) 0.5 x10^3/uL (0.0-1.1) Eosinophils # (Auto) 0.1 x10^3/uL (0.0-0.7) Basophils # (Auto) 0.0 x10^3/uL (0.0-0.2) Prothrombin Time 15.7 SEC (11.7-14.0) Prothromb Time International Ratio 1.3 (0.8-1.1) Activated Partial Thromboplast Time 33 SEC (24-38) Sodium Level 138 mmol/L (136-145) Potassium Level 3.5 mmol/L (3.5-5.1) Chloride Level 104 mmol/L (98-107) Carbon Dioxide Level 27 mmol/L (21-32) Anion Gap 7 (6-14) Blood Urea Nitrogen 7 mg/dL (8-26) Creatinine 0.9 mg/dL (0.7-1.3) Estimated GFR (Cockcroft-Gault) 90.4 BUN/Creatinine Ratio 8 (6-20) Glucose Level 100 mg/dL (70-99) Calcium Level 8.6 mg/dL (8.5-10.1) Magnesium Level 2.0 mg/dL (1.8-2.4) Total Bilirubin 1.1 mg/dL (0.2-1.0) Aspartate Amino Transf (AST/SGOT) 20 U/L (15-37) Alanine Aminotransferase (ALT/SGPT) 20 U/L (16-63) Alkaline Phosphatase 104 U/L (46-116) Creatine Kinase 31 U/L (39-308) Troponin I Quantitative 0.055 ng/mL (0.000-0.055) YV-Nth-L-Type Natriuretic Peptide 3439 pg/mL (0-124) Total Protein 7.7 g/dL (6.4-8.2) Albumin 3.1 g/dL (3.4-5.0) Albumin/Globulin Ratio 0.7 (1.0-1.7) Lipase 122 U/L (73-393) Ethyl Alcohol Level < 10 mg/dL (0-10) VTE Prophylaxis Ordered VTE Prophylaxis Devices: No VTE Pharmacological Prophylaxi: Yes Assessment/Plan Assessment/Plan 1. Chest pain, musculoskeletal, chostochrondritis pain crisis from opioid withdrawl narcotic dependence, try to wean would refer to suboxone clinic 2. known CAD with CABG X ; 2014 and stents prior 3. chronic systolic CHF EF 20%, cont managemen w/ ischemic CM 3. morbid obesity, BMI 46 JAMIA FERNÁNDEZ MD July 27, 2016 14:26
[2016-07-27 15:00] VITALS: BP 136/51
[2016-07-27] MEDS: MORPHINE ER 15 MG TABLET.ER PO SCH (16:17)
[2016-07-27 19:24] VITALS: BP 130/80
[2016-07-27] MEDS: IBUPROFEN 600 MG TABLET. PO SCH (20:06)
[2016-07-27 23:44] VITALS: BP 146/100
[2016-07-28] MEDS ORDERED: diazePAM 2 MG TABLET PO PRN
[2016-07-28] MEDS ORDERED: ONDANSETRON ODT 4 MG TAB.RAPDIS. PO PRN (00:15)
[2016-07-28 03:00] VITALS: BP 120/90
[2016-07-28] MEDS: MORPHINE ER 15 MG TABLET.ER PO SCH ×2 (03:32→15:56)
[2016-07-28] MEDS: IBUPROFEN 600 MG TABLET. PO SCH ×2 (03:32→11:50)
[2016-07-28 03:38] LABS: BASO % 1 % (0-3); EOS % 2 % (0-3); HEMATOCRIT 34.4 % (39.0-53.0); HEMOGLOBIN 11.4 g/dL (13.0-17.5); LYMPH % 26 % (24-48); MEAN CORPUSCULAR HEMOGLOBIN 28 pg (25-35); MEAN CORPUSCULAR HGB CONC 33 g/dL (31-37); MEAN CORPUSCULAR VOLUME 83 fL (79-100); MONO % 10 % (0-9); NEUT % 62 % (31-73); PLATELET COUNT 96 x10^3/uL (140-400); RED BLOOD COUNT 4.16 x10^6/uL (4.30-5.70); RED CELL DISTRIBUTION WIDTH 20.9 % (11.5-14.5); WHITE BLOOD COUNT 3.9 x10^3/uL (4.0-11.0)
[2016-07-28 03:50] LABS: CALCIUM 8.7 mg/dL (8.5-10.1); GFR 80.1; POTASSIUM 3.4 mmol/L (3.5-5.1)
[2016-07-28 07:00] VITALS: BP 157/91
[2016-07-28] MEDS ORDERED: PANTOPRAZOLE 40 MG TABLET.DR. PO SCH (07:30)
[2016-07-28] MEDS ORDERED: CARVEDILOL 12.5 MG TABLET. PO SCH (08:00)
[2016-07-28] MEDS: FUROSEMIDE 40 MG TABLET. PO SCH ×2 (08:02→16:00)
[2016-07-28] MEDS ORDERED: ASPIRIN ENTERIC COATED 81 MG TABLET.DR. PO SCH (09:00)
[2016-07-28] MEDS ORDERED: LIDOCAINE (700MG/PATCH) PATCH. TP SCH (09:00)
[2016-07-28] MEDS ORDERED: FLUTICASONE 50MCG/NASAL SPRAY 16GM BOTTLE. NS SCH (09:00)
[2016-07-28] MEDS ORDERED: ISOSORBIDE MONONITRATE ER 30 MG TAB.ER.24H PO SCH (09:00)
[2016-07-28] MEDS ORDERED: OMEGA-3 FATTY ACIDS/FISH OIL 1,000 MG CAPSULE. PO SCH (09:00)
[2016-07-28 11:00] VITALS: BP 111/69
--- NOTE | 2016-07-28 11:46 | PDOC3 ---
Discharge Summary Visit Information Date of Admission: July 27, 2016 Date of Discharge: July 28, 2016 Admitting Diagnosis Comment: 1. Chest pain, atypical, musculoskeletal 2. known CAD with CABG X ; 2015 also multiple PCI/stents prior to CABG continue secondary prevention 3. ischemic CMP with LVEF depressed 18-25% has [facility] ICD for prevention of SCD 4. chronic systolic HF 5. ? of atrial fib 6. morbid obesity 7. narcotic dependence chronic back pain drug seeking behavior Final Diagnosis Problems Medical Problems: (1) Chest pain Status: Acute (2) Elevated brain natriuretic peptide (BNP) level Status: Acute Brief Hospital Course Allergies Allergies Coded Allergies Type Severity Reaction Last Updated Verified buprenorphine Allergy Severe Anaphylaxis 07/22/16 Yes naloxone Allergy Severe Anaphylaxis 07/22/16 Yes Penicillins Allergy Intermediate RESPIRATORY DISTRESS,HIVES 05/09/16 Yes Vital Signs Vital Signs Date Time Temp Pulse Resp B/P (MAP) Pulse Ox O2 Delivery O2 Flow Rate FiO2 07/28/16 11:00 97.5 77 20 111/69 (83) 94 Room Air 97.5 Lab Results Laboratory Tests Test 07/27/16 08:06 07/27/16 15:00 07/27/16 20:45 07/28/16 03:00 White Blood Count 4.8 x10^3/uL (4.0-11.0) 3.9 x10^3/uL (4.0-11.0) Red Blood Count 4.39 x10^6/uL (4.30-5.70) 4.16 x10^6/uL (4.30-5.70) Hemoglobin 12.0 g/dL (13.0-17.5) 11.4 g/dL (13.0-17.5) Hematocrit 37.3 % (39.0-53.0) 34.4 % (39.0-53.0) Mean Corpuscular Volume 85 fL (79-100) 83 fL (79-100) Mean Corpuscular Hemoglobin 28 pg (25-35) 28 pg (25-35) Mean Corpuscular Hemoglobin Concent 32 g/dL (31-37) 33 g/dL (31-37) Red Cell Distribution Width 21.1 % (11.5-14.5) 20.9 % (11.5-14.5) Platelet Count 113 x10^3/uL (140-400) 96 x10^3/uL (140-400) Neutrophils (%) (Auto) 65 % (31-73) 62 % (31-73) Lymphocytes (%) (Auto) 23 % (24-48) 26 % (24-48) Monocytes (%) (Auto) 10 % (0-9) 10 % (0-9) Eosinophils (%) (Auto) 1 % (0-3) 2 % (0-3) Basophils (%) (Auto) 1 % (0-3) 1 % (0-3) Neutrophils # (Auto) 3.1 x10^3uL (1.8-7.7) 2.4 x10^3uL (1.8-7.7) Lymphocytes # (Auto) 1.1 x10^3/uL (1.0-4.8) 1.0 x10^3/uL (1.0-4.8) Monocytes # (Auto) 0.5 x10^3/uL (0.0-1.1) 0.4 x10^3/uL (0.0-1.1) Eosinophils # (Auto) 0.1 x10^3/uL (0.0-0.7) 0.1 x10^3/uL (0.0-0.7) Basophils # (Auto) 0.0 x10^3/uL (0.0-0.2) 0.0 x10^3/uL (0.0-0.2) Prothrombin Time 15.7 SEC (11.7-14.0) Prothromb Time International Ratio 1.3 (0.8-1.1) Activated Partial Thromboplast Time 33 SEC (24-38) Sodium Level 138 mmol/L (136-145) 139 mmol/L (136-145) Potassium Level 3.5 mmol/L (3.5-5.1) 3.4 mmol/L (3.5-5.1) Chloride Level 104 mmol/L (98-107) 104 mmol/L (98-107) Carbon Dioxide Level 27 mmol/L (21-32) 25 mmol/L (21-32) Anion Gap 7 (6-14) 10 (6-14) Blood Urea Nitrogen 7 mg/dL (8-26) 10 mg/dL (8-26) Creatinine 0.9 mg/dL (0.7-1.3) 1.0 mg/dL (0.7-1.3) Estimated GFR (Cockcroft-Gault) 90.4 80.1 BUN/Creatinine Ratio 8 (6-20) Glucose Level 100 mg/dL (70-99) 141 mg/dL (70-99) Calcium Level 8.6 mg/dL (8.5-10.1) 8.7 mg/dL (8.5-10.1) Magnesium Level 2.0 mg/dL (1.8-2.4) Total Bilirubin 1.1 mg/dL (0.2-1.0) Aspartate Amino Transf (AST/SGOT) 20 U/L (15-37) Alanine Aminotransferase (ALT/SGPT) 20 U/L (16-63) Alkaline Phosphatase 104 U/L (46-116) Creatine Kinase 31 U/L (39-308) Troponin I Quantitative 0.055 ng/mL (0.000-0.055) 0.052 ng/mL (0.000-0.055) 0.058 ng/mL (0.000-0.055) 0.051 ng/mL (0.000-0.055) WI-Uys-Y-Type Natriuretic Peptide 3439 pg/mL (0-124) Total Protein 7.7 g/dL (6.4-8.2) Albumin 3.1 g/dL (3.4-5.0) Albumin/Globulin Ratio 0.7 (1.0-1.7) Lipase 122 U/L (73-393) Ethyl Alcohol Level < 10 mg/dL (0-10) Laboratory Tests Test 07/27/16 15:00 07/27/16 20:45 07/28/16 03:00 Troponin I Quantitative 0.052 ng/mL (0.000-0.055) 0.058 ng/mL (0.000-0.055) 0.051 ng/mL (0.000-0.055) White Blood Count 3.9 x10^3/uL (4.0-11.0) Red Blood Count 4.16 x10^6/uL (4.30-5.70) Hemoglobin 11.4 g/dL (13.0-17.5) Hematocrit 34.4 % (39.0-53.0) Mean Corpuscular Volume 83 fL (79-100) Mean Corpuscular Hemoglobin 28 pg (25-35) Mean Corpuscular Hemoglobin Concent 33 g/dL (31-37) Red Cell Distribution Width 20.9 % (11.5-14.5) Platelet Count 96 x10^3/uL (140-400) Neutrophils (%) (Auto) 62 % (31-73) Lymphocytes (%) (Auto) 26 % (24-48) Monocytes (%) (Auto) 10 % (0-9) Eosinophils (%) (Auto) 2 % (0-3) Basophils (%) (Auto) 1 % (0-3) Neutrophils # (Auto) 2.4 x10^3uL (1.8-7.7) Lymphocytes # (Auto) 1.0 x10^3/uL (1.0-4.8) Monocytes # (Auto) 0.4 x10^3/uL (0.0-1.1) Eosinophils # (Auto) 0.1 x10^3/uL (0.0-0.7) Basophils # (Auto) 0.0 x10^3/uL (0.0-0.2) Sodium Level 139 mmol/L (136-145) Potassium Level 3.4 mmol/L (3.5-5.1) Chloride Level 104 mmol/L (98-107) Carbon Dioxide Level 25 mmol/L (21-32) Anion Gap 10 (6-14) Blood Urea Nitrogen 10 mg/dL (8-26) Creatinine 1.0 mg/dL (0.7-1.3) Estimated GFR (Cockcroft-Gault) 80.1 Glucose Level 141 mg/dL (70-99) Calcium Level 8.7 mg/dL (8.5-10.1) Brief Hospital Course Mr. Kiser is a 45 old male, melissa wallace apparently narc seeking behavior, Admitted for "CP", Known to cards service, does have cardiac hx but just ahd a recent cardiac work up which was neg, Stayed overnight, will go home today on same cardiac meds. Did have a long discussion about his narcs, was being seen by pain mx, PCP, [facility] etc for his narcs, Lost/transferred insurance, PCP retired etc, HAs been on narcs x 30 yrs, trying to get off, On MS contin 15 BID and valium 5 mg PO q 8 prn DispO; home NO change in meds COnsults: cards Proc : none Rx provided for 2 narcs, few pills time 35 mins > 60% counselling Discharge Information Condition at Discharge: Improved, Stable Disposition/Orders: D/C to Home Scheduled Aspirin (Aspir 81), 1 TAB PO DAILY, (Reported) Carvedilol (Coreg), 1 TAB PO BID, (Reported) Esomeprazole Strontium (Esomeprazole Capsule), 40 MG PO DAILYAC, (Reported) Ezetimibe (Zetia), 10 MG PO HS, (Reported) Furosemide (Furosemide), 1 TAB PO BID, (Reported) Isosorbide Mononitrate (Isosorbide Mononitrate Er), 1 TAB PO DAILY, (Reported) Lidocaine (Lidoderm), 1 PATCH TP DAILY Lisinopril (Lisinopril), 1 TAB PO DAILYWLUN, (Reported) Niacin (Niaspan), 1 TAB PO QHS, (Reported) [place]-3 Fatty Acids/Fish Oil (Fish Oil 1,000 Mg Capsule), 1 EACH PO DAILY, ( Reported) Oxymorphone Hcl (Opana Er), 40 MG PO QID, (Reported) Rosuvastatin Calcium (Crestor), 1 TAB PO QHS, (Reported) Scheduled PRN Diazepam (Diazepam), 2 MG PO PRN Q4-6HRS PRN for ANXIETY, (Reported) Fluticasone Propionate (Flonase Allergy Relief), 2 SPRAYS NS DAILY PRN for CONGESTION, (Reported) Ondansetron Hcl (Zofran), 1 TAB PO Q8HRS PRN for NAUSEA, (Reported) Oxymorphone Hcl (Opana), 10 MG PO QID PRN for PAIN, (Reported) [Ntroglycerin [place]], PRN PRN for SEE COMMENTS, (Reported) OLEG HARMON MD July 28, 2016 11:46
[2016-07-28] MEDS ORDERED: LISINOPRIL 10 MG TABLET PO SCH (12:00)
[2016-07-28 15:00] VITALS: BP 107/63
[2016-07-28] MEDS ORDERED: EZETIMIBE 10 MG TABLET. PO SCH (21:00)
[2016-07-28] MEDS ORDERED: ATORVASTATIN CALCIUM 40 MG TABLET. PO SCH (21:00)
[2016-07-28] MEDS ORDERED: NIACIN ER 500 MG TABLET.ER PO SCH (21:00)
== END 2016-07-28 16:00 | disposition home or self-care (01) | DRG 206 ==
LOC: ER 07:42 → 6 SOUTH 08:40
PROVIDERS: ADMIT Internal Medicine; ATTEND Internal Medicine
DX: M94.0 Chondrocostal junction syndrome [Tietze] (principal); Z68.42 Body mass index [BMI] 45.0-49.9, adult; I50.22 Chronic systolic (congestive) heart failure; F11.23 Opioid dependence with withdrawal; E78.5 Hyperlipidemia, unspecified; E78.00 Pure hypercholesterolemia, unspecified; E66.01 Morbid (severe) obesity due to excess calories; G89.29 Other chronic pain; I25.5 Ischemic cardiomyopathy; I11.0 Hypertensive heart disease with heart failure; F32.9 Major depressive disorder, single episode, unspecified; F41.9 Anxiety disorder, unspecified; G62.9 Polyneuropathy, unspecified; Z90.49 Acquired absence of other specified parts of digestive tract; I25.119 Atherosclerotic heart disease of native coronary artery with unspecified angina pectoris; M54.5 Low back pain; I48.91 Unspecified atrial fibrillation; Z96.659 Presence of unspecified artificial knee joint; M19.90 Unspecified osteoarthritis, unspecified site; K21.9 Gastro-esophageal reflux disease without esophagitis; Z76.5 Malingerer [conscious simulation]; Z82.49 Family history of ischemic heart disease and other diseases of the circulatory system; Z87.442 Personal history of urinary calculi; Z95.1 Presence of aortocoronary bypass graft; Z95.5 Presence of coronary angioplasty implant and graft; Z95.0 Presence of cardiac pacemaker; Z88.0 Allergy status to penicillin; Z88.8 Allergy status to other drugs, medicaments and biological substances
CPT/HCPCS: 36415; 71010; 80048; 80053; 82550; 83690; 83735; 83880; 84484; 85027; 85610; 85730; 93005; G0480; J2270; 99285-25

== ENCOUNTER 2016-08-09 04:08 | Inpatient (IN) | payer MEDICARE, MEDICAID ==
[~2016-08-09] VITALS: Ht 180.3 cm; Wt 162.5 kg
[2016-08-09] MEDS ORDERED: ALBUTEROL SULFATE 2.5 MG/3 ML NEBU. ONE (04:14)
[2016-08-09 04:27] LABS: BASO # 0.1 x10^3/uL (0.0-0.2); BASO % 1 % (0-3); EOS % 2 % (0-3); HEMATOCRIT 38.8 % (39.0-53.0); HEMOGLOBIN 12.3 g/dL (13.0-17.5); LYMPH # 1.1 x10^3/uL (1.0-4.8); LYMPH % 19 % (24-48); MEAN CORPUSCULAR HEMOGLOBIN 27 pg (25-35); MEAN CORPUSCULAR HGB CONC 32 g/dL (31-37); MEAN CORPUSCULAR VOLUME 85 fL (79-100); MONO % 10 % (0-9); NEUT % 67 % (31-73); PLATELET COUNT 107 x10^3/uL (140-400); RED BLOOD COUNT 4.55 x10^6/uL (4.30-5.70); RED CELL DISTRIBUTION WIDTH 20.1 % (11.5-14.5); WHITE BLOOD COUNT 5.6 x10^3/uL (4.0-11.0)
[2016-08-09] MEDS ORDERED: FUROSEMIDE 40 MG/4 ML VIAL. IVP ONE (04:30)
[2016-08-09] MEDS ORDERED: ALBUTEROL SULFATE 2.5 MG/3 ML NEBU. NEB ONE (04:30)
--- NOTE | 2016-08-09 04:31 | PHYS DOC ---
Past Medical History Past Medical History: A-Fib, Anxiety, CHF, Depression, GERD, High Cholesterol, Hypertension, Kidney Stone, HI Additional Past Medical Histor: CHRONIC PAIN, bone graft and muscle graft Past Surgical History: Cholecystectomy, Coronary Bypass Surgery, Knee Replacement, Pacemaker, Tonsillectomy, Other Additional Past Surgical Histo: cardiac stents(6), LEFT FEMUR SURGERY, karsten R femur, skin graft, LITHOTRIPSY Alcohol Use: None Drug Use: None Adult General Chief Complaint Chief Complaint: SHORTNESS OF BREATH HPI HPI Patient is a 45 year old male who presents with complaint of shortness breath and chest pain. Patient states that his shortness of breath started approximately 3 hours ago and woke him up from sleep. Patient started to develop chest pain in the middle of his chest that radiates towards the right side of his neck which she states started approximately 1 hour prior to arrival. Patient called EMS and was brought to the emergency department for further evaluation. EMS treated the patient with albuterol and 324 mg of aspirin prior to arrival. Patient has history of coronary artery disease status post cardiac bypass surgery, CHF, and pacemaker placement. Patient follows at [facility] for his primary care and cardiology care. Patient denies any fevers, nausea, vomiting, or abdominal pain. Patient does admit to increased swelling in the lower extremities over the past few days. Review of Systems Review of Systems Constitutional: Denies fever or chills [] Eyes: Denies change in visual acuity, redness, or eye pain [] HENT: Denies nasal congestion or sore throat [] Respiratory: Shortness of breath [] Cardiovascular: Chest pain, edema [] GI: Denies abdominal pain, nausea, vomiting, bloody stools or diarrhea [] : Denies dysuria or hematuria [] Musculoskeletal: Denies back pain or joint pain [] Integument: Denies rash or skin lesions [] Neurologic: Denies headache, focal weakness or sensory changes [] Current Medications Current Medications Current Medications Medications (Trade) Dose Ordered Sig/Frank Start Time Stop Time Status Last Admin Dose Admin Albuterol Sulfate (Ventolin Neb Soln) 2.5 mg 1X ONCE 08/09/16 04:30 08/09/16 04:31 DC 08/09/16 04:19 2.5 MG Furosemide (Lasix) 60 mg 1X ONCE 08/09/16 04:30 08/09/16 04:31 DC 08/09/16 04:29 60 MG Allergies Allergies Allergies Coded Allergies Type Severity Reaction Last Updated Verified buprenorphine Allergy Severe Anaphylaxis 07/22/16 Yes naloxone Allergy Severe Anaphylaxis 07/22/16 Yes Penicillins Allergy Intermediate RESPIRATORY DISTRESS,HIVES 05/09/16 Yes Physical Exam Physical Exam Constitutional: Alert, afebrile, appears in moderate respiratory distress. [] HENT: Normocephalic, atraumatic, bilateral external ears normal, oropharynx moist, no oral exudates, nose normal. [] Eyes: PERRLA, EOMI, conjunctiva normal, no discharge. [] Neck: Normal range of motion, no tenderness, supple, no stridor. [] Cardiovascular: Tachycardia, irregular rhythm, no murmurs or rubs present [] Lungs & Thorax: Moderate to severe restriction of air movement bilaterally, no wheezes, bilateral rales present [] Abdomen: Bowel sounds normal, protuberant but soft, no tenderness, no masses, no pulsatile masses. [] Skin: Warm, dry, no erythema, no rash. [] Back: No tenderness, no CVA tenderness. [] Extremities: No tenderness, no cyanosis, no clubbing, ROM intact, 3+ pitting edema in the bilateral lower extremities. [] Neurologic: Alert and oriented X 3, normal motor function, normal sensory function, no focal deficits noted. [] Current Patient Data Vital Signs Vital Signs Date Time Temp Pulse Resp B/P (MAP) Pulse Ox O2 Delivery O2 Flow Rate FiO2 08/09/16 04:17 97 Room Air 08/09/16 04:15 97.6 104 20 153/69 (97) 97.6 Lab Values Laboratory Tests Test 08/09/16 04:15 White Blood Count 5.6 x10^3/uL (4.0-11.0) Red Blood Count 4.55 x10^6/uL (4.30-5.70) Hemoglobin 12.3 g/dL (13.0-17.5) L Hematocrit 38.8 % (39.0-53.0) L Mean Corpuscular Volume 85 fL (79-100) Mean Corpuscular Hemoglobin 27 pg (25-35) Mean Corpuscular Hemoglobin Concent 32 g/dL (31-37) Red Cell Distribution Width 20.1 % (11.5-14.5) H Platelet Count 107 x10^3/uL (140-400) L Neutrophils (%) (Auto) 67 % (31-73) Lymphocytes (%) (Auto) 19 % (24-48) L Monocytes (%) (Auto) 10 % (0-9) H Eosinophils (%) (Auto) 2 % (0-3) Basophils (%) (Auto) 1 % (0-3) Neutrophils # (Auto) 3.8 x10^3uL (1.8-7.7) Lymphocytes # (Auto) 1.1 x10^3/uL (1.0-4.8) Monocytes # (Auto) 0.6 x10^3/uL (0.0-1.1) Eosinophils # (Auto) 0.1 x10^3/uL (0.0-0.7) Basophils # (Auto) 0.1 x10^3/uL (0.0-0.2) Platelet Estimate Pending Sodium Level 141 mmol/L (136-145) Potassium Level 4.2 mmol/L (3.5-5.1) Chloride Level 105 mmol/L (98-107) Carbon Dioxide Level 24 mmol/L (21-32) Anion Gap 12 (6-14) Blood Urea Nitrogen 14 mg/dL (8-26) Creatinine 1.0 mg/dL (0.7-1.3) Estimated GFR (Cockcroft-Gault) 80.1 BUN/Creatinine Ratio 14 (6-20) Glucose Level 116 mg/dL (70-99) H Calcium Level 8.9 mg/dL (8.5-10.1) Total Bilirubin 1.4 mg/dL (0.2-1.0) H Aspartate Amino Transferase (AST) 33 U/L (15-37) Alanine Aminotransferase (ALT) 23 U/L (16-63) Alkaline Phosphatase 142 U/L (46-116) H Creatine Kinase 71 U/L (39-308) Creatine Kinase MB (Mass) 0.9 ng/mL (0.0-3.6) Creatine Kinase MB Relative Index % (0-4) Troponin I Quantitative 0.030 ng/mL (0.000-0.055) PJ-Tpi-C-Type Natriuretic Peptide 1663 pg/mL (0-124) H Total Protein 7.7 g/dL (6.4-8.2) Albumin 3.3 g/dL (3.4-5.0) L Albumin/Globulin Ratio 0.8 (1.0-1.7) L Laboratory Tests 08/09/16 04:15 Laboratory Tests 08/09/16 04:15 EKG EKG Interpreted by me: Heart rate 109, atrial fibrillation, left axis deviation, no acute ST/T-wave abnormalities present [] Radiology/Procedures Radiology/Procedures One view AP chest x-ray interpreted by me: Right pleural effusion, cardiomegaly , no infiltrate [] Course & Med Decision Making Course & Med Decision Making Pertinent Labs and Imaging studies reviewed. (See chart for details) Patient was initially treated with 1 unit dose of albuterol. Patient's chest x- ray shows evidence of worsening congestive heart failure with right pleural effusion. Patient given 60 mg of IV Lasix. Patient continues to display mild to moderate increased work of breathing. The patient will require admission to the hospital for diuresis and rule out acute coronary syndrome given patient's chest pain symptoms. Patient noted to Dr. Santos. A consult was placed to Dr. Fitzpatrick of cardiology to follow with patient in hospital. Dragon Disclaimer Dragon Disclaimer This electronic medical record was generated, in whole or in part, using a voice recognition dictation system. Departure Departure Impression: Primary Impression: Acute on chronic congestive heart failure Additional Impression: Chest pain Disposition: ADMITTED INPATIENT Admitting Physician: Kiana Santos Condition: GUARDED Referrals: ANDREA FOX (PCP) Problem Qualifiers Primary Impression: Acute on chronic congestive heart failure Congestive heart failure type: unspecified congestive heart failure type Qualified Codes: I50.9 - Heart failure, unspecified Additional Impression: Chest pain Chest pain type: unspecified Qualified Codes: R07.9 - Chest pain, unspecified SHEILA ANDERSON MD August 09, 2016 04:31
[2016-08-09 04:40] LABS: CALCIUM 8.9 mg/dL (8.5-10.1); GFR 80.1; POTASSIUM 4.2 mmol/L (3.5-5.1)
[2016-08-09 04:59] LABS: ALBUMIN 3.3 g/dL (3.4-5.0); ALBUMIN/GLOBULIN RATIO 0.8 (1.0-1.7); TOTAL BILIRUBIN 1.4 mg/dL (0.2-1.0); TOTAL PROTEIN 7.7 g/dL (6.4-8.2)
--- NOTE | 2016-08-09 05:08 | ACF ---
Admission Forms Criteria CARDIOLOGY GRG Clinical Indications for Admission to Inpatient Care ( Place 'X' for any and all applicable criteria): Hospital admission is needed for appropriate care of the patient because of ANY ONE of the following (1): [ ] I. Hemodynamic instability as indicated by ALL of the following (1)(2)(3) (4)(5) [ ]a) Vital signs or other findings not as expected for chronic patient condition or baseline [ ]b) Instability indicated by ANY ONE of the following: [ ]i) Hypotension [ ]ii) Symptomatic Tachycardia unresponsive to treatment ( e.g., analgesia, fluids, sedation as indicated) [ ]iii) Inadequate perfusion indicated by ANY ONE of the following: [ ] 1) Lactic acidosis (> 2 mmol/L) [ ] 2) New abnormal capillary refill (> 3 seconds) [ ] 3) Reduced urine output [ ] 4) New altered mental status [ ]iv) Orthostatic vital sign changes unresponsive to treatment (e.g., fluids) [ ]v) IV inotropic or vasopressor medication required to maintain adequate blood pressure or perfusion [ ] II. Severe heart failure as indicated by ANY ONE of the following(17)(18) [ ]a) Respiratory distress [ ]b) Hypotension [ ]c) Anasarca (refractory to outpatient therapy) [ ]d) Cardiac arrhythmias of immediate concern [ ]e) Myocardial ischemia [ ] III. Cardiac arrhythmias or findings of immediate concern indicated by ANY ONE of the following (19)(20): [ ] a) Heart rhythms that are inherently dangerous or unstable indicated by ANY ONE of the following (21)(22)(23): [ ] i) Resuscitated ventricular fibrillation or cardiac arrest [ ] ii) Ventricular escape rhythm [ ] iii) Sustained ventricular tachycardia (30 seconds or more of ventricular rhythm at greater than 100 beats per minute) [ ] iv) Nonsustained ventricular tachycardia and ANY ONE of the following: [ ] 1) Suspected cardiac ischemia as cause or consequence of ventricular tachycardia [ ] 2) In setting of acute myocarditis [ ] b) Unstable cardiac conduction defects indicated by ANY ONE of the following(23)(24)(25) [ ] i) Type II second-degree atrioventricular block [ ]ii) Third-degree atrioventricular block [ ]iii) New-onset left bundle branch block with suspected myocardial ischemia [ ]c) Any heart rhythm and ANY ONE of the following (21)(22)(26)(27) (28) [ ] i) Continuous long-term ECG monitoring needed (e.g., initiation of drug requiring monitoring for more than 24 hours) [ ] ii) Patient has automatic implanted cardioverter defibrillator that is repeatedly firing, malfunctioning, or in need of immediate adjustment of settings beyond the scope of ambulatory or observation care [ ]d) Heart rhythms of concern due to ANY ONE of the following: [ ] i) Hypotension [ ] ii) Respiratory distress [ ] iii) Association with other significant symptoms (e.g., bradycardia with syncope or ongoing dizziness, supraventricular tachycardia with chest pain (14)(15)(17) [ ] IV. Monitoring for cardiac contusion beyond the scope of observation care needed [A](30)(31)(32) [ ] V. Surgical or device complication (e.g., valve replacement complication , pacemaker dysfunction) (35)(41)(44)(45)(46) [ ] . Inpatient palliative care needed. [B](49) Also use Inpatient Palliative Care Criteria [ ] VII. Nonbacterial thrombotic (marantic) endocarditis (36)(43)(47)(48) [ ] VIII. Cardiology condition, symptom, or finding for which emergency and observation care has failed or are not considered appropriate. [ ] IX. Acute valvular disease requiring inpatient as indicated by ANY ONE of the following (41) [ ]a) Acute valvular regurgitation (42) [ ]b) Noninfectious valvulitis (43) [ ]c) Obstructive valve thrombosis [ ]d) Paravalvular leak [ ]e) Other significant valvular disorder remaining after emergency or observation level of care (as appropriate) [ ]X. Pericardial disease requiring inpatient treatment as indicated by ANY ONE of the following (33)(34)(35)(36)(37) [ ]a) Suspected tamponade (38)(39)(40) [ ]b) Hemopericardium [ ]c) Other significant pericardial disorder remaining after emergency or observation level of care (as appropriate) [ ] XI. Cardiac ischemia beyond scope of emergency and observation care. [ ] XII. Hypertension requiring inpatient treatment as indicated by ANY ONE of the following (6)(7)(8) [ ]a) SBP greater than 220 mm Hg or DBP greater than 120 mmHg despite treatment [ ]b) SBP greater than 140 mm Hg or DBP greater than 100 mm Hg with evidence of acute end organ damage as indicated by ANY ONE of the following [ ] i) Encephalopathy [ ] ii) Acute renal failure as indicated by new onset of ANY ONE of the following (9)(10)(11)(12)(13) [ ]1) 3-fold rise in serum creatinine from baseline [ ]2) Serum creatinine greater than 4 mg/dL ( 354 micromoles/L) with acute rise greater than 0.5 mg/dL (44.2 micromoles/L) [ ]3) Reduction of more than 75% in estimated glomerular filtration rate from baseline [ ]4) Estimated glomerular filtration rate less than 35 mL/min/1.73m2 (0.59 mL/sec/1.73m2) in child up to 18 years of age [ ]5) Cessation of urine output indicated by ALL of the following [ ]A. Adequate volume status [ ]B. Inadequate urine output as indicated by ANY ONE of the following [ ]a. Urine output less than 0.3 mL/kg/hr for 24 hours [ ]b. Anuria (urine output less than 0.1 mL/kg/hr) for 12 hours [ ] iii) Aortic dissection [ ] iv) Myocardial Ischemia [ ] v) Left ventricular heart failure [ ]vi) Retinal Hemorrhage [ ]vii) Other significant finding [ ]c) Hypertension in child requiring inpatient treatment as indicated by ALL of the following(14)(15)(16) [ ] i) Outpatient treatment not effective, not available, or not appropriate [ ]ii) SBP or DBP greater than 95th percentile for age [ ]iii) Evidence of acute end organ damage as indicated by ANY ONE of the following [ ]1) Altered mental status [ ]2) Acute renal failure as indicated by new onset of ANY ONE of the following(9)(10)(11)(12)(13) [ ]A. 3-fold rise in serum creatinine from baseline [ ]B. Serum creatinine greater than 4 mg/dL (354 micromoles/L) with acute rise greater than 0.5 mg/dL (44.2 micromoles/L) [ ]C. Reduction of more than 75% in estimated glomerular filtration rate from baseline [ ]D. Estimated glomerular filtration rate less than 35 mL/min/1.73m2 (0.59 mL/sec/1.73m2) in child up to 18 years of age [ ]E. Cessation of urine output indicated by ALL of the following [ ]a. Adequate volume status [ ]b. Inadequate urine output as indicated by ANY ONE of the following [ ]i) Urine output less than 0.3 mL/kg/hr for 24 hours [ ]ii) Anuria ( urine output less than 0.1 mL/kg/hr) for 12 hours [ ]3) Severe headache [ ]4) Visual disturbance [ ]5) Retinal hemorrhage [ ]6) Other significant finding [ ]XIII. Complications of transplanted heart indicated by ANY ONE of the following(61): [ ]a) Acute graft rejection requiring inpatient management (eg, intravenous immunosuppression)(62)(63) [ ]b) Acute graft heart failure indicated by ANY ONE of the following(64): [ ]i) Hemodynamic instability [ ]ii) Cardiac arrhythmias of immediate concern [ ]iii) Pulmonary edema that is very severe (eg, mechanical ventilation needed, imminent or likely, need for 100% oxygen to keep oxygen saturation above 90%) [ ]iv) Pulmonary edema that is persistent as indicated by ALL of the following: [ ]1) New need for oxygen therapy to keep oxygen saturation above 90% (or increased FiO2 need from baseline) [ ]2) Has not improved sufficiently with emergency department or observation care IV diuretics or other heart failure treatments[E] [ ]v) Altered mental status that is severe or persistent [ ]vi) Increased creatinine (new on laboratory test) with reduction of more than 50% in estimated glomerular filtration rate from baseline [ ]vii) Progressively (ongoing) rising creatinine (known from past laboratory test) with reduction of more than 25% in estimated glomerular filtration rate from baseline [ ]viii) Acute renal failure [ ]ix) Acute peripheral ischemia (eg, examination shows pulseless, cool, mottled, or cyanotic extremity) [ ]x) Pulmonary artery catheter monitoring needed [ ]xi) Other sign or symptom of heart failure requiring inpatient treatment (ie, too severe or not responsive to outpatient and observation care treatment) [ ]c) Infection requiring inpatient management (eg, Hemodynamic instability, need for intravenous antimicrobial treatment)(66)(67)(68)(69)(70) [ ]d) Cardiac allograft vasculopathy requiring inpatient management ( eg evidence of cardiac ischemia)(71) [ ]e) Other complication of transplanted heart (eg, stroke, severe pulmonary hypertension, severe valvular dysfunction) requiring inpatient management(72) The original [facility] content created by [facility] has been revised. The portions of the content which have been revised are identified through the use of italic text or in bold, and [facility] has neither reviewed nor approved the modified material. All other unmodified content is copyright [facility]. Please see references footnoted in the original [facility] edition 2016 ILA ANDERSON August 09, 2016 05:08
[2016-08-09 05:09] LABS: CKMB MASS 0.9 ng/mL (0.0-3.6); CREATINE KINASE 71 U/L (39-308)
[2016-08-09 05:19] LABS: BILIRUBIN,URINE NEGATIVE (NEG); GLUCOSE,URINE NEGATIVE (NEG); NITRITE,URINE NEGATIVE (NEG); PH,URINE 6.5; PROTEIN,URINE NEGATIVE (NEG-TRACE)
[2016-08-09 05:28] LABS: BACTERIA,URINE 0 /HPF (0-FEW); RBC,URINE 20-40 /HPF (0-2); SQUAMOUS EPITHELIAL CELL,UR OCC /LPF; WBC,URINE OCC /HPF (0-4)
[2016-08-09] MEDS ORDERED: ACETAMINOPHEN 325 MG TABLET. PO PRN (05:30)
[2016-08-09] MEDS ORDERED: ONDANSETRON PF 4 MG/2 ML VIAL. IV PRN (05:30)
--- NOTE | 2016-08-09 05:44 | ACF ---
Admission Forms Criteria HEART FAILURE Clinical Indications for Admission to Inpatient Care (Place 'X' for any and all applicable criteria): Admission is indicated by ANY ONE of the following(1)(2)(3)(4): [ ]I. Severe electrolyte abnormalities requiring inpatient care(9) [ ]II. Hemodynamic instability [ ]III. Anasarca [ ]IV. Acute cardiac ischemia causing or associated with failure (Also use Angina or Myocardial Infarction as appropriate) [ ]V. Cardiac arrhythmias of immediate concern [ ]. Precipitating cause for acute decompensation (eg, pneumonia, pulmonary embolism) requires inpatient care [ ]VII. Pulmonary edema that is very severe (eg, mechanical ventilation needed, imminent or likely, need for 100% oxygen to keep oxygen saturation above 90%) [ ]VIII. Inpatient admission required rather than observation care (Also use Heart Failure: Observation Care as appropriate) because of ANY ONE of the following: [ ]a) Pulmonary edema that is severe or worsening as indicated by ALL of the following: [ ]i) New need for oxygen therapy to keep oxygen saturation above 90% (or increased FiO2 need from baseline) [ ]ii) Has not improved sufficiently with emergency department or observation care IV diuretics or other heart failure treatments[C] [ ]b) Cognitive impairment that is severe or persistent [ ]c) Increased creatinine (new on laboratory test) with reduction of more than 50% in estimated glomerular filtration rate from baseline. [ ]d) Acute renal insufficiency (progressively (ongoing) rising creatinine (known from past laboratory test) with reduction of more than 25% in estimated glomerular filtration rate from baseline) [ ]e) Acute peripheral ischemia (eg, pulseless, cool, mottled, or cyanotic extremity) [ ]f) Acute renal failure [ ]g) Supplemental O2 or respiratory treatment for >24 hr that are performable only in acute inpatient setting [ ]h) Pulmonary artery catheter monitoring [ ]i) Other condition, treatment or monitoring requiring inpatient admission [X]IX. Contraindications and/or Inappropriate clinical situations for Observational Care in patients with Heart Failure, when ANY ONE of the following is required: [ ]a) Patient with High risk of cardiac embolism (e.g, patients with previous cardiac embolism, LVEF < 40%, age >75 and patients with prosthetic valve) 18 [ ]b) Patient with Moderate risk including DM patient, CAD and patient aged 65-75 [ ]c) Patient with any change in cardiac biomarker especially troponin should be managed as high risk in an inpatient setting 19 [ ]d) Physician judgement irrespective of ECG and other diagnostic findings 20 [ ]e) Patients with hyponatremia have high risk for mortality and require more extensive care and length of stay 21 [X]f) Need for large volume diuresis 21 [ ]g) Presence of renal insufficiency or hypotension limiting speed of diuresis 21 [ ]h) Acute cardiac Ischemia in the elderly 21 [ ]i) Patients with a 30 day risk of mortality based on a multidimensional prognostic index (MPI) [J,]21 [ ]X. General contraindications and/or Inappropriate clinical situations for Observational Care in patients with Heart Failure, when ANY ONE of the following is required: [ ]a) Prediction of prolongation of LOS based on ANY ONE of the following may be considered as a contraindication for observational care 2, 3, 4, 5, 6, 7, 8 , 9, 10, 11 [ ]i) Age > 65 yrs. [ ]ii) Patient arriving by ambulance [ ]iii) Patient with high acuity [ ]iv) Patient requiring vital sign monitoring [ ]v) Patient on IV medication [ ]b) Systolic blood pressures 180mmHg 3,12 [ ]c) Patient with altered mental status including delirium and other alteration of consciousness, (3) [ ]d) Patient whose discharge disposition will be to a [place] [facility] home or rehabilitation home should not be managed in Emergency Department Observation Unit. CMS rule requires 3 days hospital stay before such placement.3,13 [ ]e) Patient with failure to thrive due to broad array of etiologies 3,16,17 [ ]f) Inability to ambulate 3,14 Extended stay beyond goal length of stay may be needed for(1)(3)(21)(25): [ ]a) Cardiac ischemia, confirmed or suspected as precipitant [ ]b) Cardiogenic shock or refractory pulmonary edema [ ]c) Acute kidney injury or renal failure [ ]d) Respiratory failure (eg, need for noninvasive or invasive mechanical ventilation) (23) [ ]e) Concomitant pneumonia or significant electrolyte abnormality (eg, severe hyponatremia) [ ]f) Newly diagnosed (new onset) atrial fibrillation [ ]g) Stage IV chronic kidney disease (estimated glomerular filtration rate of less than 30 mL/min/1.73m2 (0.50 mL/sec/1.73m2), and not previously on chronic dialysis The original [facility] content created by [facility] has been revised. The portions of the content which have been revised are identified through the use of italic text or in bold, and [facility] has neither reviewed nor approved the modified material. All other unmodified content is copyright [facility]. Please see references footnoted in the original [facility] edition 2016 Admission Criteria Met?: Yes ILA ANDERSON August 09, 2016 05:44
[2016-08-09 05:45] VITALS: BP 147/64
[2016-08-09 06:12] LABS: ANISOCYTOSIS PRESENT; PLT ESTIMATE ADEQUATE (ADEQUATE)
[2016-08-09 07:00] VITALS: BP 135/81
--- NOTE | 2016-08-09 07:04 | EKG ---
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
--- NOTE | 2016-08-09 07:45 | RAD ---
EXAM: Chest, single view. HISTORY: Shortness of breath. COMPARISON: 07/27/2016. FINDINGS: A frontal view of the chest is obtained. There are suspected trace pleural effusions. There is stable diffuse interstitial prominence. There is stable cardiomegaly and evidence of prior mediastinal surgery. There is a left cardiac pacemaker defibrillator in expected position. There is no pneumothorax. IMPRESSION: 1. Stable mild diffuse interstitial prominence suggesting trace congestion. 2. Suspected trace pleural effusions. 3. Stable enlargement of the cardiac silhouette.
[2016-08-09] MEDS ORDERED: diazePAM 2 MG TABLET PO PRN (09:45)
[2016-08-09] MEDS ORDERED: OXYMORPHONE HCL 10 MG PO PRN (09:45)
[2016-08-09] MEDS ORDERED: OXYC40TA21 PO (10:27)
[2016-08-09] MEDS: FUROSEMIDE 40 MG TABLET. PO SCH ×2 (10:30→16:12)
[2016-08-09] MEDS ORDERED: oxyCODONE ER 40 MG TAB.ER.12H PO ONE (10:45)
--- NOTE | 2016-08-09 10:46 | PDOC2 ---
CONSULT Date of Consult Date of Consult DATE: 08/09/16 TIME: 10:46 Reason for Consult Reason for Consult: Chest pain Referring Physician Referring Physician: Dr. Santos Identification/Chief Complaint Chief Complaint Chest pain and shortness of breath Source Source: Chart review, Patient History of Present Illness Reason for Visit: 45-year-old male presented with retrosternal chest pressure associated with shortness of breath that started one hour prior to presentation. He denied any exertional component to his chest pain. He also denied any palpitations or syncope. Patient has history of coronary artery bypass surgery and AICD implantation and usually follows with legal research analyst at [facility]. He was seen at [facility] in April 2016 for chest pain when stress test did not show any significant ischemia. Past Medical History Cardiovascular: AFIB, CAD (CABG), CHF, HTN, [place], Hyperlipidemia, Other Pulmonary: Other CENTRAL NERVOUS SYSTEM: Periperal neuropathy GI: GERD Heme/Onc: No pertinent hx Hepatobiliary: No pertinent hx Psych: Anxiety Musculoskeletal: low back pain, Osteoarthritis, Other Rheumatologic: No pertinent hx Infectious disease: No pertinent hx Renal/: Chronic renal insuff, Other Endocrine: No pertinent hx Past Surgical History Past Surgical History: Pacemaker (AICD), Cholecystectomy, CABG, Total knee replacement, Tonsillectomy, Other Family History Family History: Coronary Artery Disease Social History ALCOHOL: none Drugs: None Lives: with Family Current Problem List Problem List Problems Medical Problems: (1) Acute on chronic congestive heart failure Status: Acute (2) Chest pain Status: Acute Current Medications Current Medications Current Medications Albuterol Sulfate (Ventolin Neb Soln) 2.5 mg STK-MED ONCE .ROUTE ; Start at 04:14; Stop 08/09/16 at 04:15; Status DC Albuterol Sulfate (Ventolin Neb Soln) 2.5 mg 1X ONCE NEB Last administered on 08/09/16 04:19; Start 08/09/16 at 04:30; Stop 08/09/16 at 04:31; Status DC Furosemide (Lasix) 60 mg 1X ONCE IVP Last administered on 08/09/16t 04:29; Start 08/09/16 at 04:30; Stop 08/09/16 at 04:31; Status DC Ondansetron HCl (Zofran) 4 mg PRN Q8HRS PRN IV NAUSEA/VOMITING; Start 08/09/16 at 05:30; Stop 08/10/16 at 05:29 Acetaminophen (Tylenol) 650 mg PRN Q4HRS PRN PO FEVER; Start 08/09/16 at 05:30 ; Stop 08/10/16 at 05:29 Aspirin (Ecotrin) 81 mg DAILY PO ; Start 08/09/16 at 11:00 Diazepam (Valium) 2 mg PRN Q6HRS PRN PO ANXIETY; Start 08/09/16 at 09:45 EZETIMIBE (Zetia) 10 mg HS PO ; Start 08/09/16 at 21:00 Furosemide (Lasix) 40 mg BID92 PO ; Start 08/09/16 at 10:30 Isosorbide Mononitrate (Imdur) 60 mg DAILY PO ; Start 08/10/16 at 09:00; Stop at 09:00; Status DC Lidocaine (Lidoderm) 1 patch DAILY TP ; Start 08/09/16 at 11:00 Lisinopril (Prinivil) 10 mg DAILYWLUN PO ; Start 08/09/16 at 12:00 Niacin (Slo-Niacin) 500 mg QHS PO ; Start 08/09/16 at 21:00 Fish Oil (Fish Oil) 1,000 mg DAILY PO ; Start 08/09/16 at 11:00 Carvedilol (Coreg) 25 mg BIDWMEALS PO ; Start 08/09/16 at 11:00 Pantoprazole Sodium (Protonix) 40 mg DAILYAC PO ; Start 08/09/16 at 11:30 Non-Formulary Medication 2 sprays DAILY PRN NS CONGESTION; Start 08/09/16 at 09 :45; Status UNV Non-Formulary Medication 1 tab Q8HRS PRN PO NAUSEA; Start 08/09/16 at 09:45; Status UNV Non-Formulary Medication 40 mg QID PO ; Start 08/09/16 at 13:00; Stop 08/09/16 at 13:00; Status DC Non-Formulary Medication 10 mg QID PRN PO PAIN; Start 08/09/16 at 09:45; Stop 08/09/16 at 10:23; Status DC Non-Formulary Medication 1 tab QHS PO ; Start 08/09/16 at 21:00; Status UNV Oxycodone HCl (OxyCONTIN) 40 mg Q12HR PO ; Start 08/09/16 at 21:00 Oxycodone HCl (OxyCONTIN) 40 mg 1X ONCE PO ; Start 08/09/16 at 10:45; Stop at 10:46 Isosorbide Mononitrate (Imdur) 60 mg DAILY PO ; Start 08/09/16 at 11:00 Active Scripts Active Lidoderm (Lidocaine) 700 Mg Adh..patch 1 Patch TP DAILY Reported Oxycontin (Oxycodone HCl) 40 Mg Tab.er.12h 40 Mg PO BID Zofran (Ondansetron Hcl) 4 Mg Tablet 1 Tab PO Q8HRS PRN Fish Oil 1,000 Mg Capsule ([place]-3 Fatty Acids/Fish Oil) 1 Each Capsule 1 Each PO DAILY [Ntroglycerin Scott] PRN PRN Lisinopril 10 Mg Tablet 1 Tab PO DAILYWLUN Isosorbide Mononitrate Er (Isosorbide Mononitrate) 60 Mg Tab.er.24h 1 Tab PO DAILY Crestor (Rosuvastatin Calcium) 40 Mg Tablet 1 Tab PO QHS Furosemide 40 Mg Tablet 1 Tab PO BID Aspir 81 (Aspirin) 81 Mg Tablet.dr 1 Tab PO DAILY Zetia (Ezetimibe) 10 Mg Tablet 10 Mg PO HS Flonase Allergy Relief (Fluticasone Propionate) 9.9 Ml Scott.susp 2 Sprays NS DAILY PRN Niaspan (Niacin) 500 Mg Tab.er.24h 1 Tab PO QHS Esomeprazole Capsule (Esomeprazole Strontium) 40 Mg Capsule.dr 40 Mg PO DAILYAC Diazepam 2 Mg Tablet 2 Mg PO PRN Q4-6HRS PRN Coreg (Carvedilol) 25 Mg Tablet 1 Tab PO BID Allergies Allergies: Coded Allergies: buprenorphine (Verified Allergy, Severe, Anaphylaxis, 07/22/16) naloxone (Verified Allergy, Severe, Anaphylaxis, 07/22/16) Penicillins (Verified Allergy, Intermediate, RESPIRATORY DISTRESS,HIVES, ) ROS PSYCHOLOGICAL ROS: No: Hallucinations Eyes: No Loss of vision HEENT: No: Epistaxis Respiratory: YES: Shortness of breath, No: Cough Cardiovascular: yes Chest Pain Gastrointestinal: No Vomiting, No Diarrhea Neurological: No Memory Loss, No Seizures Physical Exam General: Alert, No acute distress Lungs: Other (bilateral basal crepitations) Heart: Regular rate, No murmurs Abdomen: Soft, No tenderness Extremities: No edema (2-3+ pitting pedal edema with some chronic changes) Vitals VITALS Vital Signs Date Time Temp Pulse Resp B/P (MAP) Pulse Ox O2 Delivery O2 Flow Rate FiO2 08/09/16 07:30 Nasal Cannula 2.0 08/09/16 07:00 97.4 83 18 135/81 (99) 98 97.4 Labs Labs Laboratory Tests Test 08/09/16 04:15 08/09/16 04:54 White Blood Count 5.6 x10^3/uL (4.0-11.0) Red Blood Count 4.55 x10^6/uL (4.30-5.70) Hemoglobin 12.3 g/dL (13.0-17.5) Hematocrit 38.8 % (39.0-53.0) Mean Corpuscular Volume 85 fL (79-100) Mean Corpuscular Hemoglobin 27 pg (25-35) Mean Corpuscular Hemoglobin Concent 32 g/dL (31-37) Red Cell Distribution Width 20.1 % (11.5-14.5) Platelet Count 107 x10^3/uL (140-400) Neutrophils (%) (Auto) 67 % (31-73) Lymphocytes (%) (Auto) 19 % (24-48) Monocytes (%) (Auto) 10 % (0-9) Eosinophils (%) (Auto) 2 % (0-3) Basophils (%) (Auto) 1 % (0-3) Neutrophils # (Auto) 3.8 x10^3uL (1.8-7.7) Lymphocytes # (Auto) 1.1 x10^3/uL (1.0-4.8) Monocytes # (Auto) 0.6 x10^3/uL (0.0-1.1) Eosinophils # (Auto) 0.1 x10^3/uL (0.0-0.7) Basophils # (Auto) 0.1 x10^3/uL (0.0-0.2) Platelet Estimate Adequate (ADEQUATE) Anisocytosis Present Sodium Level 141 mmol/L (136-145) Potassium Level 4.2 mmol/L (3.5-5.1) Chloride Level 105 mmol/L (98-107) Carbon Dioxide Level 24 mmol/L (21-32) Anion Gap 12 (6-14) Blood Urea Nitrogen 14 mg/dL (8-26) Creatinine 1.0 mg/dL (0.7-1.3) Estimated GFR (Cockcroft-Gault) 80.1 BUN/Creatinine Ratio 14 (6-20) Glucose Level 116 mg/dL (70-99) Calcium Level 8.9 mg/dL (8.5-10.1) Total Bilirubin 1.4 mg/dL (0.2-1.0) Aspartate Amino Transf (AST/SGOT) 33 U/L (15-37) Alanine Aminotransferase (ALT/SGPT) 23 U/L (16-63) Alkaline Phosphatase 142 U/L (46-116) Creatine Kinase 71 U/L (39-308) Creatine Kinase MB (Mass) 0.9 ng/mL (0.0-3.6) Creatine Kinase MB Relative Index % (0-4) Troponin I Quantitative 0.030 ng/mL (0.000-0.055) YL-Mme-D-Type Natriuretic Peptide 1663 pg/mL (0-124) Total Protein 7.7 g/dL (6.4-8.2) Albumin 3.3 g/dL (3.4-5.0) Albumin/Globulin Ratio 0.8 (1.0-1.7) Urine Collection Type Unknown Urine Color Regine Urine Clarity Clear Urine pH 6.5 Urine Specific [place] 1.020 Urine Protein Negative mg/dL (NEG-TRACE) Urine Glucose (UA) Negative mg/dL (NEG) Urine Ketones (Stick) Negative mg/dL (NEG) Urine Blood Moderate (NEG) Urine Nitrite Negative (NEG) Urine Bilirubin Negative (NEG) Urine Urobilinogen Dipstick 1.0 mg/dL (0.2 mg/dL) Urine Leukocyte Esterase Negative (NEG) Urine RBC 20-40 /HPF (0-2) Urine WBC Occ /HPF (0-4) Urine Squamous Epithelial Cells Occ /LPF Urine Bacteria 0 /HPF (0-FEW) Urine Mucus Mod /LPF Laboratory Tests Test 08/09/16 04:15 08/09/16 04:54 White Blood Count 5.6 x10^3/uL (4.0-11.0) Red Blood Count 4.55 x10^6/uL (4.30-5.70) Hemoglobin 12.3 g/dL (13.0-17.5) Hematocrit 38.8 % (39.0-53.0) Mean Corpuscular Volume 85 fL (79-100) Mean Corpuscular Hemoglobin 27 pg (25-35) Mean Corpuscular Hemoglobin Concent 32 g/dL (31-37) Red Cell Distribution Width 20.1 % (11.5-14.5) Platelet Count 107 x10^3/uL (140-400) Neutrophils (%) (Auto) 67 % (31-73) Lymphocytes (%) (Auto) 19 % (24-48) Monocytes (%) (Auto) 10 % (0-9) Eosinophils (%) (Auto) 2 % (0-3) Basophils (%) (Auto) 1 % (0-3) Neutrophils # (Auto) 3.8 x10^3uL (1.8-7.7) Lymphocytes # (Auto) 1.1 x10^3/uL (1.0-4.8) Monocytes # (Auto) 0.6 x10^3/uL (0.0-1.1) Eosinophils # (Auto) 0.1 x10^3/uL (0.0-0.7) Basophils # (Auto) 0.1 x10^3/uL (0.0-0.2) Platelet Estimate Adequate (ADEQUATE) Anisocytosis Present Sodium Level 141 mmol/L (136-145) Potassium Level 4.2 mmol/L (3.5-5.1) Chloride Level 105 mmol/L (98-107) Carbon Dioxide Level 24 mmol/L (21-32) Anion Gap 12 (6-14) Blood Urea Nitrogen 14 mg/dL (8-26) Creatinine 1.0 mg/dL (0.7-1.3) Estimated GFR (Cockcroft-Gault) 80.1 BUN/Creatinine Ratio 14 (6-20) Glucose Level 116 mg/dL (70-99) Calcium Level 8.9 mg/dL (8.5-10.1) Total Bilirubin 1.4 mg/dL (0.2-1.0) Aspartate Amino Transf (AST/SGOT) 33 U/L (15-37) Alanine Aminotransferase (ALT/SGPT) 23 U/L (16-63) Alkaline Phosphatase 142 U/L (46-116) Creatine Kinase 71 U/L (39-308) Creatine Kinase MB (Mass) 0.9 ng/mL (0.0-3.6) Creatine Kinase MB Relative Index % (0-4) Troponin I Quantitative 0.030 ng/mL (0.000-0.055) JB-Dfe-I-Type Natriuretic Peptide 1663 pg/mL (0-124) Total Protein 7.7 g/dL (6.4-8.2) Albumin 3.3 g/dL (3.4-5.0) Albumin/Globulin Ratio 0.8 (1.0-1.7) Urine Collection Type Unknown Urine Color Regine Urine Clarity Clear Urine pH 6.5 Urine Specific [place] 1.020 Urine Protein Negative mg/dL (NEG-TRACE) Urine Glucose (UA) Negative mg/dL (NEG) Urine Ketones (Stick) Negative mg/dL (NEG) Urine Blood Moderate (NEG) Urine Nitrite Negative (NEG) Urine Bilirubin Negative (NEG) Urine Urobilinogen Dipstick 1.0 mg/dL (0.2 mg/dL) Urine Leukocyte Esterase Negative (NEG) Urine RBC 20-40 /HPF (0-2) Urine WBC Occ /HPF (0-4) Urine Squamous Epithelial Cells Occ /LPF Urine Bacteria 0 /HPF (0-FEW) Urine Mucus Mod /LPF Assessment/Plan Assessment/Plan 1. Acute on chronic systolic heart failure: Most probably secondary to noncompliance. Recent 2-D echo 04/2016 showed LVEF 20-25%. Continue diuresis with Lasix. 2. CAD: s/p CABG 2 yrs ago, presently complaining of chest pain with very atypical features. EKG showed sinus rhythm, frequent PACs and right bundle branch block. Recent nuclear stress test from April 2016 did not show any significant ischemia. Doubt ACS. Chest pain most probably musculoskeletal. 3. Hypertension: Better controlled since admission. 4. Ischemic Cardiomyopathy: s/p AICD implantation. 5. Paroxysmal atrial fibrillation: Presently in sinus rhythm 6. Morbid obesity 7. COPD: per IM 8. Noncompliance with diet and fluid restrictions Thank you for your consultation. ADITYA MELARA MD August 09, 2016 10:46
[2016-08-09 11:00] VITALS: BP 136/85
[2016-08-09] MEDS: LIDOCAINE (700MG/PATCH) PATCH. TP SCH (11:00)
[2016-08-09] MEDS: ASPIRIN ENTERIC COATED 81 MG TABLET.DR. PO SCH (11:00)
[2016-08-09] MEDS ORDERED: ONDANSETRON ODT 4 MG TAB.RAPDIS. PO PRN (11:00)
[2016-08-09] MEDS: CARVEDILOL 12.5 MG TABLET. PO SCH ×2 (11:00→17:31)
[2016-08-09] MEDS: PANTOPRAZOLE 40 MG TABLET.DR. PO SCH (11:30)
[2016-08-09] MEDS ORDERED: LISINOPRIL 10 MG TABLET PO SCH (12:00)
[2016-08-09] MEDS ORDERED: OXYMORPHONE HCL 40 MG PO SCH (13:00)
--- NOTE | 2016-08-09 13:59 | HP ---
ADMIT DATE: 08/09/2016 CHIEF COMPLAINT: Chest pain, shortness of breath. HISTORY OF PRESENT ILLNESS: The patient is a pleasant middle-aged white male who has known coronary artery disease. He presents with chest pain and shortness of breath, rates it 7/10. It has been occurring for several days. He tried increasing his home medications, but that is not working, it is worse with movement, better with sitting still. I discussed the case with the ER doctor. We are going to admit the patient and consult Cardiology. PAST MEDICAL HISTORY: AFib, anxiety, CHF, depression, GERD, hyperlipidemia, myocardial infarction, kidney stones, hypertension, coronary artery bypass graft x 2, knee replacement, pacemaker, tonsillectomy, AICD, left femur surgery, right femur karsten, skin grafts, lithotripsy. ALLERGIES: PENICILLIN, BUPRENORPHINE AND NALOXONE. FAMILY HISTORY: Coronary artery disease. SOCIAL HISTORY: He does not drink, smoke or take drugs. MEDICATIONS: Reviewed, please refer to the MRAD. REVIEW OF SYSTEMS: GENERAL: No history of weight change, weakness or fevers. SKIN: No bruising, hair changes or rashes. EYES: No blurred, double or loss of vision. NOSE AND THROAT: No history of nosebleeds, hoarseness or sore throat. HEART: He complains of chest pain. LUNGS: He complains of shortness of breath. GASTROINTESTINAL: Denies changes in appetite, nausea, vomiting, diarrhea or constipation. GENITOURINARY: No history of frequency, urgency, hesitancy or nocturia. NEUROLOGIC: Denies history of numbness, tingling, tremor or weakness. PSYCHIATRIC: No history of panic, anxiety or depression. ENDOCRINE: No history of heat or cold intolerance, polyuria or polydipsia. EXTREMITIES: Denies muscle weakness, joint pain, pain on walking or stiffness. PHYSICAL EXAMINATION: VITAL SIGNS: Temperature afebrile, pulse 62, respirations 20, blood pressure 150/85, O2 sat 96% on 2 liters. GENERAL: He is awake, he is alert, cooperative and talkative. HEART: Distant S1, S2 with a soft S3. LUNGS: Bibasilar crackles. ABDOMEN: Soft, positive bowel sounds, obese. EXTREMITIES: 2+ edema. SKIN: No rashes. ENDOCRINE: No thyromegaly. LYMPHATICS: No cervical nodes. HEMATOPOIETIC: No bruising. LABORATORY DATA: White count 5, hemoglobin 12, platelets 107. Electrolytes: Sodium 141, potassium 4.2, chloride 105, bicarbonate 24, BUN 14, creatinine 1, glucose 116, troponin is 0.03. BNP 1663. IMAGING DATA: Chest x-ray shows vascular congestion. ASSESSMENT AND PLAN: Acute on chronic systolic and diastolic heart failure. The patient is being admitted. We will consult Cardiology, serial enzymes, serial EKGs, echocardiogram, IV diuretics, continue home medicines. PROGNOSIS: Guarded. WALLY ESQUEDA DO DR: SHAYNA/[place] JOB#: [id number] / [id number]
[2016-08-09] MEDS: MORPHINE SULFATE 2 MG/ML DISP.SYRIN. IV PRN ×4 (14:40→23:36)
[2016-08-09] MEDS: OMEGA-3 FATTY ACIDS/FISH OIL 1,000 MG CAPSULE. PO SCH (14:48)
[2016-08-09] MEDS: ISOSORBIDE MONONITRATE ER 60 MG TAB.ER.24H. PO SCH (14:48)
[2016-08-09 15:00] VITALS: BP 141/68
[2016-08-09 19:15] VITALS: BP 103/64
[2016-08-09] MEDS: oxyCODONE ER 40 MG TAB.ER.12H PO SCH (20:55)
[2016-08-09] MEDS ORDERED: EZETIMIBE 10 MG TABLET. PO SCH (21:00)
[2016-08-09] MEDS ORDERED: NIACIN ER 500 MG TABLET.ER PO SCH (21:00)
[2016-08-09] MEDS ORDERED: ATORVASTATIN CALCIUM 40 MG TABLET. PO SCH (21:00)
[2016-08-09] MEDS ORDERED: NON FORMULARY ITEM (Rosuvastatin Calcium (Crestor) 1 TAB) PO SCH (21:00)
[2016-08-09 22:48] VITALS: BP 112/58
[2016-08-10] MEDS: MORPHINE SULFATE 2 MG/ML DISP.SYRIN. IV PRN ×2 (02:23→06:40)
[2016-08-10 02:55] VITALS: BP 121/57
[2016-08-10 04:19] LABS: BASO # 0.1 x10^3/uL (0.0-0.2); BASO % 1 % (0-3); EOS % 2 % (0-3); HEMATOCRIT 35.4 % (39.0-53.0); HEMOGLOBIN 11.1 g/dL (13.0-17.5); LYMPH # 1.1 x10^3/uL (1.0-4.8); LYMPH % 21 % (24-48); MEAN CORPUSCULAR HEMOGLOBIN 27 pg (25-35); MEAN CORPUSCULAR HGB CONC 32 g/dL (31-37); MEAN CORPUSCULAR VOLUME 86 fL (79-100); MONO % 11 % (0-9); NEUT % 65 % (31-73); PLATELET COUNT 111 x10^3/uL (140-400); RED BLOOD COUNT 4.13 x10^6/uL (4.30-5.70); WHITE BLOOD COUNT 5.1 x10^3/uL (4.0-11.0)
[2016-08-10 04:49] LABS: CALCIUM 8.7 mg/dL (8.5-10.1); CREATININE 1.2 mg/dL (0.7-1.3); GFR 64.9; POTASSIUM 3.7 mmol/L (3.5-5.1)
[2016-08-10] MEDS: PANTOPRAZOLE 40 MG TABLET.DR. PO SCH (06:40)
[2016-08-10 07:51] VITALS: BP 93/52
[2016-08-10] MEDS: FUROSEMIDE 40 MG TABLET. PO SCH (08:21)
[2016-08-10] MEDS: OMEGA-3 FATTY ACIDS/FISH OIL 1,000 MG CAPSULE. PO SCH (08:21)
[2016-08-10] MEDS: ASPIRIN ENTERIC COATED 81 MG TABLET.DR. PO SCH (08:21)
[2016-08-10] MEDS: oxyCODONE ER 40 MG TAB.ER.12H PO SCH (08:21)
[2016-08-10] MEDS: ISOSORBIDE MONONITRATE ER 60 MG TAB.ER.24H. PO SCH (08:22)
[2016-08-10] MEDS: LIDOCAINE (700MG/PATCH) PATCH. TP SCH (08:25)
[2016-08-10] MEDS ORDERED: ISOSORBIDE MONONITRATE ER 60 MG TAB.ER.24H. PO SCH (09:00)
[2016-08-10] MEDS ORDERED: FLUTICASONE 50MCG/NASAL SPRAY 16GM BOTTLE. NS PRN (09:00)
[2016-08-10] MEDS ORDERED: HYDR2TAB13 PO (09:58)
--- NOTE | 2016-08-10 10:02 | PDOC3 ---
Discharge Summary Visit Information Date of Admission: August 09, 2016 Date of Discharge: August 10, 2016 Admitting Diagnosis Comment: Assessment/Plan 1. Acute on chronic systolic heart failure: Most probably secondary to noncompliance. Recent 2-D echo 04/2016 showed LVEF 20-25%. Continue diuresis with Lasix. 2. CAD: s/p CABG 2 yrs ago, presently complaining of chest pain with very atypical features. EKG showed sinus rhythm, frequent PACs and right bundle branch block. Recent nuclear stress test from April 2016 did not show any significant ischemia. Doubt ACS. Chest pain most probably musculoskeletal. 3. Hypertension: Better controlled since admission. 4. Ischemic Cardiomyopathy: s/p AICD implantation. 5. Paroxysmal atrial fibrillation: Presently in sinus rhythm 6. Morbid obesity 7. COPD: per IM 8. Noncompliance with diet and fluid restrictions Final Diagnosis Problems Medical Problems: (1) Acute on chronic congestive heart failure Status: Acute (2) Chest pain Status: Acute Brief Hospital Course Allergies Allergies Coded Allergies Type Severity Reaction Last Updated Verified buprenorphine Allergy Severe Anaphylaxis 07/22/16 Yes naloxone Allergy Severe Anaphylaxis 07/22/16 Yes Penicillins Allergy Intermediate RESPIRATORY DISTRESS,HIVES 05/09/16 Yes Vital Signs Vital Signs Date Time Temp Pulse Resp B/P (MAP) Pulse Ox O2 Delivery O2 Flow Rate FiO2 08/10/16 08:22 89 104/70 08/10/16 08:21 98 Room Air 2.0 08/10/16 07:51 98.0 21 98.0 Lab Results Laboratory Tests Test 08/09/16 04:15 08/09/16 04:54 08/09/16 11:20 08/09/16 17:15 White Blood Count 5.6 x10^3/uL (4.0-11.0) Red Blood Count 4.55 x10^6/uL (4.30-5.70) Hemoglobin 12.3 g/dL (13.0-17.5) Hematocrit 38.8 % (39.0-53.0) Mean Corpuscular Volume 85 fL (79-100) Mean Corpuscular Hemoglobin 27 pg (25-35) Mean Corpuscular Hemoglobin Concent 32 g/dL (31-37) Red Cell Distribution Width 20.1 % (11.5-14.5) Platelet Count 107 x10^3/uL (140-400) Neutrophils (%) (Auto) 67 % (31-73) Lymphocytes (%) (Auto) 19 % (24-48) Monocytes (%) (Auto) 10 % (0-9) Eosinophils (%) (Auto) 2 % (0-3) Basophils (%) (Auto) 1 % (0-3) Neutrophils # (Auto) 3.8 x10^3uL (1.8-7.7) Lymphocytes # (Auto) 1.1 x10^3/uL (1.0-4.8) Monocytes # (Auto) 0.6 x10^3/uL (0.0-1.1) Eosinophils # (Auto) 0.1 x10^3/uL (0.0-0.7) Basophils # (Auto) 0.1 x10^3/uL (0.0-0.2) Platelet Estimate Adequate (ADEQUATE) Anisocytosis Present Sodium Level 141 mmol/L (136-145) Potassium Level 4.2 mmol/L (3.5-5.1) Chloride Level 105 mmol/L (98-107) Carbon Dioxide Level 24 mmol/L (21-32) Anion Gap 12 (6-14) Blood Urea Nitrogen 14 mg/dL (8-26) Creatinine 1.0 mg/dL (0.7-1.3) Estimated GFR (Cockcroft-Gault) 80.1 BUN/Creatinine Ratio 14 (6-20) Glucose Level 116 mg/dL (70-99) Calcium Level 8.9 mg/dL (8.5-10.1) Total Bilirubin 1.4 mg/dL (0.2-1.0) Aspartate Amino Transf (AST/SGOT) 33 U/L (15-37) Alanine Aminotransferase (ALT/SGPT) 23 U/L (16-63) Alkaline Phosphatase 142 U/L (46-116) Creatine Kinase 71 U/L (39-308) Creatine Kinase MB (Mass) 0.9 ng/mL (0.0-3.6) Creatine Kinase MB Relative Index % (0-4) Troponin I Quantitative 0.030 ng/mL (0.000-0.055) 0.029 ng/mL (0.000-0.055) 0.026 ng/mL (0.000-0.055) LS-Rgj-Z-Type Natriuretic Peptide 1663 pg/mL (0-124) Total Protein 7.7 g/dL (6.4-8.2) Albumin 3.3 g/dL (3.4-5.0) Albumin/Globulin Ratio 0.8 (1.0-1.7) Urine Collection Type Unknown Urine Color Regine Urine Clarity Clear Urine pH 6.5 Urine Specific [place] 1.020 Urine Protein Negative mg/dL (NEG-TRACE) Urine Glucose (UA) Negative mg/dL (NEG) Urine Ketones (Stick) Negative mg/dL (NEG) Urine Blood Moderate (NEG) Urine Nitrite Negative (NEG) Urine Bilirubin Negative (NEG) Urine Urobilinogen Dipstick 1.0 mg/dL (0.2 mg/dL) Urine Leukocyte Esterase Negative (NEG) Urine RBC 20-40 /HPF (0-2) Urine WBC Occ /HPF (0-4) Urine Squamous Epithelial Cells Occ /LPF Urine Bacteria 0 /HPF (0-FEW) Urine Mucus Mod /LPF Test 08/10/16 03:10 White Blood Count 5.1 x10^3/uL (4.0-11.0) Red Blood Count 4.13 x10^6/uL (4.30-5.70) Hemoglobin 11.1 g/dL (13.0-17.5) Hematocrit 35.4 % (39.0-53.0) Mean Corpuscular Volume 86 fL (79-100) Mean Corpuscular Hemoglobin 27 pg (25-35) Mean Corpuscular Hemoglobin Concent 32 g/dL (31-37) Red Cell Distribution Width 20.0 % (11.5-14.5) Platelet Count 111 x10^3/uL (140-400) Neutrophils (%) (Auto) 65 % (31-73) Lymphocytes (%) (Auto) 21 % (24-48) Monocytes (%) (Auto) 11 % (0-9) Eosinophils (%) (Auto) 2 % (0-3) Basophils (%) (Auto) 1 % (0-3) Neutrophils # (Auto) 3.3 x10^3uL (1.8-7.7) Lymphocytes # (Auto) 1.1 x10^3/uL (1.0-4.8) Monocytes # (Auto) 0.6 x10^3/uL (0.0-1.1) Eosinophils # (Auto) 0.1 x10^3/uL (0.0-0.7) Basophils # (Auto) 0.1 x10^3/uL (0.0-0.2) Sodium Level 141 mmol/L (136-145) Potassium Level 3.7 mmol/L (3.5-5.1) Chloride Level 102 mmol/L (98-107) Carbon Dioxide Level 32 mmol/L (21-32) Anion Gap 7 (6-14) Blood Urea Nitrogen 14 mg/dL (8-26) Creatinine 1.2 mg/dL (0.7-1.3) Estimated GFR (Cockcroft-Gault) 64.9 Glucose Level 87 mg/dL (70-99) Calcium Level 8.7 mg/dL (8.5-10.1) Laboratory Tests Test 08/09/16 11:20 08/09/16 17:15 08/10/16 03:10 Troponin I Quantitative 0.029 ng/mL (0.000-0.055) 0.026 ng/mL (0.000-0.055) White Blood Count 5.1 x10^3/uL (4.0-11.0) Red Blood Count 4.13 x10^6/uL (4.30-5.70) Hemoglobin 11.1 g/dL (13.0-17.5) Hematocrit 35.4 % (39.0-53.0) Mean Corpuscular Volume 86 fL (79-100) Mean Corpuscular Hemoglobin 27 pg (25-35) Mean Corpuscular Hemoglobin Concent 32 g/dL (31-37) Red Cell Distribution Width 20.0 % (11.5-14.5) Platelet Count 111 x10^3/uL (140-400) Neutrophils (%) (Auto) 65 % (31-73) Lymphocytes (%) (Auto) 21 % (24-48) Monocytes (%) (Auto) 11 % (0-9) Eosinophils (%) (Auto) 2 % (0-3) Basophils (%) (Auto) 1 % (0-3) Neutrophils # (Auto) 3.3 x10^3uL (1.8-7.7) Lymphocytes # (Auto) 1.1 x10^3/uL (1.0-4.8) Monocytes # (Auto) 0.6 x10^3/uL (0.0-1.1) Eosinophils # (Auto) 0.1 x10^3/uL (0.0-0.7) Basophils # (Auto) 0.1 x10^3/uL (0.0-0.2) Sodium Level 141 mmol/L (136-145) Potassium Level 3.7 mmol/L (3.5-5.1) Chloride Level 102 mmol/L (98-107) Carbon Dioxide Level 32 mmol/L (21-32) Anion Gap 7 (6-14) Blood Urea Nitrogen 14 mg/dL (8-26) Creatinine 1.2 mg/dL (0.7-1.3) Estimated GFR (Cockcroft-Gault) 64.9 Glucose Level 87 mg/dL (70-99) Calcium Level 8.7 mg/dL (8.5-10.1) Brief Hospital Course Mr. Kiser is a 45 old OBESE male hx of CHF with non compliance admitted for "CHF", CXR ok, We did not change any of his home meds. COntinued his home meds and feels better, VS ok, LAbs ok, COmpliance overemphasized with him today, Preoccupied with pain meds - used to see dr. Melisa Clinton, claims having difficulty PCP to ff up for pain meds, Requests PO dilaudid. On long acting BID pain med at home. 20 pills dilaudid given Rx for lasix also given even if he claims he does not need any Likelihood of readmits, high if cards not called by ER MD prior to getting admitted, [facility] will screen this case often Discharge Information Condition at Discharge: Improved, Stable Disposition/Orders: D/C to Home Scheduled Aspirin (Aspir 81), 1 TAB PO DAILY, (Reported) Carvedilol (Coreg), 1 TAB PO BID, (Reported) Esomeprazole Strontium (Esomeprazole Capsule), 40 MG PO DAILYAC, (Reported) Ezetimibe (Zetia), 10 MG PO HS, (Reported) Furosemide (Furosemide), 1 TAB PO BID, (Reported) Isosorbide Mononitrate (Isosorbide Mononitrate Er), 1 TAB PO DAILY, (Reported) Lidocaine (Lidoderm), 1 PATCH TP DAILY Lisinopril (Lisinopril), 1 TAB PO DAILYWLUN, (Reported) Niacin (Niaspan), 1 TAB PO QHS, (Reported) [place]-3 Fatty Acids/Fish Oil (Fish Oil 1,000 Mg Capsule), 1 EACH PO DAILY, ( Reported) Oxycodone Hcl (Oxycontin), 40 MG PO BID, (Reported) Rosuvastatin Calcium (Crestor), 1 TAB PO QHS, (Reported) Scheduled PRN Diazepam (Diazepam), 2 MG PO PRN Q4-6HRS PRN for ANXIETY, (Reported) Fluticasone Propionate (Flonase Allergy Relief), 2 SPRAYS NS DAILY PRN for CONGESTION, (Reported) Ondansetron Hcl (Zofran), 1 TAB PO Q8HRS PRN for NAUSEA, (Reported) [Ntroglycerin [place]], PRN PRN for SEE COMMENTS, (Reported) OLEG HARMON MD August 10, 2016 10:02
[2016-08-10 10:51] VITALS: BP 126/80
[2016-08-10 10:52] VITALS: BP 126/80
[2016-08-10] MEDS: CARVEDILOL 12.5 MG TABLET. PO SCH (10:52)
--- NOTE | 2016-08-10 10:56 | PDOC ---
PROGRESS NOTES Subjective Subjective Feels better today. Dyspnea improved. Objective Objective Vital Signs Date Time Temp Pulse Resp B/P (MAP) Pulse Ox O2 Delivery O2 Flow Rate FiO2 08/10/16 10:52 89 126/80 08/10/16 10:51 98.2 21 97 Room Air 98.2 08/10/16 08:21 2.0 Intake and Output 08/10/16 06:59 Intake Total 2660 ml Output Total 4200 ml Balance -1540 ml Intake Oral 2660 ml Output Urine Total 4200 ml Physical Exam Abdomen: Soft, No tenderness Heart: Regular rate, No murmurs Extremities: No edema (2-3+ pitting pedal edema with some chronic changes) General: Alert, No acute distress Lungs: Other (bilateral basal crepitations) MUSCULOSKELETAL: Osteoarthritic changes both hands Assessment Assessment 1. Acute on chronic systolic heart failure: Most probably secondary to noncompliance. Recent 2-D echo 04/2016 showed LVEF 20-25%. Improved with diuresis with Lasix. 2. CAD: s/p CABG 2 yrs ago, presently complaining of chest pain with very atypical features. EKG showed sinus rhythm, frequent PACs and right bundle branch block. Recent nuclear stress test from April 2016 did not show any significant ischemia. Doubt ACS. Chest pain most probably musculoskeletal. 3. Hypertension: Better controlled since admission. 4. Ischemic Cardiomyopathy: s/p AICD implantation. 5. Paroxysmal atrial fibrillation: Presently in sinus rhythm 6. Morbid obesity 7. COPD: per IM 8. Noncompliance with diet and fluid restrictions Plan Plan of Care Problems Medical Problems: (1) Acute on chronic congestive heart failure Status: Acute (2) Chest pain Status: Acute Comment Review of Relevant I have reviewed the following items qian (where applicable) has been applied. Labs Laboratory Tests Test 08/09/16 11:20 08/09/16 17:15 08/10/16 03:10 Troponin I Quantitative 0.029 ng/mL (0.000-0.055) 0.026 ng/mL (0.000-0.055) White Blood Count 5.1 x10^3/uL (4.0-11.0) Red Blood Count 4.13 x10^6/uL (4.30-5.70) Hemoglobin 11.1 g/dL (13.0-17.5) Hematocrit 35.4 % (39.0-53.0) Mean Corpuscular Volume 86 fL (79-100) Mean Corpuscular Hemoglobin 27 pg (25-35) Mean Corpuscular Hemoglobin Concent 32 g/dL (31-37) Red Cell Distribution Width 20.0 % (11.5-14.5) Platelet Count 111 x10^3/uL (140-400) Neutrophils (%) (Auto) 65 % (31-73) Lymphocytes (%) (Auto) 21 % (24-48) Monocytes (%) (Auto) 11 % (0-9) Eosinophils (%) (Auto) 2 % (0-3) Basophils (%) (Auto) 1 % (0-3) Neutrophils # (Auto) 3.3 x10^3uL (1.8-7.7) Lymphocytes # (Auto) 1.1 x10^3/uL (1.0-4.8) Monocytes # (Auto) 0.6 x10^3/uL (0.0-1.1) Eosinophils # (Auto) 0.1 x10^3/uL (0.0-0.7) Basophils # (Auto) 0.1 x10^3/uL (0.0-0.2) Sodium Level 141 mmol/L (136-145) Potassium Level 3.7 mmol/L (3.5-5.1) Chloride Level 102 mmol/L (98-107) Carbon Dioxide Level 32 mmol/L (21-32) Anion Gap 7 (6-14) Blood Urea Nitrogen 14 mg/dL (8-26) Creatinine 1.2 mg/dL (0.7-1.3) Estimated GFR (Cockcroft-Gault) 64.9 Glucose Level 87 mg/dL (70-99) Calcium Level 8.7 mg/dL (8.5-10.1) Medications Current Medications Aspirin (Ecotrin) 81 mg DAILY PO Last administered on 08/10/16 08:21; Start at 11:00 Atorvastatin Calcium (Lipitor) 80 mg QHS PO Last administered on 08/09/16 20: 55; Start 08/09/16 at 21:00 Carvedilol (Coreg) 25 mg BIDWMEALS PO Last administered on 08/10/16 10:52; Start 08/09/16 at 11:00 EZETIMIBE (Zetia) 10 mg HS PO Last administered on 08/09/16 20:55; Start 08/09 at 21:00 Fish Oil (Fish Oil) 1,000 mg DAILY PO Last administered on 08/10/16 08:21; Start 08/09/16 at 11:00 Fluticasone Propionate (Flonase) 2 spray PRN DAILY PRN NS CONGESTION; Start at 09:00 Isosorbide Mononitrate (Imdur) 60 mg DAILY PO Last administered on 08/10/16 08 :22; Start 08/09/16 at 11:00 Isosorbide Mononitrate (Imdur) 60 mg DAILY PO ; Start 08/10/16 at 09:00; Stop at 09:00; Status DC Lidocaine (Lidoderm) 1 patch DAILY TP ; Start 08/09/16 at 11:00 Lisinopril (Prinivil) 10 mg DAILYWLUN PO Last administered on 08/09/16 14:48; Start 08/09/16 at 12:00 Morphine Sulfate 2 mg PRN Q2HR PRN IV PAIN Last administered on 08/10/16 06:40 ; Start 08/09/16 at 14:15 Niacin (Slo-Niacin) 500 mg QHS PO Last administered on 08/09/16 20:55; Start 08/09/16 at 21:00 Non-Formulary Medication 1 tab QHS PO ; Start 08/09/16 at 21:00; Stop 08/09/16 at 21:00; Status DC Non-Formulary Medication 40 mg QID PO ; Start 08/09/16 at 13:00; Stop 08/09/16 at 13:00; Status DC Ondansetron HCl (Zofran Odt) 4 mg PRN Q8HRS PRN PO NAUSEA; Start 08/09/16 at 11 :00 Oxycodone HCl (OxyCONTIN) 40 mg Q12HR PO Last administered on 08/10/16 08:21; Start 08/09/16 at 21:00 Pantoprazole Sodium (Protonix) 40 mg DAILYAC PO Last administered on 08/10/16 06:40; Start 08/09/16 at 11:30 Vitals/I & O Vital Sign - Last 24 Hours 08/09/16 08/09/16 08/09/16 08/09/16 11:00 14:40 14:48 14:48 Temp 97.7 97.7 Pulse 83 83 83 Resp 14 B/P (MAP) 136/85 (102) 136/85 136/85 Pulse Ox 93 O2 Delivery Room Air Room Air 08/09/16 08/09/16 08/09/16 08/09/16 15:00 17:31 19:15 19:15 Temp 98.6 97.6 98.6 97.6 Pulse 98 95 77 Resp 20 B/P (MAP) 141/68 (92) 138/80 103/64 (77) Pulse Ox 94 O2 Delivery Room Air Room Air Room Air O2 Flow Rate 93.0 2.0 08/09/16 08/09/16 08/10/16 08/10/16 20:55 22:48 02:55 07:10 Temp 98.6 97.8 98.6 97.8 Pulse 79 66 B/P (MAP) 112/58 (76) 121/57 (78) Pulse Ox 96 97 97 O2 Delivery Room Air Room Air O2 Flow Rate 2.0 2.0 08/10/16 08/10/16 08/10/16 08/10/16 07:51 08:00 08:21 08:22 Temp 98.0 98.0 Pulse 81 89 Resp 21 B/P (MAP) 93/52 (66) 104/70 Pulse Ox 98 98 O2 Delivery Nasal Cannula Room Air Room Air O2 Flow Rate 2.0 2.0 08/10/16 08/10/16 10:51 10:52 Temp 98.2 98.2 Pulse 90 89 Resp 21 B/P (MAP) 126/80 (95) 126/80 Pulse Ox 97 O2 Delivery Room Air Intake and Output 08/09/16 08/09/16 08/10/16 14:59 22:59 06:59 Intake Total 480 ml 1500 ml 680 ml Output Total 2700 ml 825 ml 675 ml Balance -2220 ml 675 ml 5 ml ADITYA MELARA MD August 10, 2016 10:56
== END 2016-08-10 11:05 | disposition home or self-care (01) | DRG 292 ==
LOC: ER 04:08 → 2 NORTH 04:31
PROVIDERS: ADMIT Internal Medicine; ATTEND Internal Medicine
DX: I50.43 Acute on chronic combined systolic (congestive) and diastolic (congestive) heart failure (principal); Z68.43 Body mass index [BMI] 50.0-59.9, adult; I11.0 Hypertensive heart disease with heart failure; E78.5 Hyperlipidemia, unspecified; F41.9 Anxiety disorder, unspecified; I25.10 Atherosclerotic heart disease of native coronary artery without angina pectoris; E78.00 Pure hypercholesterolemia, unspecified; Z96.659 Presence of unspecified artificial knee joint; G62.9 Polyneuropathy, unspecified; I45.10 Unspecified right bundle-branch block; E66.01 Morbid (severe) obesity due to excess calories; F32.9 Major depressive disorder, single episode, unspecified; G89.29 Other chronic pain; M54.5 Low back pain; I25.5 Ischemic cardiomyopathy; I48.0 Paroxysmal atrial fibrillation; J44.9 Chronic obstructive pulmonary disease, unspecified; K21.9 Gastro-esophageal reflux disease without esophagitis; Z82.49 Family history of ischemic heart disease and other diseases of the circulatory system; Z87.442 Personal history of urinary calculi; Z91.11 Patient's noncompliance with dietary regimen; I25.2 Old myocardial infarction; Z91.19 Patient's noncompliance with other medical treatment and regimen; Z95.1 Presence of aortocoronary bypass graft; Z95.5 Presence of coronary angioplasty implant and graft; Z95.810 Presence of automatic (implantable) cardiac defibrillator; Z90.49 Acquired absence of other specified parts of digestive tract; Z88.0 Allergy status to penicillin; Z88.8 Allergy status to other drugs, medicaments and biological substances
CPT/HCPCS: 36415; 71010; 80048; 80053; 81001; 82553; 83880; 84484; 85007; 85027; 93005; 94640; 96374; J1940; J2270; 99285-25

== ENCOUNTER 2017-02-01 02:12 | Inpatient (IN) | payer MEDICARE, MEDICAID ==
[~2017-02-01] VITALS: Ht 180.3 cm; Wt 157.1 kg
[~2017-02-01 02:12] MED LIST changes: +EZET10TA18 PO; -EZET10TA3 PO; +HYDR2TAB31 PO; +OXYC40TA21 PO; -OXYM40TA PO; +OXYM40TA17 PO
[2017-02-01 02:28] LABS: BASO % 1 % (0-3); EOS % 2 % (0-3); HEMATOCRIT 40.2 % (39.0-53.0); LYMPH # 0.9 x10^3/uL (1.0-4.8); LYMPH % 15 % (24-48); MEAN CORPUSCULAR HEMOGLOBIN 29 pg (25-35); MEAN CORPUSCULAR HGB CONC 32 g/dL (31-37); MEAN CORPUSCULAR VOLUME 88 fL (79-100); MONO % 11 % (0-9); NEUT % 72 % (31-73); PLATELET COUNT 122 x10^3/uL (140-400); RED BLOOD COUNT 4.55 x10^6/uL (4.30-5.70); RED CELL DISTRIBUTION WIDTH 17.1 % (11.5-14.5); WHITE BLOOD COUNT 5.6 x10^3/uL (4.0-11.0)
[2017-02-01] MEDS ORDERED: NITROGLYCERIN OINT 1 GM PACKET. TP ONE (02:30)
[2017-02-01] MEDS ORDERED: ASPIRIN CHEWABLE 81 MG TABLET. PO ONE (02:30)
[2017-02-01 02:36] LABS: CALCIUM 8.9 mg/dL (8.5-10.1); GFR 79.8; POTASSIUM 4.1 mmol/L (3.5-5.1)
[2017-02-01 02:41] LABS: ALBUMIN 3.5 g/dL (3.4-5.0); ALBUMIN/GLOBULIN RATIO 0.8 (1.0-1.7)
[2017-02-01] MEDS ORDERED: NITROGLYCERIN SUBLINGUAL 0.4 MG BOTTLE OF 25. SL PRN (03:00)
[2017-02-01] MEDS ORDERED: FUROSEMIDE 40 MG/4 ML VIAL. IVP ONE (03:00)
[2017-02-01] MEDS ORDERED: KETOROLAC 15 MG/ML VIAL. IV ONE (03:00)
[2017-02-01] MEDS ORDERED: ONDANSETRON PF 4 MG/2 ML VIAL. IV PRN (03:00)
[2017-02-01] MEDS ORDERED: ACETAMINOPHEN 325 MG TABLET. PO PRN (03:00)
[2017-02-01] MEDS: MORPHINE SULFATE 4 MG/ML DISP.SYRIN. IV PRN ×8 (03:50→21:51)
[2017-02-01] MEDS ORDERED: INFLUENZA VAX SCREEN BY RX. MC ONE (04:45)
[2017-02-01] MEDS ORDERED: PNEUMOCOCCAL VAX SCREEN BY RX. MC ONE (04:45)
[2017-02-01] MEDS ORDERED: MORP30TA83 PO (04:55)
[2017-02-01] MEDS ORDERED: HYDR4TAB45 PO (04:56)
[2017-02-01 05:05] VITALS: BP 128/80
--- NOTE | 2017-02-01 06:05 | PHYS DOC ---
Past Medical History Past Medical History: A-Fib, Anxiety, CHF, Depression, GERD, High Cholesterol, Hypertension, Kidney Stone, MD Additional Past Medical Histor: CHRONIC PAIN, bone graft and muscle graft, SLEEP APNEA Past Surgical History: Cholecystectomy, Coronary Bypass Surgery, Knee Replacement, Pacemaker, Tonsillectomy, Other Additional Past Surgical Histo: cardiac stents(8), LEFT FEMUR SURGERY, karsten R femur, skin graft, LITHOTRIPSY Alcohol Use: None Drug Use: None Adult General Chief Complaint Chief Complaint: CHEST PAIN HPI HPI Patient is a 46 year old gentleman with history significant for CHF, CAD, hypertension who presents here today complaining of midsternal chest pain has been on intermittently now for approximately 1-2 hours. Patient has any fevers shakes chills. Patient has nausea with no vomiting or diarrhea. Patient reports he is short of breath. Patient complains of lower extremity edema. Patient denies any radiating pain. Patient denies any diaphoresis. Patient reports the pain is having today is similar to his prior MD pain however it does feel similar to his prior congestive heart failure-type pain. Patient does have some orthopnea. Patient has no fevers shakes chills nausea vomiting diarrhea cough cold rhinorrhea. Patient reports he's been compliant with his medications. Patient reports he has a history of cardiac myopathy with an EF of 20%. Patient still endorses continue to smoke approximately half a pack per day. Review of systems: Constitutional: Denies fever or chills Eyes: Denies change in visual acuity, redness, or eye pain HENT: Denies nasal congestion or sore throat Respiratory: Positive for shortness of breath. All other systems were reviewed and found to be within normal limits, except as documented in this note. Physical exam: Constitutional: Well developed, well nourished, no acute distress, non-toxic appearance. HENT: Normocephalic,bilateral external ears normal, oropharynx moist, no oral exudates, nose normal. Eyes: PERRLA, EOMI, conjunctiva normal, no discharge. Neck: Normal range of motion, no tenderness, supple, no stridor. Cardiovascular:Heart rate regular rhythm, Lungs & Thorax: Bilateral breath sounds clear to auscultation Abdomen: Bowel sounds normal, soft, no tenderness, no masses, no pulsatile masses. Skin: Warm, dry, no erythema, no rash. Back: No tenderness, no CVA tenderness. Extremities: No tenderness, no cyanosis, no clubbing, ROM intact, brawny bilateral lower extremity edema. Neurologic: Alert and oriented X 3, normal motor function, normal sensory function, no focal deficits noted. Psychologic: Affect normal, judgement normal, mood normal. Chest x-ray reveals markedly enlarged heart no infiltrates or effusions increase perihilar markings consistent with congestive heart failure. As interpreted by ER Kevon. Patient's EKG reveals a paced rhythm with a right bundle branch block with nonspecific ST-T wave abnormalities no evidence of acute STEMI as interpreted by ER M.D. His labs were significant for an elevated BNP of 1856. Assessment and plan: 1. Chest pain: 46-year-old gentleman with significant cardiac history for congestive heart failure CAD status post CABG who presents here today complaining of chest pain that he feels is more consistent with his prior heart failure pain. Patient's clinically and hemodynamically stable. Patient has been given several nitroglycerin and aspirin by EMS. Patient be given nitro paste here in the ED as well as 80 of IV Lasix to assist with diuresis. Patient also be given Toradol IV to assist with his pain and discomfort. Patient's troponin is unremarkable and his EKG does not reveal acute STEMI. Given patient's significant cardiac history and his current symptoms patient will need to be admitted for further observation, diuresis. Critical care time 35 minutes reutilized and treatment and management of this patient's congestive heart failure, pulmonary edema, chest pain/unstable angina. Current Medications Current Medications Current Medications Medications (Trade) Dose Ordered Sig/[facility] Start Time Stop Time Status Last Admin Dose Admin Acetaminophen (Tylenol) 650 mg PRN Q4HRS PRN 02/01/17 03:00 02/02/17 02:59 Aspirin (Children'S Aspirin) 324 mg 1X ONCE 02/01/17 02:30 02/01/17 02:31 DC Furosemide (Lasix) 80 mg 1X ONCE 02/01/17 03:00 02/01/17 03:03 DC 02/01/17 03:02 80 MG Ketorolac Tromethamine (Toradol) 15 mg 1X ONCE 02/01/17 03:00 02/01/17 03:03 DC 02/01/17 03:02 15 MG Morphine Sulfate 2 mg PRN Q2HR PRN 02/01/17 03:00 02/02/17 02:59 02/01/17 05:55 2 MG Nitroglycerin (Nitro-Bid Oint) 1 inch 1X ONCE 02/01/17 02:30 02/01/17 02:31 DC 02/01/17 02:58 1 INCH Nitroglycerin (Nitrostat) 0.4 mg PRN Q5MIN PRN 02/01/17 03:00 02/02/17 02:59 Ondansetron HCl (Zofran) 4 mg PRN Q8HRS PRN 02/01/17 03:00 02/02/17 02:59 Allergies Allergies Allergies Coded Allergies Type Severity Reaction Last Updated Verified buprenorphine Allergy Severe Anaphylaxis 07/22/16 Yes naloxone Allergy Severe Anaphylaxis 07/22/16 Yes Penicillins Allergy Intermediate RESPIRATORY DISTRESS,HIVES 05/09/16 Yes Current Patient Data Vital Signs Vital Signs Date Time Temp Pulse Resp B/P (MAP) Pulse Ox O2 Delivery O2 Flow Rate FiO2 02/01/17 02:58 97 117/65 02/01/17 02:50 28 96 Room Air 02/01/17 02:25 97.6 97.6 Lab Values Laboratory Tests Test 02/01/17 02:15 White Blood Count 5.6 x10^3/uL (4.0-11.0) Red Blood Count 4.55 x10^6/uL (4.30-5.70) Hemoglobin 13.0 g/dL (13.0-17.5) Hematocrit 40.2 % (39.0-53.0) Mean Corpuscular Volume 88 fL (79-100) Mean Corpuscular Hemoglobin 29 pg (25-35) Mean Corpuscular Hemoglobin Concent 32 g/dL (31-37) Red Cell Distribution Width 17.1 % (11.5-14.5) H Platelet Count 122 x10^3/uL (140-400) L Neutrophils (%) (Auto) 72 % (31-73) Lymphocytes (%) (Auto) 15 % (24-48) L Monocytes (%) (Auto) 11 % (0-9) H Eosinophils (%) (Auto) 2 % (0-3) Basophils (%) (Auto) 1 % (0-3) Neutrophils # (Auto) 4.0 x10^3uL (1.8-7.7) Lymphocytes # (Auto) 0.9 x10^3/uL (1.0-4.8) L Monocytes # (Auto) 0.6 x10^3/uL (0.0-1.1) Eosinophils # (Auto) 0.1 x10^3/uL (0.0-0.7) Basophils # (Auto) 0.0 x10^3/uL (0.0-0.2) Sodium Level 139 mmol/L (136-145) Potassium Level 4.1 mmol/L (3.5-5.1) Chloride Level 106 mmol/L (98-107) Carbon Dioxide Level 24 mmol/L (21-32) Anion Gap 9 (6-14) Blood Urea Nitrogen 10 mg/dL (8-26) Creatinine 1.0 mg/dL (0.7-1.3) Estimated GFR (Cockcroft-Gault) 79.8 BUN/Creatinine Ratio 10 (6-20) Glucose Level 110 mg/dL (70-99) H Calcium Level 8.9 mg/dL (8.5-10.1) Total Bilirubin 1.0 mg/dL (0.2-1.0) Aspartate Amino Transferase (AST) 31 U/L (15-37) Alanine Aminotransferase (ALT) 28 U/L (16-63) Alkaline Phosphatase 127 U/L (46-116) H Troponin I Quantitative 0.018 ng/mL (0.000-0.055) YM-Whm-L-Type Natriuretic Peptide 1856 pg/mL (0-124) H Total Protein 8.0 g/dL (6.4-8.2) Albumin 3.5 g/dL (3.4-5.0) Albumin/Globulin Ratio 0.8 (1.0-1.7) L Laboratory Tests 02/01/17 02:15 Laboratory Tests 02/01/17 02:15 EKG EKG [] Radiology/Procedures Radiology/Procedures [] Course & Med Decision Making Course & Med Decision Making Pertinent Labs and Imaging studies reviewed. (See chart for details) [] Dragon Disclaimer Dragon Disclaimer This electronic medical record was generated, in whole or in part, using a voice recognition dictation system. Departure Departure Impression: Primary Impression: CHF exacerbation Additional Impression: Unstable angina Disposition: 09 ADMITTED INPATIENT Admitting Physician: Other (reusch) Condition: STABLE Referrals: RUDDY,ANDREA M (PCP) Problem Qualifiers KENYA FELTON MD Feb 01, 2017 06:05
--- NOTE | 2017-02-01 06:06 | EKG ---
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
[2017-02-01 07:15] VITALS: BP 112/66
--- NOTE | 2017-02-01 08:11 | RAD ---
EXAM: Chest one view. HISTORY: Chest pain. COMPARISON: 08/09/2016. FINDINGS: A frontal view of the chest is obtained. A left-sided pacer/defibrillator has its leads in the right atrium and right ventricle. There are changes of coronary artery bypass grafting. There are no confluent infiltrates. There is no pneumothorax or pleural effusion. The heart is moderately enlarged. IMPRESSION: 1. Moderate cardiomegaly.
[2017-02-01] MEDS ORDERED: PNEUMOC CONJ VACC 23-VALENT 0.5 ML VIAL. VAX IM ONE (09:00)
[2017-02-01] MEDS ORDERED: FLU VACC QS2017-18 (36MOS+)/PF 0.5 ML SYRINGE. VAX IM ONE (09:00)
[2017-02-01 10:30] VITALS: BP 107/67
--- NOTE | 2017-02-01 10:35 | PDOC2 ---
DELBERT TEJEDA MANAGER LIGHTING 02/01/17 1035: CARDIAC CONSULT DATE OF CONSULT Date of Consult DATE: 02/01/17 TIME: 10:29 REASON FOR CONSULT Reason for Consult: unstable angina, chf REFERRING PHYSICIAN Referring Physician: Nanci SOURCE Source: Chart review, Patient HISTORY OF PRESENT ILLNESS HISTORY OF PRESENT ILLNESS This is a pleasant 46 yo male admitted for complains of SOA and chest pain. Reports that he started ahving some HARVEY the other day and also mid chest pressure radiating to his right shoulder. This is reproducible to palpation. Pt does have spinal stenosis and is chronic high dose opioids. He has seen his insecticide sprayer 2 months ago at [facility] and also sees pain management as an outpt. Whe he has CHF symptoms he doubles his lasix. He has not had recurrence of his previous symptoms as an inpt. Denies any palpitations, nausea, dizziness, no orthopnea. Verbalized compliance with his medications, diet restrictions. PAST MEDICAL HISTORY Past Medical History Cardiovascular: AFIB, CAD (CABG), CHF, HTN, LA, Hyperlipidemia, Other Pulmonary: Other CENTRAL NERVOUS SYSTEM: Periperal neuropathy GI: GERD Heme/Onc: No pertinent hx Hepatobiliary: No pertinent hx Psych: Anxiety Musculoskeletal: low back pain, Osteoarthritis, Other Rheumatologic: No pertinent hx Infectious disease: No pertinent hx Renal/: Chronic renal insuff, hydronephrosis Endocrine: No pertinent hx PAST SURGICAL HISTORY Past Surgical History Pacemaker (AICD), Cholecystectomy, CABG, Total knee replacement, Tonsillectomy, left ureteral stent FAMILY HISTORY Family History: Coronary Artery Disease SOCIAL HISTORY Smoke: No ALCOHOL: none Drugs: None Lives: with Family CURRENT MEDICATIONS CURRENT MEDICATIONS Current Medications Medications (Trade) Dose Ordered Sig/Frank Route PRN Reason Start Time Stop Time Status Last Admin Dose Admin Nitroglycerin (Nitro-Bid Oint) 1 inch 1X ONCE TP 02/01/17 02:30 02/01/17 02:31 DC 02/01/17 02:58 Furosemide (Lasix) 80 mg 1X ONCE IVP 02/01/17 03:00 02/01/17 03:03 DC 02/01/17 03:02 Ketorolac Tromethamine (Toradol) 15 mg 1X ONCE IV 02/01/17 03:00 02/01/17 03:03 DC 02/01/17 03:02 Morphine Sulfate 2 mg PRN Q2HR PRN IV PAIN 02/01/17 03:00 02/02/17 02:59 02/01/17 10:10 ALLERGIES ALLERGIES: Coded Allergies: buprenorphine (Verified Allergy, Severe, Anaphylaxis, 07/22/16) naloxone (Verified Allergy, Severe, Anaphylaxis, 07/22/16) Penicillins (Verified Allergy, Intermediate, RESPIRATORY DISTRESS,HIVES, ) ROS Review of System 14 point ROS evaluated with pertinent positives noted per HPI PHYSICAL EXAM General: Alert, Oriented X3, Cooperative, No acute distress HEENT: Atraumatic, Mucous membr. moist/pink Lungs: Other (diminished bases) Abdomen: Soft, No tenderness, Other (obese) Extremities: No cyanosis, Other (1+ bilateral LE pitting edema) Skin: No significant lesion Neuro: Normal speech, Sensation intact Psych/Mental Status: Mood NL MUSCULOSKELETAL: Osteoarthritic changes both hands VITALS VITALS Vital Signs Date Time Temp Pulse Resp B/P (MAP) Pulse Ox O2 Delivery O2 Flow Rate FiO2 02/01/17 10:10 95 Room Air 02/01/17 07:15 97.5 86 24 112/66 (81) 97.5 LABS Lab: Laboratory Tests Test 02/01/17 02:15 02/01/17 09:10 White Blood Count 5.6 x10^3/uL (4.0-11.0) Red Blood Count 4.55 x10^6/uL (4.30-5.70) Hemoglobin 13.0 g/dL (13.0-17.5) Hematocrit 40.2 % (39.0-53.0) Mean Corpuscular Volume 88 fL (79-100) Mean Corpuscular Hemoglobin 29 pg (25-35) Mean Corpuscular Hemoglobin Concent 32 g/dL (31-37) Red Cell Distribution Width 17.1 % (11.5-14.5) Platelet Count 122 x10^3/uL (140-400) Neutrophils (%) (Auto) 72 % (31-73) Lymphocytes (%) (Auto) 15 % (24-48) Monocytes (%) (Auto) 11 % (0-9) Eosinophils (%) (Auto) 2 % (0-3) Basophils (%) (Auto) 1 % (0-3) Neutrophils # (Auto) 4.0 x10^3uL (1.8-7.7) Lymphocytes # (Auto) 0.9 x10^3/uL (1.0-4.8) Monocytes # (Auto) 0.6 x10^3/uL (0.0-1.1) Eosinophils # (Auto) 0.1 x10^3/uL (0.0-0.7) Basophils # (Auto) 0.0 x10^3/uL (0.0-0.2) Sodium Level 139 mmol/L (136-145) Potassium Level 4.1 mmol/L (3.5-5.1) Chloride Level 106 mmol/L (98-107) Carbon Dioxide Level 24 mmol/L (21-32) Anion Gap 9 (6-14) Blood Urea Nitrogen 10 mg/dL (8-26) Creatinine 1.0 mg/dL (0.7-1.3) Estimated GFR (Cockcroft-Gault) 79.8 BUN/Creatinine Ratio 10 (6-20) Glucose Level 110 mg/dL (70-99) Calcium Level 8.9 mg/dL (8.5-10.1) Total Bilirubin 1.0 mg/dL (0.2-1.0) Aspartate Amino Transf (AST/SGOT) 31 U/L (15-37) Alanine Aminotransferase (ALT/SGPT) 28 U/L (16-63) Alkaline Phosphatase 127 U/L (46-116) Troponin I Quantitative 0.018 ng/mL (0.000-0.055) 0.025 ng/mL (0.000-0.055) VN-Api-B-Type Natriuretic Peptide 1856 pg/mL (0-124) Total Protein 8.0 g/dL (6.4-8.2) Albumin 3.5 g/dL (3.4-5.0) Albumin/Globulin Ratio 0.8 (1.0-1.7) ECHOCARDIOGRAM ECHOCARDIOGRAM <Conclusion> Technically difficult study. The Left Ventricle is mildly dilated. Left ventricle systolic function is severely impaired. The Ejection Fraction is estimated at 20-25%. There is severe global hypokinesis of the left ventricle. RV systolic function is mildly reduced. There is no significant aortic valvular stenosis. Doppler and Color Flow revealed no significant aortic regurgitation. Doppler and Color Flow revealed mild mitral valve regurgitation. Doppler and Color Flow revealed moderate tricuspid regurgitation. The pulmonary artery systolic pressure is estimated at 43 mmHg. DATE: 05/08/16 1356 STRESS TEST STRESS TEST Conclusion 1. Regadenoson cardioisotope stress test showed large infarct involving the mid to distal anterior wall and the entire apical wall with small amount of gila- infarct ischemia. 2. Severe global left ventricle systolic dysfunction and akinetic apical wall with ejection fraction calculated at 18%. 3. Intermediate risk for cardiac events based on diminished left ventricular function. DATE: 05/09/16 1422 ASSESSMENT/PLAN ASSESSMENT/PLAN 1. Atypical CP: reproducible with palpation. Likely MSK. Recent unremarkable MPI. Troponin series normal, EKG with no acute changes. 2. CAD: CABG 2 yrs ago, 3. Hypertension: controlled 4. Ischemic Cardiomyopathy: ACID in situ ([place]) 5. PAFIB: Presently in sinus rhythm 6. Morbid obesity: BMI 49 7. COPD with continued tobaccoism 8. hx of Noncompliance: notable for past drug seeking behavior 9. Likely VALERY 10. Chronic pain syndrome with spinal stenosis and high dose opioid usage. 11. Acute on chronic systolic CHF: compensated Recommendations 1. Continue with present regimen 2. Follow up TTE and interrogate device 3. Follow up with his [facility] insecticide sprayer when discharged. Problems: ADITYA MELARA MD 02/01/17 1651: CARDIAC CONSULT ALLERGIES ALLERGIES: Coded Allergies: buprenorphine (Verified Allergy, Severe, Anaphylaxis, 07/22/16) naloxone (Verified Allergy, Severe, Anaphylaxis, 07/22/16) Penicillins (Verified Allergy, Intermediate, RESPIRATORY DISTRESS,HIVES, ) ASSESSMENT/PLAN ASSESSMENT/PLAN Patient seen and examined. Agree with CHAIR MECHANIC's assessment and plan. Chest pain with atypical features and most probably musculoskeletal. Recent Lexiscan nuclear stress test did not show any significant ischemia. Chronic systolic heart failure well compensated. LVEF 20% on 2-D echocardiogram. Maintaining sinus rhythm. Continue current medical regimen. Thank you for your consultation. Problems: DELBERT TEJEDA APRN Feb 01, 2017 10:35 ADITYA MELARA MD Feb 01, 2017 16:51
[2017-02-01] MEDS ORDERED: LIDOCAINE (700MG/PATCH) PATCH. TP SCH (11:00)
[2017-02-01] MEDS: OMEGA-3 FATTY ACIDS/FISH OIL 1,000 MG CAPSULE. PO SCH (11:36)
[2017-02-01] MEDS: PANTOPRAZOLE 40 MG TABLET.DR. PO SCH (11:36)
[2017-02-01] MEDS: ISOSORBIDE MONONITRATE ER 30 MG TAB.ER.24H PO SCH (11:36)
[2017-02-01] MEDS: FUROSEMIDE 40 MG TABLET. PO SCH ×2 (11:36→14:10)
[2017-02-01] MEDS: LISINOPRIL 10 MG TABLET PO SCH (11:37)
[2017-02-01] MEDS: CARVEDILOL 12.5 MG TABLET. PO SCH ×2 (11:37→17:21)
[2017-02-01] MEDS ORDERED: PERFLUTREN PROTEIN-A MICROSPHR 0.22 MG/ML 3 ML VIAL. IV ONE ×2 (13:29→13:45)
[2017-02-01] MEDS: MORPHINE ER 30 MG TABLET.ER PO SCH ×2 (14:11→20:46)
--- NOTE | 2017-02-01 14:25 | CARD ---
APPROVED REPORT EXAM: Two-dimensional and M-mode echocardiogram with Doppler and color Doppler. Other Information Quality : Technically Limited Technically limited study due to body habitus. INDICATION Congestive Heart Failure 2D DIMENSIONS RVDd3.8 (2.9-3.5cm)Left Atrium(2D)5.3 (1.6-4.0cm) IVSd0.9 (0.7-1.1cm)Aortic Root(2D)3.2 (2.0-3.7cm) LVDd7.7 (3.9-5.9cm)LVOT Diameter2.2 (1.8-2.4cm) PWd1.0 (0.7-1.1cm)LVDs7.0 (2.5-4.0cm) FS (%) 9.4 %SV62.7 ml Aortic Valve AoV Peak Wali.114.9cm/sAoV VTI21.6cm AO Peak GR.5.3mmHgLVOT Peak Wali.72.4cm/s LVOT VTI 14.39cmAO Mean GR.3mmHg OLIVIA (VMAX)2.54dc2HZO (VTI)2.63cm2 Mitral Valve MV E Lkojuore70.0cm/sMV DECEL IDIN933de MV HTP01fvMGC (PHT)5.15cm2 TDI E/Lateral E'12.1E/Medial E'31.1 Tricuspid Valve TR P. Xhykwgay617tr/sRAP NIGLWZLJ2wpXu TR Peak Gr.50ykKlRHGR19qyUz Pulmonary Vein S1 Ojqvkjdx07.9cm/sD2 Jndkvjnu92.0cm/s LEFT VENTRICLE Technically difficult study. The Left Ventricle is moderate to severely dilated. There is normal left ventricular wall thickness. The ejection fraction is severely impaired. The Ejection Fraction is est imated at 20%. There is severe global hypokinesis of the left ventricle. RIGHT VENTRICLE The right ventricle is normal size. The right ventricular systolic function appears normal. There is a device lead in the right ventricle. ATRIA The left atrium is moderately dilated. The right atrium is mildly dilated. A device lead is seen in t he right atrium consistent with history. The interatrial septum is intact with no evidence for an atr ial septal defect or patent foramen ovale as noted on 2-D or Doppler imaging. AORTIC VALVE The aortic valve is not well visualized but appears to be functioning normally by Doppler interrogati on. Doppler and Color Flow revealed no significant aortic regurgitation. There is no significant aort ic valvular stenosis. MITRAL VALVE The mitral valve is normal in structure and function. There is no evidence of mitral valve prolapse. There is no mitral valve stenosis. Doppler and Color-flow revealed mild mitral regurgitation. TRICUSPID VALVE The tricuspid valve is normal in structure and function. Doppler and Color Flow revealed mild tricusp id regurgitation. There is moderate pulmonary hypertension. The PA pressure was estimated at 49 mmHg. There is no tricuspid valve stenosis. PULMONIC VALVE The pulmonic valve is not well visualized but appears to be functioning normally by Doppler interroga tion. Doppler and Color Flow revealed no pulmonic valvular regurgitation. There is no pulmonic valvul ar stenosis. GREAT VESSELS The aortic root is normal in size. The ascending aorta is normal in size. The IVC was not visualized. PERICARDIAL EFFUSION There is no evidence of significant pericardial effusion. Critical Notification Critical Value: No <Conclusion> Technically difficult study. The Left Ventricle is moderate to severely dilated. The ejection fraction is severely impaired. The Ejection Fraction is estimated at 20%. There is severe global hypokinesis of the left ventricle. There is a device lead in the right ventricle. There is no significant aortic valvular stenosis. Doppler and Color Flow revealed no significant aortic regurgitation. Doppler and Color-flow revealed mild mitral regurgitation. Doppler and Color Flow revealed mild tricuspid regurgitation. There is moderate pulmonary hypertension. The PA pressure was estimated at 49 mmHg.
[2017-02-01 14:50] VITALS: BP 97/52
--- NOTE | 2017-02-01 17:37 | HP ---
ADMIT DATE: 02/01/2017 CHIEF COMPLAINT: Shortness of breath, chest pain. HISTORY OF PRESENT ILLNESS: The patient is a pleasant 46-year-old male who has known coronary artery disease. He has got 8 previous stents. He has got an AICD and pacemaker. He has got a 20% ejection fraction. He has had 2 bypass surgeries and a known history of heart failure. Once again he presents with shortness of breath and chest pain. We suspect he has got acute on chronic systolic and diastolic heart failure and/or angina. We are going to admit the patient and consult Cardiology. PAST MEDICAL HISTORY: As above. He has had multiple coronary issues including stents and permanent pacemaker, EF of 20% with heart failure, 2 bypasses, hypertension, MD, hyperlipidemia, neuropathy, chronic back pain, chronic renal insufficiency, hydronephrosis. ALLERGIES: PENICILLIN, NUBAIN and NALOXONE. FAMILY HISTORY: Coronary artery disease. SOCIAL HISTORY: Does not drink, smoke or take drugs. MEDICATIONS: Reviewed. REVIEW OF SYSTEMS:REVIEW OF SYSTEMS: GENERAL: No history of weight change, weakness or fevers. SKIN: No bruising, hair changes or rashes. EYES: No blurred, double or loss of vision. NOSE AND THROAT: No history of nosebleeds, hoarseness or sore throat. HEART: He complains of chest pain. LUNGS: He complains of shortness of breath. GASTROINTESTINAL: Denies changes in appetite, nausea, vomiting, diarrhea or constipation. GENITOURINARY: No history of frequency, urgency, hesitancy or nocturia. NEUROLOGIC: Denies history of numbness, tingling, tremor or weakness. PSYCHIATRIC: No history of panic, anxiety or depression. ENDOCRINE: No history of heat or cold intolerance, polyuria or polydipsia. EXTREMITIES: Denies muscle weakness, joint pain, pain on walking or stiffness. PHYSICAL EXAMINATION: VITAL SIGNS: Temperature afebrile, pulse 92, respirations 18, blood pressure 146/90. GENERAL: He is alert, cooperative. HEART: Normal S1, S2 with a soft S3. LUNGS: Bibasilar crackles. ABDOMEN: Soft, distended. EXTREMITIES: 2+ edema. ENDOCRINE: No thyromegaly. LYMPHATICS: No cervical nodes. HEMATOPOIETIC: No bruising. LABORATORY DATA: Reviewed. Chest x-ray shows cardiomegaly and vascular congestion. ASSESSMENT AND PLAN: Chest pain and acute on chronic systolic and diastolic heart failure. The patient has been admitted. We will check serial enzymes, serial EKGs, cardiac monitoring. Daily aspirin. Continue home medicines. Consult Pulmonary. Frequent labs. PROGNOSIS: Guarded. WALLY ESQUEDA DO DR: SHAYNA/[place] JOB#: [id number] / [id number]
[2017-02-01 18:40] VITALS: BP 100/56
[2017-02-01] MEDS ORDERED: ATORVASTATIN CALCIUM 40 MG TABLET. PO SCH (21:00)
[2017-02-01] MEDS ORDERED: NIACIN ER 500 MG TABLET.ER PO SCH (21:00)
[2017-02-01] MEDS ORDERED: EZETIMIBE 10 MG TABLET. PO SCH (21:00)
[2017-02-01 23:15] VITALS: BP 100/53
[2017-02-02] MEDS: MORPHINE SULFATE 4 MG/ML DISP.SYRIN. IV PRN (00:29)
[2017-02-02 03:01] VITALS: BP 100/55
[2017-02-02] MEDS: MORPHINE ER 30 MG TABLET.ER PO SCH ×2 (06:09→14:05)
[2017-02-02 07:32] VITALS: BP 99/69
[2017-02-02] MEDS: OMEGA-3 FATTY ACIDS/FISH OIL 1,000 MG CAPSULE. PO SCH (07:55)
[2017-02-02] MEDS: MORPHINE SULFATE 2 MG/ML DISP.SYRIN. IV PRN ×3 (07:55→12:35)
[2017-02-02] MEDS: ISOSORBIDE MONONITRATE ER 30 MG TAB.ER.24H PO SCH (07:56)
[2017-02-02] MEDS: PANTOPRAZOLE 40 MG TABLET.DR. PO SCH (07:56)
[2017-02-02] MEDS: CARVEDILOL 12.5 MG TABLET. PO SCH (07:56)
[2017-02-02] MEDS: FUROSEMIDE 40 MG TABLET. PO SCH ×2 (09:00→14:05)
[2017-02-02] MEDS ORDERED: ASPIRIN ENTERIC COATED 81 MG TABLET.DR. PO SCH (09:00)
[2017-02-02] MEDS ORDERED: FLUTICASONE 50MCG/NASAL SPRAY 16GM BOTTLE. NS PRN (09:00)
[2017-02-02 10:55] VITALS: BP 99/54
[2017-02-02] MEDS: LISINOPRIL 10 MG TABLET PO SCH (12:41)
--- NOTE | 2017-02-02 13:15 | PDOC ---
PROGRESS NOTES Chief Complaint Chief Complaint Chest pain A-Fib Anxiety CHF Depression GERD High Cholesterol Hypertension Kidney Stone [place] Sleep Apnea History of Present Illness History of Present Illness Pt lying in bed. Vitals Vitals Vital Signs Date Time Temp Pulse Resp B/P (MAP) Pulse Ox O2 Delivery O2 Flow Rate FiO2 02/02/17 12:41 83 99/54 02/02/17 12:35 Room Air 02/02/17 10:55 97.9 18 93 97.9 Physical Exam General: Alert, Cooperative, No acute distress Heart: Regular rate, Normal S1, Normal S2 Lungs: Clear Labs LABS Laboratory Tests Test 02/01/17 15:10 Troponin I Quantitative 0.034 ng/mL (0.000-0.055) Review of Systems Review of Systems Admits to chest pain, denies shortness of breath Assessment and Plan Assessmemt and Plan Problems Medical Problems: (1) CHF exacerbation Status: Acute ASSESSMENT: Chest pain A-Fib Anxiety CHF Depression GERD High Cholesterol Hypertension Kidney Stone [place] Sleep Apnea PLAN: Continue cardiac monitoring Continue to diurese Await further cardiac input Discontinue when ok with cardiology Continue BP medication PT/OT consult Problems: Comment Review of Relevant I have reviewed the following items iqan (where applicable) has been applied. Labs Laboratory Tests Test 02/01/17 02:15 02/01/17 09:10 02/01/17 15:10 White Blood Count 5.6 x10^3/uL (4.0-11.0) Red Blood Count 4.55 x10^6/uL (4.30-5.70) Hemoglobin 13.0 g/dL (13.0-17.5) Hematocrit 40.2 % (39.0-53.0) Mean Corpuscular Volume 88 fL (79-100) Mean Corpuscular Hemoglobin 29 pg (25-35) Mean Corpuscular Hemoglobin Concent 32 g/dL (31-37) Red Cell Distribution Width 17.1 % (11.5-14.5) Platelet Count 122 x10^3/uL (140-400) Neutrophils (%) (Auto) 72 % (31-73) Lymphocytes (%) (Auto) 15 % (24-48) Monocytes (%) (Auto) 11 % (0-9) Eosinophils (%) (Auto) 2 % (0-3) Basophils (%) (Auto) 1 % (0-3) Neutrophils # (Auto) 4.0 x10^3uL (1.8-7.7) Lymphocytes # (Auto) 0.9 x10^3/uL (1.0-4.8) Monocytes # (Auto) 0.6 x10^3/uL (0.0-1.1) Eosinophils # (Auto) 0.1 x10^3/uL (0.0-0.7) Basophils # (Auto) 0.0 x10^3/uL (0.0-0.2) Sodium Level 139 mmol/L (136-145) Potassium Level 4.1 mmol/L (3.5-5.1) Chloride Level 106 mmol/L (98-107) Carbon Dioxide Level 24 mmol/L (21-32) Anion Gap 9 (6-14) Blood Urea Nitrogen 10 mg/dL (8-26) Creatinine 1.0 mg/dL (0.7-1.3) Estimated GFR (Cockcroft-Gault) 79.8 BUN/Creatinine Ratio 10 (6-20) Glucose Level 110 mg/dL (70-99) Calcium Level 8.9 mg/dL (8.5-10.1) Total Bilirubin 1.0 mg/dL (0.2-1.0) Aspartate Amino Transf (AST/SGOT) 31 U/L (15-37) Alanine Aminotransferase (ALT/SGPT) 28 U/L (16-63) Alkaline Phosphatase 127 U/L (46-116) Troponin I Quantitative 0.018 ng/mL (0.000-0.055) 0.025 ng/mL (0.000-0.055) 0.034 ng/mL (0.000-0.055) FK-Cbv-B-Type Natriuretic Peptide 1856 pg/mL (0-124) Total Protein 8.0 g/dL (6.4-8.2) Albumin 3.5 g/dL (3.4-5.0) Albumin/Globulin Ratio 0.8 (1.0-1.7) Laboratory Tests Test 02/01/17 15:10 Troponin I Quantitative 0.034 ng/mL (0.000-0.055) Medications Current Medications Nitroglycerin (Nitro-Bid Oint) 1 inch 1X ONCE TP Last administered on t 02:58; Start 02/01/17 at 02:30; Stop 02/01/17 at 02:31; Status DC Aspirin (Children'S Aspirin) 324 mg 1X ONCE PO ; Start 02/01/17 at 02:30; Stop 02/01/17 at 02:31; Status DC Furosemide (Lasix) 80 mg 1X ONCE IVP Last administered on 02/01/17 03:02; Start 02/01/17 at 03:00; Stop 02/01/17 at 03:03; Status DC Ketorolac Tromethamine (Toradol) 15 mg 1X ONCE IV Last administered on 03:02; Start 02/01/17 at 03:00; Stop 02/01/17 at 03:03; Status DC Ondansetron HCl (Zofran) 4 mg PRN Q8HRS PRN IV NAUSEA/VOMITING; Start at 03:00; Stop 02/02/17 at 02:59; Status DC Morphine Sulfate 2 mg PRN Q2HR PRN IV PAIN Last administered on 02/02/17 00: 29; Start 02/01/17 at 03:00; Stop 02/02/17 at 02:59; Status DC Acetaminophen (Tylenol) 650 mg PRN Q4HRS PRN PO FEVER; Start 02/01/17 at 03:00 ; Stop 02/02/17 at 02:59; Status DC Nitroglycerin (Nitrostat) 0.4 mg PRN Q5MIN PRN SL CHEST PAIN; Start 02/01/17 at 03:00; Stop 02/02/17 at 02:59; Status DC Info (Do NOT chart on this placeholder) 1 each 1X ONCE MC ; Start 02/01/17 at 04:45; Stop 02/01/17 at 04:46; Status UNV Pneumococcal Polyvalent Vaccine (Do NOT chart on this placeholder) 1 each 1X ONCE MC ; Start 02/01/17 at 04:45; Stop 02/01/17 at 04:46; Status UNV Influenza Virus Vaccine Quadrival (Fluarix Quad [id number] Syringe) 0.5 ml ONCE ONCE VAX IM Last administered on 02/01/17 14:14; Start 02/01/17 at 09:00; Stop 02/01/17 at 09:01; Status DC Pneumococcal Polyvalent Vaccine (Pneumovax 23) 0.5 ml ONCE ONCE VAX IM Last administered on 02/01/17 14:13; Start 02/01/17 at 09:00; Stop 02/01/17 at 09 :01; Status DC Aspirin (Ecotrin) 81 mg DAILY PO Last administered on 02/02/17 07:55; Start 02/02/17 at 09:00 EZETIMIBE (Zetia) 10 mg HS PO Last administered on 02/01/17 20:46; Start at 21:00 Furosemide (Lasix) 40 mg BID92 PO Last administered on 02/01/17 14:10; Start 02/01/17 at 10:30 Lidocaine (Lidoderm) 1 patch DAILY TP ; Start 02/01/17 at 11:00; Stop at 12:19; Status DC Lisinopril (Prinivil) 10 mg DAILYWLUN PO Last administered on 02/02/17 12:41 ; Start 02/01/17 at 12:00 Morphine Sulfate (Ms Contin) 30 mg TID PO Last administered on 02/02/17 06:09 ; Start 02/01/17 at 14:00 Niacin (Slo-Niacin) 500 mg QHS PO Last administered on 02/01/17 20:45; Start 02/01/17 at 21:00 Fish Oil (Fish Oil) 1,000 mg DAILY PO Last administered on 02/02/17 07:55; Start 02/01/17 at 11:00 Carvedilol (Coreg) 25 mg BIDWMEALS PO Last administered on 02/02/17 07:56; Start 02/01/17 at 11:00 Pantoprazole Sodium (Protonix) 40 mg DAILYAC PO Last administered on 07:56; Start 02/01/17 at 11:00 Fluticasone Propionate (Flonase) 2 spray PRN DAILY PRN NS ALLERGIES; Start at 09:00 Isosorbide Mononitrate (Imdur) 60 mg DAILY PO Last administered on 02/02/17 07:56; Start 02/01/17 at 11:00 Atorvastatin Calcium (Lipitor) 80 mg QHS PO Last administered on 02/01/17 20: 45; Start 02/01/17 at 21:00 Perflutren Protein Type A Microsphe (Optison) 0.66 mg STK-MED ONCE IV ; Start 02/01/17 at 13:29; Stop 02/01/17 at 13:30; Status DC Perflutren Protein Type A Microsphe (Optison) 0.66 mg 1X ONCE IV ; Start 02/01 at 13:45; Stop 02/01/17 at 13:51; Status DC Morphine Sulfate 2 mg PRN Q2HR PRN IV PAIN Last administered on 02/02/17t 12: 35; Start 02/02/17 at 07:45 Active Scripts Active Lidoderm (Lidocaine) 700 Mg Adh..patch 1 Patch TP DAILY Reported Dilaudid (Hydromorphone Hcl) 4 Mg Tablet 1 Tab PO QID Ms Contin (Morphine Sulfate) 30 Mg Tablet.er 1 Tab PO TID Oxycontin (Oxycodone HCl) 40 Mg Tab.er.12h 40 Mg PO BID Zofran (Ondansetron Hcl) 4 Mg Tablet 1 Tab PO Q8HRS PRN Fish Oil 1,000 Mg Capsule (Success-3 Fatty Acids/Fish Oil) 1 Each Capsule 1 Each PO DAILY [Ntroglycerin [place]] PRN PRN Lisinopril 10 Mg Tablet 1 Tab PO DAILYWLUN Isosorbide Mononitrate Er (Isosorbide Mononitrate) 60 Mg Tab.er.24h 1 Tab PO DAILY Crestor (Rosuvastatin Calcium) 40 Mg Tablet 1 Tab PO QHS Furosemide 40 Mg Tablet 1 Tab PO BID Aspir 81 (Aspirin) 81 Mg Tablet.dr 1 Tab PO DAILY Zetia (Ezetimibe) 10 Mg Tablet 10 Mg PO HS Flonase Allergy Relief (Fluticasone Propionate) 9.9 Ml [place].susp 2 Sprays NS DAILY PRN Niaspan (Niacin) 500 Mg Tab.er.24h 1 Tab PO QHS Esomeprazole Capsule (Esomeprazole Strontium) 40 Mg Capsule.dr 40 Mg PO DAILYAC Diazepam 2 Mg Tablet 2 Mg PO PRN Q4-6HRS PRN Coreg (Carvedilol) 25 Mg Tablet 1 Tab PO BID Vitals/I & O Vital Sign - Last 24 Hours 02/01/17 02/01/17 02/01/17 02/01/17 14:11 14:26 14:50 17:14 Temp 98.0 98.0 Pulse 70 Resp 20 18 B/P (MAP) 97/52 (67) Pulse Ox 95 95 94 O2 Delivery Room Air Room Air Room Air Room Air 02/01/17 02/01/17 02/01/17 02/01/17 17:21 17:40 18:40 20:00 Temp 97.5 97.5 Pulse 70 69 Resp 20 B/P (MAP) 115/68 100/56 (71) Pulse Ox 94 91 O2 Delivery Room Air Room Air Room Air 02/01/17 02/02/17 02/02/17 02/02/17 23:15 03:01 07:32 07:40 Temp 97.7 98.3 97.7 97.7 98.3 97.7 Pulse 65 73 79 Resp 20 20 18 B/P (MAP) 100/53 (69) 100/55 (70) 99/69 (79) Pulse Ox 92 93 95 O2 Delivery Room Air Room Air Room Air Room Air 02/02/17 02/02/17 02/02/17 02/02/17 07:55 07:56 07:56 10:09 Pulse 73 73 B/P (MAP) 100/55 100/55 Pulse Ox 93 93 O2 Delivery Room Air Room Air 02/02/17 02/02/17 02/02/17 02/02/17 10:23 10:50 10:55 12:35 Temp 97.9 97.9 Pulse 83 Resp 18 B/P (MAP) 99/54 (69) Pulse Ox 93 93 93 O2 Delivery Room Air Room Air Room Air Room Air 02/02/17 12:41 Pulse 83 B/P (MAP) 99/54 Intake and Output 02/01/17 02/01/17 02/02/17 15:00 23:00 07:00 Intake Total 1200 ml 740 ml 1100 ml Output Total 850 ml 900 ml Balance 350 ml 740 ml 200 ml WALLY ESQUEDA III DO Feb 02, 2017 13:15
[2017-02-02 15:26] VITALS: BP 100/59
--- NOTE | 2017-02-12 10:34 | DS ---
DATE OF DISCHARGE: 02/02/2017 ADMISSION DIAGNOSIS: Chest pain. DISCHARGE DIAGNOSES: Atypical chest pain, history of chronic angina, congestive heart failure and probable gastroesophageal reflux disease. HOSPITAL COURSE: The patient is a pleasant 46-year-old male who has known coronary artery disease, who presented with chest pain. We did serial enzymes, serial EKGs. His workup was negative. We did consult Cardiology. Basically, we discharged home with close outpatient followup. DISPOSITION: Home. ACTIVITY: As tolerated. DIET: Low sodium. MEDICATIONS: Please see the MRAD. TOTAL TIME: 34 minutes. WALLY ESQUEDA DO DR: SHAYNA/[place] JOB#: [id number] / [id number]
== END 2017-02-02 15:10 | disposition home or self-care (01) | DRG 291 ==
LOC: ER 02:12 → 2 SOUTH 03:00
PROVIDERS: ADMIT Internal Medicine Hematology & Oncology; ATTEND Internal Medicine Hematology & Oncology
DX: I13.0 Hypertensive heart and chronic kidney disease with heart failure and stage 1 through stage 4 chronic kidney disease, or unspecified chronic kidney disease (principal); I50.43 Acute on chronic combined systolic (congestive) and diastolic (congestive) heart failure; E66.01 Morbid (severe) obesity due to excess calories; Z95.1 Presence of aortocoronary bypass graft; I25.110 Atherosclerotic heart disease of native coronary artery with unstable angina pectoris; G62.9 Polyneuropathy, unspecified; I48.91 Unspecified atrial fibrillation; Z68.42 Body mass index [BMI] 45.0-49.9, adult; R07.89 Other chest pain; E78.00 Pure hypercholesterolemia, unspecified; E78.5 Hyperlipidemia, unspecified; F17.200 Nicotine dependence, unspecified, uncomplicated; F32.9 Major depressive disorder, single episode, unspecified; F41.9 Anxiety disorder, unspecified; G47.33 Obstructive sleep apnea (adult) (pediatric); G89.4 Chronic pain syndrome; I25.5 Ischemic cardiomyopathy; J44.9 Chronic obstructive pulmonary disease, unspecified; K21.9 Gastro-esophageal reflux disease without esophagitis; M48.00 Spinal stenosis, site unspecified; Z96.659 Presence of unspecified artificial knee joint; N18.9 Chronic kidney disease, unspecified; N20.0 Calculus of kidney; Z82.49 Family history of ischemic heart disease and other diseases of the circulatory system; Z87.442 Personal history of urinary calculi; I25.2 Old myocardial infarction; Z91.19 Patient's noncompliance with other medical treatment and regimen; Z95.5 Presence of coronary angioplasty implant and graft; Z90.49 Acquired absence of other specified parts of digestive tract; Z88.1 Allergy status to other antibiotic agents; Z88.0 Allergy status to penicillin
CPT/HCPCS: 99291; C8929; 36415; 71010; 80053; 83880; 84484; 85025; 90686; 90732; 93005; 99406; J1885; J1940; J2270

== ENCOUNTER 2017-03-31 01:23 | Inpatient (IN) | payer MEDICARE, MEDICAID ==
[2017-03-31 01:45] LABS: ADD MAN DIFF? NO
[2017-03-31] MEDS: ASPIRIN CHEWABLE 81 MG TABLET. PO (01:45)
[2017-03-31 01:47] LABS: BASO # 0.1 x10^3/uL (0.0-0.2); BASO % 1 % (0-3); EOS # 0.1 x10^3/uL (0.0-0.7); EOS % 2 % (0-3); HEMATOCRIT 45.1 % (39.0-53.0); HEMOGLOBIN 14.8 g/dL (13.0-17.5); LYMPH # 0.9 x10^3/uL (1.0-4.8); LYMPH % 15 % (24-48); MEAN CORPUSCULAR HEMOGLOBIN 30 pg (25-35); MEAN CORPUSCULAR HGB CONC 33 g/dL (31-37); MEAN CORPUSCULAR VOLUME 90 fL (79-100); MONO # 0.7 x10^3/uL (0.0-1.1); MONO % 11 % (0-9); NEUT # 4.2 x10^3uL (1.8-7.7); NEUT % 71 % (31-73); PLATELET COUNT 142 x10^3/uL (140-400); RED BLOOD COUNT 5.03 x10^6/uL (4.30-5.70); RED CELL DISTRIBUTION WIDTH 16.6 % (11.5-14.5); WHITE BLOOD COUNT 5.9 x10^3/uL (4.0-11.0)
[2017-03-31 02:02] LABS: ANION GAP 12 (6-14); BLOOD UREA NITROGEN 11 mg/dL (8-26); BUN/CREATININE RATIO 12 (6-20); CALCIUM 8.4 mg/dL (8.5-10.1); CARBON DIOXIDE 23 mmol/L (21-32); CHLORIDE 106 mmol/L (98-107); CREATININE 0.9 mg/dL (0.7-1.3); GFR 90.1; GLUCOSE 139 mg/dL (70-99); POTASSIUM 4.3 mmol/L (3.5-5.1); SODIUM 141 mmol/L (136-145)
[2017-03-31 02:07] LABS: ALBUMIN 3.5 g/dL (3.4-5.0); ALBUMIN/GLOBULIN RATIO 0.8 (1.0-1.7); ALK PHOS 115 U/L (46-116); ALT (SGPT) 35 U/L (16-63); AST (SGOT) 37 U/L (15-37); TOTAL BILIRUBIN 0.9 mg/dL (0.2-1.0)
[2017-03-31 02:09] LABS: TROPONINI 0.018 ng/mL (0.000-0.055)
[2017-03-31] MEDS: IV NORMAL SALINE 1000ML BAG 1,000 ML IV (02:16)
[2017-03-31] MEDS: HYDROcodone/APAP 10/325 1 TAB TABLET PO (02:16)
[2017-03-31] MEDS: NITROGLYCERIN OINT 1 GM PACKET. TP (02:16)
[2017-03-31] MEDS ORDERED: ONDANSETRON PF 4 MG/2 ML VIAL. IV (02:30)
[2017-03-31] MEDS: MORPHINE SULFATE 2 MG/ML DISP.SYRIN. IV ×4 (05:50→12:19)
[2017-03-31] MEDS: ACETAMINOPHEN 325 MG TABLET. PO (08:15)
[2017-03-31 08:50] LABS: TROPONINI 0.022 ng/mL (0.000-0.055)
[2017-03-31] MEDS ORDERED: ONDANSETRON ODT 4 MG TAB.RAPDIS. PO (11:45)
[2017-03-31] MEDS: OMEGA-3 FATTY ACIDS/FISH OIL 1,000 MG CAPSULE. PO (12:17)
[2017-03-31] MEDS: ASPIRIN ENTERIC COATED 81 MG TABLET.DR. PO (12:17)
[2017-03-31] MEDS: LISINOPRIL 10 MG TABLET PO (12:18)
[2017-03-31] MEDS: ISOSORBIDE MONONITRATE ER 30 MG TAB.ER.24H PO (12:19)
[2017-03-31] MEDS: CARVEDILOL 12.5 MG TABLET. PO ×2 (12:19→17:52)
[2017-03-31] MEDS: PANTOPRAZOLE 40 MG TABLET.DR. PO (12:19)
[2017-03-31] MEDS: diazePAM 2 MG TABLET PO (12:21)
[2017-03-31] MEDS: MORPHINE ER 30 MG TABLET.ER PO ×2 (14:11→21:17)
[2017-03-31 14:54] LABS: TROPONINI 0.017 ng/mL (0.000-0.055)
[2017-03-31] MEDS: HYDROmorphone 4 MG TABLET PO (16:04)
[2017-03-31] MEDS: FUROSEMIDE 40 MG TABLET. PO (16:04)
[2017-03-31] MEDS: ATORVASTATIN CALCIUM 40 MG TABLET. PO (21:15)
[2017-03-31] MEDS: EZETIMIBE 10 MG TABLET. PO (21:15)
[2017-03-31] MEDS: NIACIN ER 500 MG TABLET.ER PO (21:17)
[2017-04-01] MEDS: HYDROmorphone 4 MG TABLET PO ×3 (00:29→15:09)
[2017-04-01] MEDS: diazePAM 2 MG TABLET PO (03:50)
[2017-04-01 04:32] LABS: ADD MAN DIFF? NO
[2017-04-01 05:04] LABS: BASO # 0.1 x10^3/uL (0.0-0.2); BASO % 1 % (0-3); EOS # 0.1 x10^3/uL (0.0-0.7); EOS % 3 % (0-3); HEMATOCRIT 42.6 % (39.0-53.0); HEMOGLOBIN 13.8 g/dL (13.0-17.5); LYMPH % 21 % (24-48); MEAN CORPUSCULAR HEMOGLOBIN 29 pg (25-35); MEAN CORPUSCULAR HGB CONC 32 g/dL (31-37); MEAN CORPUSCULAR VOLUME 90 fL (79-100); MONO # 0.7 x10^3/uL (0.0-1.1); MONO % 15 % (0-9); NEUT # 2.9 x10^3uL (1.8-7.7); NEUT % 60 % (31-73); PLATELET COUNT 138 x10^3/uL (140-400); RED BLOOD COUNT 4.73 x10^6/uL (4.30-5.70); RED CELL DISTRIBUTION WIDTH 16.5 % (11.5-14.5); WHITE BLOOD COUNT 4.9 x10^3/uL (4.0-11.0)
[2017-04-01 05:20] LABS: ANION GAP 9 (6-14); BLOOD UREA NITROGEN 16 mg/dL (8-26); CALCIUM 8.5 mg/dL (8.5-10.1); CARBON DIOXIDE 27 mmol/L (21-32); CHLORIDE 102 mmol/L (98-107); CREATININE 0.9 mg/dL (0.7-1.3); GFR 90.1; GLUCOSE 102 mg/dL (70-99); POTASSIUM 4.2 mmol/L (3.5-5.1); SODIUM 138 mmol/L (136-145)
[2017-04-01] MEDS: PANTOPRAZOLE 40 MG TABLET.DR. PO (06:35)
[2017-04-01] MEDS: FUROSEMIDE 40 MG TABLET. PO (08:50)
[2017-04-01] MEDS: OMEGA-3 FATTY ACIDS/FISH OIL 1,000 MG CAPSULE. PO (08:50)
[2017-04-01] MEDS: ASPIRIN ENTERIC COATED 81 MG TABLET.DR. PO (08:50)
[2017-04-01] MEDS: ISOSORBIDE MONONITRATE ER 30 MG TAB.ER.24H PO (08:51)
[2017-04-01] MEDS: CARVEDILOL 12.5 MG TABLET. PO (08:52)
[2017-04-01] MEDS: MORPHINE ER 30 MG TABLET.ER PO ×2 (08:52→13:26)
[2017-04-01] MEDS: FLUTICASONE 50MCG/NASAL SPRAY 16GM BOTTLE. NS (08:53)
[2017-04-01] MEDS: LISINOPRIL 10 MG TABLET PO (13:25)
== END 2017-04-01 17:28 | disposition home or self-care (01) | DRG 303 ==
LOC: ER 01:23 → ED HOLD 02:17 → 2 NORTH 05:51
DX: I25.110 Atherosclerotic heart disease of native coronary artery with unstable angina pectoris (principal); I13.0 Hypertensive heart and chronic kidney disease with heart failure and stage 1 through stage 4 chronic kidney disease, or unspecified chronic kidney disease; E66.01 Morbid (severe) obesity due to excess calories; I50.22 Chronic systolic (congestive) heart failure; G62.9 Polyneuropathy, unspecified; I48.91 Unspecified atrial fibrillation; E78.5 Hyperlipidemia, unspecified; Z68.42 Body mass index [BMI] 45.0-49.9, adult; F43.22 Adjustment disorder with anxiety; F17.200 Nicotine dependence, unspecified, uncomplicated; G47.30 Sleep apnea, unspecified; F32.9 Major depressive disorder, single episode, unspecified; G89.29 Other chronic pain; M54.5 Low back pain; J44.9 Chronic obstructive pulmonary disease, unspecified; K21.9 Gastro-esophageal reflux disease without esophagitis; N18.9 Chronic kidney disease, unspecified; Z96.659 Presence of unspecified artificial knee joint; Z82.49 Family history of ischemic heart disease and other diseases of the circulatory system; Z83.3 Family history of diabetes mellitus; Z91.19 Patient's noncompliance with other medical treatment and regimen; Z87.442 Personal history of urinary calculi; Z95.1 Presence of aortocoronary bypass graft; Z95.5 Presence of coronary angioplasty implant and graft; Z88.0 Allergy status to penicillin; Z88.8 Allergy status to other drugs, medicaments and biological substances; Z90.49 Acquired absence of other specified parts of digestive tract
CPT/HCPCS: 36415; 71045; 71250; 80048; 80053; 84484; 85025; 93005; 96361; 96374; 99285; 99285-25; J2060; J2270; J7030